=== PATIENT | male | born 1980 | race Caucasian/White ===

== ENCOUNTER 2017-12-03 17:48 | Emergency (ER) | END 2017-12-03 20:25 | disposition home or self-care (01) ==

== ENCOUNTER 2019-08-23 18:44 | Emergency (ER) | payer OTHER ==
[~2019-08-23] VITALS: Ht 182.9 cm; Wt 115.2 kg
[~2019-08-23 18:44] MED LIST: Acetaminophen-1 EAC1 PO; BP MED; IBUP800 PO; INSULIN GLARGINE SC; METF500C PO; Robaxin-750750 MG PO
[2019-08-23 19:34] LABS: Hemoglobin 19.7 g/dL (13.5-17.5); Mean Corpuscular HGB 28.6 pg (26.0-34.0); Mean Corpuscular HGB Conc 33.3 g/dL (31.5-36.5); Mean Corpuscular Volume 86 fL (80-100); Mean Platelet Volume 10.1 fL (9.1-12.4); Platelet Count 226 K/mm3 (150-400); RDW Coefficient Variation 13.2 % (11.7-14.2); White Blood Cell Count 9.18 K/mm3 (4.00-11.30)
[2019-08-23 19:36] LABS: Hematocrit 59.1 % (37.0-53.0)
[2019-08-23 19:40] LABS: BASOPHILS ABSOLUTE AUTO 0.07 K/mm3 (0.00-0.23); BASOPHILS PERCENT AUTO 1 % (0-2); EOSINOPHILS ABSOLUTE AUTO 0.12 K/mm3 (0.00-0.68); EOSINOPHILS PERCENT AUTO 1 % (0-6); IMMATURE GRAN ABSOLUTE AUTO 0.01 K/mm3 (0.00-0.10); IMMATURE GRAN PERCENT AUTO 0 % (0-1); LYMPHOCYTES ABSOLUTE AUTO 3.15 K/mm3 (0.84-5.20); LYMPHOCYTES PERCENT AUTO 34 % (21-46); MONOCYTES ABSOLUTE AUTO 0.71 K/mm3 (0.16-1.47); MONOCYTES PERCENT AUTO 8 % (4-13); NEUTROPHILS ABSOLUTE AUTO 5.12 K/mm3 (1.96-9.15); NEUTROPHILS PERCENT AUTO 56 % (41-73)
[2019-08-23 19:54] LABS: Alanine Aminotransfer (ALT/SGP 31 U/L (12-78); Albumin, Blood 3.6 g/dL (3.4-5.0); Albumin/Globulin Ratio 0.9 (0.8-1.8); Alk Phos 81 U/L (50-136); Anion Gap 8 mmol/L (6-16); Aspartate Aminotrans (AST/SGOT 24 U/L (12-37); Bilirubin, Total 0.3 mg/dL (0.1-1.0); Blood Urea Nitrogen 13 mg/dL (8-24); CO2, Blood 23 mmol/L (21-32); Calcium, Blood 9.5 mg/dL (8.5-10.1); Chloride, Blood 106 mmol/L (98-108); Creatinine, Blood 0.76 mg/dL (0.60-1.20); Globulin, Blood 3.9 g/dL (2.2-4.0); Glomerular Filtration Rate >60 (60-); Glucose, Blood 295 mg/dL (70-99); Potassium, Blood 3.9 mmol/L (3.5-5.5); Sodium, Blood 137 mmol/L (136-145); Total Protein, Blood 7.5 g/dL (6.4-8.2); Troponin I <0.015 ng/mL (0.000-0.040)
[2019-08-23] MEDS ORDERED: Prinivil10 MG PO (22:08)
== END 2019-08-23 22:39 | disposition home or self-care (01) ==
LOC: ER 18:44
PROVIDERS: Physician Assistant
DX: I10 Essential (primary) hypertension (principal); F41.9 Anxiety disorder, unspecified; E11.9 Type 2 diabetes mellitus without complications; F17.200 Nicotine dependence, unspecified, uncomplicated; Z79.84 Long term (current) use of oral hypoglycemic drugs; Z79.899 Other long term (current) drug therapy
CPT/HCPCS: 36415; 71046; 80053; 82947; 84484; 85025; 93005; 93010; 96374; 96375; 99284-25; J2060

== ENCOUNTER 2019-08-25 12:38 | Emergency (ER) | payer OTHER ==
[~2019-08-25] VITALS: Ht 182.9 cm; Wt 113.4 kg
[~2019-08-25 12:38] MED LIST changes: +Prinivil10 MG PO
[2019-08-25 13:09] LABS: BASOPHILS ABSOLUTE AUTO 0.05 K/mm3 (0.00-0.23); BASOPHILS PERCENT AUTO 1 % (0-2); EOSINOPHILS ABSOLUTE AUTO 0.13 K/mm3 (0.00-0.68); EOSINOPHILS PERCENT AUTO 2 % (0-6); Hemoglobin 20.4 g/dL (13.5-17.5); IMMATURE GRAN ABSOLUTE AUTO 0.01 K/mm3 (0.00-0.10); IMMATURE GRAN PERCENT AUTO 0 % (0-1); LYMPHOCYTES ABSOLUTE AUTO 2.33 K/mm3 (0.84-5.20); LYMPHOCYTES PERCENT AUTO 36 % (21-46); MONOCYTES ABSOLUTE AUTO 0.41 K/mm3 (0.16-1.47); MONOCYTES PERCENT AUTO 6 % (4-13); Mean Corpuscular HGB Conc 33.1 g/dL (31.5-36.5); Mean Corpuscular Volume 88 fL (80-100); Mean Platelet Volume 9.7 fL (9.1-12.4); NEUTROPHILS ABSOLUTE AUTO 3.52 K/mm3 (1.96-9.15); NEUTROPHILS PERCENT AUTO 55 % (41-73); Platelet Count 218 K/mm3 (150-400); RDW Coefficient Variation 14.2 % (11.7-14.2); RDW Standard Deviation 43.2 fL (35.1-46.3); Red Blood Cell Count 7.04 M/mm3 (4.30-5.90); White Blood Cell Count 6.45 K/mm3 (4.00-11.30)
[2019-08-25 13:19] LABS: Hematocrit 61.6 % (37.0-53.0)
[2019-08-25 13:27] LABS: Alanine Aminotransfer (ALT/SGP 34 U/L (12-78); Albumin, Blood 3.6 g/dL (3.4-5.0); Albumin/Globulin Ratio 0.9 (0.8-1.8); Alk Phos 84 U/L (50-136); Anion Gap 7 mmol/L (6-16); Aspartate Aminotrans (AST/SGOT 18 U/L (12-37); Bilirubin, Total 0.5 mg/dL (0.1-1.0); Blood Urea Nitrogen 9 mg/dL (8-24); Bun/Creatinine Ratio 11.7 (12.0-20.0); CO2, Blood 26 mmol/L (21-32); Calcium, Blood 9.2 mg/dL (8.5-10.1); Chloride, Blood 106 mmol/L (98-108); Creatinine, Blood 0.77 mg/dL (0.60-1.20); Globulin, Blood 4.1 g/dL (2.2-4.0); Glomerular Filtration Rate >60 (60-); Glucose, Blood 259 mg/dL (70-99); Sodium, Blood 139 mmol/L (136-145); Total Protein, Blood 7.7 g/dL (6.4-8.2); Troponin I <0.015 ng/mL (0.000-0.040)
[2019-08-25] MEDS ORDERED: Roxicodone5 MG PO (16:23)
== END 2019-08-25 16:33 | disposition home or self-care (01) ==
LOC: ER 12:38
PROVIDERS: Physician Assistant
DX: D75.1 Secondary polycythemia (principal); E11.9 Type 2 diabetes mellitus without complications; I10 Essential (primary) hypertension; F17.210 Nicotine dependence, cigarettes, uncomplicated
CPT/HCPCS: 36415; 70450; 80053; 83880; 84484; 85025; 93005; 93010; 99284-25

== ENCOUNTER 2019-09-24 19:37 | Emergency (ER) | payer OTHER ==
[~2019-09-24] VITALS: Ht 182.9 cm; Wt 112.5 kg
[~2019-09-24 19:37] MED LIST changes: +BENZ100A PO; +MOTRIN IB200 MG PO; +ONDA4ODT SL; +Roxicodone5 MG PO; +Tamiflu75 MG PO
[2019-09-24 20:21] LABS: BASOPHILS ABSOLUTE AUTO 0.06 K/mm3 (0.00-0.23); BASOPHILS PERCENT AUTO 1 % (0-2); EOSINOPHILS ABSOLUTE AUTO 0.15 K/mm3 (0.00-0.68); EOSINOPHILS PERCENT AUTO 2 % (0-6); Hematocrit 51.2 % (37.0-53.0); Hemoglobin 17.1 g/dL (13.5-17.5); IMMATURE GRAN ABSOLUTE AUTO 0.02 K/mm3 (0.00-0.10); IMMATURE GRAN PERCENT AUTO 0 % (0-1); LYMPHOCYTES ABSOLUTE AUTO 2.98 K/mm3 (0.84-5.20); LYMPHOCYTES PERCENT AUTO 40 % (21-46); MONOCYTES PERCENT AUTO 8 % (4-13); Mean Corpuscular HGB 28.8 pg (26.0-34.0); Mean Corpuscular HGB Conc 33.4 g/dL (31.5-36.5); Mean Corpuscular Volume 86 fL (80-100); Mean Platelet Volume 9.4 fL (9.1-12.4); NEUTROPHILS ABSOLUTE AUTO 3.74 K/mm3 (1.96-9.15); NEUTROPHILS PERCENT AUTO 50 % (41-73); Platelet Count 232 K/mm3 (150-400); RDW Coefficient Variation 13.1 % (11.7-14.2); RDW Standard Deviation 40.7 fL (35.1-46.3); Red Blood Cell Count 5.93 M/mm3 (4.30-5.90); White Blood Cell Count 7.55 K/mm3 (4.00-11.30)
[2019-09-24 20:44] LABS: Alanine Aminotransfer (ALT/SGP 35 U/L (12-78); Albumin, Blood 3.1 g/dL (3.4-5.0); Albumin/Globulin Ratio 0.8 (0.8-1.8); Alk Phos 92 U/L (50-136); Anion Gap 5 mmol/L (6-16); Aspartate Aminotrans (AST/SGOT 18 U/L (12-37); Bilirubin, Total 0.2 mg/dL (0.1-1.0); Blood Urea Nitrogen 12 mg/dL (8-24); Bun/Creatinine Ratio 15.5 (12.0-20.0); CO2, Blood 27 mmol/L (21-32); Calcium, Blood 9.1 mg/dL (8.5-10.1); Chloride, Blood 107 mmol/L (98-108); Creatinine, Blood 0.77 mg/dL (0.60-1.20); Globulin, Blood 3.7 g/dL (2.2-4.0); Glomerular Filtration Rate >60 (60-); Glucose, Blood 178 mg/dL (70-99); Potassium, Blood 3.9 mmol/L (3.5-5.5); Sodium, Blood 139 mmol/L (136-145); Total Protein, Blood 6.8 g/dL (6.4-8.2); Troponin I <0.015 ng/mL (0.000-0.040)
== END 2019-09-24 22:26 | disposition home or self-care (01) ==
LOC: ER 19:37
PROVIDERS: Physician Assistant
DX: R07.9 Chest pain, unspecified (principal); E11.9 Type 2 diabetes mellitus without complications; I10 Essential (primary) hypertension; F17.210 Nicotine dependence, cigarettes, uncomplicated; Z79.899 Other long term (current) drug therapy
CPT/HCPCS: 36415; 71046; 80053; 83880; 84484; 85025; 93005; 93010; 99284-25

== ENCOUNTER → 2019-11-17 | Outpatient (CLI) | payer OTHER ==
[~2019-11-17] MED LIST changes: +ATOR10 PO; +METF500 PO; +PRED5 PO
[2019-11-17 13:26] LABS: BASOPHILS ABSOLUTE AUTO 0.07 K/mm3 (0.00-0.23); BASOPHILS PERCENT AUTO 1 % (0-2); EOSINOPHILS ABSOLUTE AUTO 0.22 K/mm3 (0.00-0.68); EOSINOPHILS PERCENT AUTO 4 % (0-6); Hematocrit 50.4 % (37.0-53.0); Hemoglobin 17.2 g/dL (13.5-17.5); IMMATURE GRAN ABSOLUTE AUTO 0.01 K/mm3 (0.00-0.10); IMMATURE GRAN PERCENT AUTO 0 % (0-1); LYMPHOCYTES PERCENT AUTO 47 % (21-46); MONOCYTES ABSOLUTE AUTO 0.39 K/mm3 (0.16-1.47); MONOCYTES PERCENT AUTO 7 % (4-13); Mean Corpuscular HGB 29.1 pg (26.0-34.0); Mean Corpuscular HGB Conc 34.1 g/dL (31.5-36.5); Mean Corpuscular Volume 85 fL (80-100); Mean Platelet Volume 9.6 fL (9.1-12.4); NEUTROPHILS ABSOLUTE AUTO 2.35 K/mm3 (1.96-9.15); NEUTROPHILS PERCENT AUTO 41 % (41-73); Platelet Count 232 K/mm3 (150-400); RDW Coefficient Variation 13.2 % (11.7-14.2); RDW Standard Deviation 41.2 fL (35.1-46.3); Red Blood Cell Count 5.91 M/mm3 (4.30-5.90); White Blood Cell Count 5.74 K/mm3 (4.00-11.30)
[2019-11-17 13:32] LABS: Anion Gap 8 mmol/L (6-16); Blood Urea Nitrogen 11 mg/dL (8-24); Bun/Creatinine Ratio 10.9 (12.0-20.0); CO2, Blood 26 mmol/L (21-32); Calcium, Blood 8.8 mg/dL (8.5-10.1); Chloride, Blood 105 mmol/L (98-108); Creatinine, Blood 1.01 mg/dL (0.60-1.20); Glomerular Filtration Rate >60 (60-); Glucose, Blood 205 mg/dL (70-99); Potassium, Blood 3.9 mmol/L (3.5-5.5); Sodium, Blood 139 mmol/L (136-145)
== END | disposition home or self-care (01) ==
LOC: LAB SHORT 13:22 → LAB 13:22 → LAB EV 13:22
PROVIDERS: Physician Assistant Medical
DX: M54.5 Low back pain (principal)
CPT/HCPCS: 80048; 85025

== ENCOUNTER 2019-11-22 22:54 | Emergency (ER) | payer OTHER ==
[~2019-11-22] VITALS: Ht 182.9 cm; Wt 114.3 kg
[~2019-11-22 22:54] MED LIST changes: -ATOR10 PO; -METF500 PO; -PRED5 PO
[2019-11-22] MEDS ORDERED: PRED5 PO (23:05)
[2019-11-22] MEDS ORDERED: ATOR10 PO (23:05)
[2019-11-22] MEDS ORDERED: METF500 PO (23:05)
[2019-11-22 23:12] LABS: BASOPHILS ABSOLUTE AUTO 0.03 K/mm3 (0.00-0.23); BASOPHILS PERCENT AUTO 0 % (0-2); EOSINOPHILS PERCENT AUTO 0 % (0-6); Hematocrit 51.3 % (37.0-53.0); Hemoglobin 17.4 g/dL (13.5-17.5); IMMATURE GRAN ABSOLUTE AUTO 0.03 K/mm3 (0.00-0.10); IMMATURE GRAN PERCENT AUTO 0 % (0-1); LYMPHOCYTES ABSOLUTE AUTO 2.25 K/mm3 (0.84-5.20); LYMPHOCYTES PERCENT AUTO 22 % (21-46); MONOCYTES ABSOLUTE AUTO 0.58 K/mm3 (0.16-1.47); MONOCYTES PERCENT AUTO 6 % (4-13); Mean Corpuscular HGB 28.6 pg (26.0-34.0); Mean Corpuscular HGB Conc 33.9 g/dL (31.5-36.5); Mean Corpuscular Volume 84 fL (80-100); Mean Platelet Volume 10.5 fL (9.1-12.4); NEUTROPHILS ABSOLUTE AUTO 7.51 K/mm3 (1.96-9.15); NEUTROPHILS PERCENT AUTO 72 % (41-73); Platelet Count 305 K/mm3 (150-400); RDW Coefficient Variation 12.9 % (11.7-14.2); Red Blood Cell Count 6.08 M/mm3 (4.30-5.90)
[2019-11-22 23:59] LABS: Alanine Aminotransfer (ALT/SGP 32 U/L (12-78); Albumin, Blood 3.1 g/dL (3.4-5.0); Albumin/Globulin Ratio 0.8 (0.8-1.8); Alk Phos 71 U/L (50-136); Anion Gap 11 mmol/L (6-16); Aspartate Aminotrans (AST/SGOT 16 U/L (12-37); Bilirubin, Total 0.3 mg/dL (0.1-1.0); Blood Urea Nitrogen 12 mg/dL (8-24); CO2, Blood 20 mmol/L (21-32); Calcium, Blood 8.8 mg/dL (8.5-10.1); Chloride, Blood 107 mmol/L (98-108); Creatinine, Blood 0.67 mg/dL (0.60-1.20); Globulin, Blood 3.8 g/dL (2.2-4.0); Glomerular Filtration Rate >60 (60-); Glucose, Blood 219 mg/dL (70-99); Potassium, Blood 3.6 mmol/L (3.5-5.5); Sodium, Blood 138 mmol/L (136-145); Total Protein, Blood 6.9 g/dL (6.4-8.2); Troponin I <0.015 ng/mL (0.000-0.040)
== END 2019-11-23 01:10 | disposition home or self-care (01) ==
LOC: ER 22:54
PROVIDERS: Emergency Medicine
DX: R07.89 Other chest pain (principal); I10 Essential (primary) hypertension; E11.9 Type 2 diabetes mellitus without complications; E78.5 Hyperlipidemia, unspecified; Z79.899 Other long term (current) drug therapy; Z79.84 Long term (current) use of oral hypoglycemic drugs
CPT/HCPCS: 71046; 80053; 83690; 83880; 84484; 85025; 93005; 93010; 99285-25

== ENCOUNTER → 2019-12-17 | Outpatient (CLI) | payer OTHER ==
[~2019-12-17] MED LIST changes: +ATOR10 PO; +METF500 PO; +PRED5 PO
[2019-12-17 20:22] LABS: Free Thyroxine 1.14 ng/dL (0.70-1.60)
[2019-12-17 20:26] LABS: Thyroid Stimulating Hormone 0.988 uIU/mL (0.360-4.800)
== END | disposition home or self-care (01) ==
LOC: LAB SHORT 19:07 → LAB 19:07
PROVIDERS: Internal Medicine Hematology & Oncology
DX: R53.83 Other fatigue (principal)
CPT/HCPCS: 84439; 84443

== ENCOUNTER 2020-04-13 19:08 | Emergency (ER) | payer OTHER ==
[~2020-04-13] VITALS: Ht 182.9 cm; Wt 107.5 kg
[2020-04-13 19:53] LABS: BASOPHILS ABSOLUTE AUTO 0.05 K/mm3 (0.00-0.23); BASOPHILS PERCENT AUTO 1 % (0-2); EOSINOPHILS ABSOLUTE AUTO 0.15 K/mm3 (0.00-0.68); EOSINOPHILS PERCENT AUTO 2 % (0-6); Hematocrit 52.4 % (37.0-53.0); Hemoglobin 16.9 g/dL (13.5-17.5); IMMATURE GRAN ABSOLUTE AUTO 0.01 K/mm3 (0.00-0.10); IMMATURE GRAN PERCENT AUTO 0 % (0-1); LYMPHOCYTES ABSOLUTE AUTO 2.61 K/mm3 (0.84-5.20); LYMPHOCYTES PERCENT AUTO 39 % (21-46); MONOCYTES ABSOLUTE AUTO 0.54 K/mm3 (0.16-1.47); MONOCYTES PERCENT AUTO 8 % (4-13); Mean Corpuscular HGB 26.4 pg (26.0-34.0); Mean Corpuscular HGB Conc 32.3 g/dL (31.5-36.5); Mean Corpuscular Volume 82 fL (80-100); NEUTROPHILS ABSOLUTE AUTO 3.26 K/mm3 (1.96-9.15); NEUTROPHILS PERCENT AUTO 49 % (41-73); Platelet Count 263 K/mm3 (150-400); RDW Coefficient Variation 14.7 % (11.7-14.2); Red Blood Cell Count 6.41 M/mm3 (4.30-5.90); White Blood Cell Count 6.62 K/mm3 (4.00-11.30)
[2020-04-13 20:20] LABS: Troponin I <0.015 ng/mL (0.000-0.040)
[2020-04-13 20:29] LABS: Alanine Aminotransfer (ALT/SGP 28 U/L (12-78); Albumin, Blood 3.4 g/dL (3.4-5.0); Albumin/Globulin Ratio 0.8 (0.8-1.8); Alk Phos 90 U/L (50-136); Anion Gap 7 mmol/L (6-16); Aspartate Aminotrans (AST/SGOT 17 U/L (12-37); Bilirubin, Total 0.4 mg/dL (0.1-1.0); Blood Urea Nitrogen 11 mg/dL (8-24); Bun/Creatinine Ratio 13.4 (12.0-20.0); CO2, Blood 27 mmol/L (21-32); Calcium, Blood 9.8 mg/dL (8.5-10.1); Chloride, Blood 109 mmol/L (98-108); Creatinine, Blood 0.82 mg/dL (0.60-1.20); Glomerular Filtration Rate >60 (60-); Glucose, Blood 211 mg/dL (70-99); Potassium, Blood 3.4 mmol/L (3.5-5.5); Sodium, Blood 143 mmol/L (136-145); Total Protein, Blood 7.4 g/dL (6.4-8.2)
== END 2020-04-13 21:17 | disposition home or self-care (01) ==
LOC: ER 19:08
PROVIDERS: Physician Assistant
DX: R51.9 Headache, unspecified (principal); R42 Dizziness and giddiness; R03.0 Elevated blood-pressure reading, without diagnosis of hypertension; F17.210 Nicotine dependence, cigarettes, uncomplicated; Z79.84 Long term (current) use of oral hypoglycemic drugs; Z79.899 Other long term (current) drug therapy; Z20.828 Contact with and (suspected) exposure to other viral communicable diseases
CPT/HCPCS: 36415; 70450; 71046; 80053; 84484; 85025; 93005; 93010; 99284-25; U0003

== ENCOUNTER 2020-06-29 19:12 | Observation (INO) | payer OTHER ==
[~2020-06-29] VITALS: Ht 182.9 cm; Wt 108.7 kg
[~2020-06-29 19:12] MED LIST changes: -METF500 PO
[2020-06-29 19:45] LABS: BASOPHILS ABSOLUTE AUTO 0.02 K/mm3 (0.00-0.23); BASOPHILS PERCENT AUTO 0 % (0-2); EOSINOPHILS ABSOLUTE AUTO 0.08 K/mm3 (0.00-0.68); EOSINOPHILS PERCENT AUTO 1 % (0-6); Hematocrit 50.2 % (37.0-53.0); Hemoglobin 16.5 g/dL (13.5-17.5); IMMATURE GRAN ABSOLUTE AUTO 0.02 K/mm3 (0.00-0.10); IMMATURE GRAN PERCENT AUTO 0 % (0-1); LYMPHOCYTES ABSOLUTE AUTO 2.68 K/mm3 (0.84-5.20); LYMPHOCYTES PERCENT AUTO 36 % (21-46); MONOCYTES ABSOLUTE AUTO 0.44 K/mm3 (0.16-1.47); MONOCYTES PERCENT AUTO 6 % (4-13); Mean Corpuscular HGB 25.7 pg (26.0-34.0); Mean Corpuscular HGB Conc 32.9 g/dL (31.5-36.5); Mean Corpuscular Volume 78 fL (80-100); Mean Platelet Volume 9.4 fL (9.1-12.4); NEUTROPHILS ABSOLUTE AUTO 4.14 K/mm3 (1.96-9.15); NEUTROPHILS PERCENT AUTO 56 % (41-73); Platelet Count 239 K/mm3 (150-400); RDW Coefficient Variation 15.5 % (11.7-14.2); RDW Standard Deviation 41.1 fL (35.1-46.3); Red Blood Cell Count 6.42 M/mm3 (4.30-5.90); White Blood Cell Count 7.38 K/mm3 (4.00-11.30)
[2020-06-29 20:16] LABS: Alanine Aminotransfer (ALT/SGP 35 U/L (12-78); Albumin, Blood 3.2 g/dL (3.4-5.0); Albumin/Globulin Ratio 0.9 (0.8-1.8); Alk Phos 108 U/L (50-136); Anion Gap 10 mmol/L (6-16); Aspartate Aminotrans (AST/SGOT 19 U/L (12-37); Bilirubin, Total 0.3 mg/dL (0.1-1.0); Blood Urea Nitrogen 9 mg/dL (8-24); Bun/Creatinine Ratio 11.3 (12.0-20.0); CO2, Blood 24 mmol/L (21-32); Calcium, Blood 9.5 mg/dL (8.5-10.1); Chloride, Blood 103 mmol/L (98-108); Globulin, Blood 3.7 g/dL (2.2-4.0); Glomerular Filtration Rate >60 (60-); Glucose, Blood 238 mg/dL (70-99); Potassium, Blood 3.3 mmol/L (3.5-5.5); Sodium, Blood 137 mmol/L (136-145); Total Protein, Blood 6.9 g/dL (6.4-8.2); Troponin I <0.015 ng/mL (0.000-0.040)
[2020-06-29] MEDS ORDERED: Prinivil10 MG PO (21:44)
--- NOTE | 2020-06-29 23:22 | NUR ---
ADMIT NOTE RECEIVED HANDOFF FROM ER NURSE BRO. PT ARRIVED ON FLOOR VIA GURNEY. PERSONNAL POSSESSIONS WITH PT. PT ORIENTED TO UNIT. CALL BUTTON WITHIN REACH
[2020-06-30 04:44] LABS: BASOPHILS ABSOLUTE AUTO 0.02 K/mm3 (0.00-0.23); BASOPHILS PERCENT AUTO 0 % (0-2); EOSINOPHILS ABSOLUTE AUTO 0.09 K/mm3 (0.00-0.68); EOSINOPHILS PERCENT AUTO 1 % (0-6); Hematocrit 49.7 % (37.0-53.0); Hemoglobin 15.6 g/dL (13.5-17.5); IMMATURE GRAN ABSOLUTE AUTO 0.02 K/mm3 (0.00-0.10); IMMATURE GRAN PERCENT AUTO 0 % (0-1); LYMPHOCYTES ABSOLUTE AUTO 2.78 K/mm3 (0.84-5.20); LYMPHOCYTES PERCENT AUTO 45 % (21-46); MONOCYTES ABSOLUTE AUTO 0.59 K/mm3 (0.16-1.47); MONOCYTES PERCENT AUTO 10 % (4-13); Mean Corpuscular HGB 24.8 pg (26.0-34.0); Mean Corpuscular HGB Conc 31.4 g/dL (31.5-36.5); Mean Corpuscular Volume 79 fL (80-100); Mean Platelet Volume 9.6 fL (9.1-12.4); NEUTROPHILS ABSOLUTE AUTO 2.74 K/mm3 (1.96-9.15); NEUTROPHILS PERCENT AUTO 44 % (41-73); Platelet Count 237 K/mm3 (150-400); RDW Coefficient Variation 14.7 % (11.7-14.2); White Blood Cell Count 6.24 K/mm3 (4.00-11.30)
[2020-06-30 05:03] LABS: Alanine Aminotransfer (ALT/SGP 30 U/L (12-78); Albumin, Blood 2.7 g/dL (3.4-5.0); Albumin/Globulin Ratio 0.8 (0.8-1.8); Alk Phos 98 U/L (50-136); Anion Gap 5 mmol/L (6-16); Aspartate Aminotrans (AST/SGOT 15 U/L (12-37); Bilirubin, Total 0.3 mg/dL (0.1-1.0); Blood Urea Nitrogen 12 mg/dL (8-24); CO2, Blood 30 mmol/L (21-32); Calcium, Blood 9.1 mg/dL (8.5-10.1); Chloride, Blood 108 mmol/L (98-108); Creatinine, Blood 0.86 mg/dL (0.60-1.20); Globulin, Blood 3.5 g/dL (2.2-4.0); Glomerular Filtration Rate >60 (60-); Glucose, Blood 190 mg/dL (70-99); Potassium, Blood 3.6 mmol/L (3.5-5.5); Sodium, Blood 143 mmol/L (136-145); Total Protein, Blood 6.2 g/dL (6.4-8.2)
--- NOTE | 2020-06-30 05:03 | NUR ---
SHIFT SUMMARY ADMITTED FROM ER THIS SHIFT FOR CHEST PAIN/HTN. FULL CODE. PLAN IS FOR CARDIOLOGY CONSULT: POSSIBLY PAPER WOOD CUTTER VS STRESS TEST THIS MORNING. PT HAS HAD NO CAFFEINE OR CHOCOLATE SINCE ADMIT, PT HAS BEEN NPO SINCE MIDNIGHT THIS SHIFT. HE DENIES PAIN THIS SHIFT. TELEMETRY: NSR @ 87 BPM. LOVENOX HAS BEEN HELD.
[2020-06-30 05:07] LABS: CPK Creatine Kinase 48 U/L (39-308); Troponin I <0.015 ng/mL (0.000-0.040)
[2020-06-30 08:25] LABS: Source, Urine Clean Catch
[2020-06-30 08:28] LABS: Appearance, Urine Clear (Clear); Bilirubin, Urine Neg (Neg); Blood, Urine Neg (Neg); Color, Urine Yellow (P-Yellow); Glucose Qualitative, Urine 4+ (Neg); Ketones, Urine Neg (Neg); Leukocyte Esterase, Urine Neg (Neg); Nitrite, Urine Neg (Neg); Protein, Urine 4+ (Neg); Specific Gravity, Urine 1.025 (1.003-1.022); Urobilinogen, Urine NORM (Normal)
[2020-06-30 08:52] LABS: Bacteria Rare /hpf; Mucus Mod (0-Heavy); Red Blood Cells, Urine 0-2 /hpf (0-2); Squamous Epithelial Cells Not Seen /hpf (Few); White Blood Cells, Urine 0-2 /hpf (0-5)
[2020-06-30 08:53] LABS: Calcium Oxalate Crystals Many /hpf; Hyaline Casts 0-2 /lpf (0-2)
[2020-06-30 08:58] LABS: U Amphetamine Screen Not Detected; U Barbituate Screen Not Detected; U Benzodiazapine Screen Not Detected; U Buprenorphine Screen Not Detected; U Cannabinoids Screen Not Detected; U Cocaine Screen Not Detected; U Methadone Screen Not Detected; U Methamphetamine Screen Not Detected; U Opiates Screen Not Detected; U Oxycodone Screen Not Detected; U Phencyclidine Screen Not Detected; U Propoxyphene Screen Not Detected
[2020-06-30 12:21] LABS: CPK Creatine Kinase 46 U/L (39-308); Troponin I <0.015 ng/mL (0.000-0.040)
[2020-06-30] MEDS ORDERED: BASAGLAR INSULIN SC (15:28)
--- NOTE | 2020-06-30 20:03 | NUR ---
SUMMARY PT IS A/O X4, IND IN ROOM. HE STATE CONTINUING L CHEST PRESSURE THAT RADIATES TO HIS NECK, TOLERABLE T/O DAY. CARDIAC ENZYMES HAVE BEEN WNL. TELE MX REPORT NSR 90-100. HE HAD CARDIAC CONSULT w DR SILVA THIS AM, STRESS TEST ORDERED. 1ST PORTION OF STRESS TEST & ECHO COMPLETED TODAY. HE WILL HAVE 2ND PORTION STRESS TEST TOMORROW, NPO @ 0600. NOC RN NOTIFIED. BP HAVE BEEN ELEVATED, PT STATE THIS HAS BEEN ONGOING @ HOME PRIOR TO ADMIT w SBP HIGH 200. THIS AFTERNOON SBP 170'S, PRN HYDRALAZINE INEFFECTIVE. DR JEONG ORDER IV LEBETALOL, GIVEN. NOC RN WILL MX FOR EFFECTIVENESS. PT STATE MULT STRESSORS, ENCOURAGED HIM TO TALK TO ABOUT ANTIDEPRESSANT IN AM.
--- NOTE | 2020-07-01 04:47 | NUR ---
SHIFT SUMMARY PT IS A/O X4 AND IND IN ROOM. PT REPORTS CHEST PRESSURE/PAIN, WHICH HE STATES HAS NOT CHANGED OR INCREASED SINCE ADMIT. DENIES NEED FOR MEDICATION OVERNIGHT. BP IMPROVING SOMEWHAT OVERNIGHT. PT ON TELE, HAS BEEN SINUS OVERNIGHT PER PASTE UP ARTIST. WILL BE NPO AT 0600 FOR STRESS TEST TODAY. PT RESTING AT THIS TIME, CALL LIGHT IN REACH.
[2020-07-01 12:25] LABS: Anion Gap 6 mmol/L (6-16); Blood Urea Nitrogen 12 mg/dL (8-24); Bun/Creatinine Ratio 14.7 (12.0-20.0); CO2, Blood 25 mmol/L (21-32); Calcium, Blood 8.8 mg/dL (8.5-10.1); Chloride, Blood 108 mmol/L (98-108); Creatinine, Blood 0.82 mg/dL (0.60-1.20); Glomerular Filtration Rate >60 (60-); Glucose, Blood 252 mg/dL (70-99); Magnesium, Blood 2.1 mg/dL (1.6-2.4); Potassium, Blood 3.8 mmol/L (3.5-5.5); Sodium, Blood 139 mmol/L (136-145)
[2020-07-01] MEDS ORDERED: ASPI81CH PO (16:48)
[2020-07-01] MEDS ORDERED: CARV3.125 PO (16:48)
--- NOTE | 2020-07-01 17:12 | NUR ---
PATIENT DISCHARGED HOME WITH . VERBALIZED UNDERSTANDING OF ALL DISCHARGE INSTRUCTIONS AND ALL QUESTIONS ANSWERED. ALL PERSONAL BELONGINGS IN HIS POSSESSION.
== END 2020-07-01 17:06 | disposition home or self-care (01) ==
LOC: ER 19:12 → MEDS 19:13
PROVIDERS: Emergency Medicine; Family Medicine; ADMIT Internal Medicine
DX: R07.9 Chest pain, unspecified (principal); I16.0 Hypertensive urgency; I10 Essential (primary) hypertension; E87.6 Hypokalemia; E11.65 Type 2 diabetes mellitus with hyperglycemia; R94.31 Abnormal electrocardiogram [ECG] [EKG]; E78.5 Hyperlipidemia, unspecified; F17.210 Nicotine dependence, cigarettes, uncomplicated; D75.1 Secondary polycythemia; E66.9 Obesity, unspecified; Z68.27 Body mass index [BMI] 27.0-27.9, adult; Z79.84 Long term (current) use of oral hypoglycemic drugs; Z79.899 Other long term (current) drug therapy; Z23 Encounter for immunization; Z79.82 Long term (current) use of aspirin; Z20.828 Contact with and (suspected) exposure to other viral communicable diseases
CPT/HCPCS: 36415; 71045; 78452; 80048; 80053; 81001; 82550; 82947; 83036; 83735; 83880; 84484; 85025; 85379; 93005; 93010; 93017; 93306; 99285-25; A9270; A9270-GY; A9500; J0360; J1650

== ENCOUNTER 2020-07-04 01:35 | Emergency (ER) | payer OTHER ==
[~2020-07-04] VITALS: Ht 182.9 cm; Wt 107.0 kg
[~2020-07-04 01:35] MED LIST changes: +ASPI81CH PO; +BASAGLAR INSULIN SC; +CARV3.125 PO
[2020-07-04 02:19] LABS: BASOPHILS ABSOLUTE AUTO 0.04 K/mm3 (0.00-0.23); BASOPHILS PERCENT AUTO 1 % (0-2); EOSINOPHILS ABSOLUTE AUTO 0.08 K/mm3 (0.00-0.68); EOSINOPHILS PERCENT AUTO 1 % (0-6); Hematocrit 55.1 % (37.0-53.0); Hemoglobin 17.3 g/dL (13.5-17.5); IMMATURE GRAN ABSOLUTE AUTO 0.02 K/mm3 (0.00-0.10); IMMATURE GRAN PERCENT AUTO 0 % (0-1); LYMPHOCYTES ABSOLUTE AUTO 3.04 K/mm3 (0.84-5.20); LYMPHOCYTES PERCENT AUTO 41 % (21-46); MONOCYTES ABSOLUTE AUTO 0.75 K/mm3 (0.16-1.47); MONOCYTES PERCENT AUTO 10 % (4-13); Mean Corpuscular HGB 24.7 pg (26.0-34.0); Mean Corpuscular HGB Conc 31.4 g/dL (31.5-36.5); Mean Corpuscular Volume 79 fL (80-100); Mean Platelet Volume 9.5 fL (9.1-12.4); NEUTROPHILS ABSOLUTE AUTO 3.58 K/mm3 (1.96-9.15); NEUTROPHILS PERCENT AUTO 48 % (41-73); Platelet Count 303 K/mm3 (150-400); RDW Coefficient Variation 15.6 % (11.7-14.2); RDW Standard Deviation 42.3 fL (35.1-46.3); Red Blood Cell Count 6.99 M/mm3 (4.30-5.90); White Blood Cell Count 7.51 K/mm3 (4.00-11.30)
[2020-07-04 02:35] LABS: Alanine Aminotransfer (ALT/SGP 36 U/L (12-78); Albumin/Globulin Ratio 0.7 (0.8-1.8); Alk Phos 113 U/L (50-136); Anion Gap 6 mmol/L (6-16); Aspartate Aminotrans (AST/SGOT 24 U/L (12-37); Bilirubin, Total 0.3 mg/dL (0.1-1.0); Blood Urea Nitrogen 20 mg/dL (8-24); Bun/Creatinine Ratio 27.6 (12.0-20.0); CO2, Blood 26 mmol/L (21-32); Calcium, Blood 9.6 mg/dL (8.5-10.1); Chloride, Blood 104 mmol/L (98-108); Creatinine, Blood 0.73 mg/dL (0.60-1.20); Globulin, Blood 4.3 g/dL (2.2-4.0); Glomerular Filtration Rate >60 (60-); Glucose, Blood 277 mg/dL (70-99); Potassium, Blood 4.2 mmol/L (3.5-5.5); Sodium, Blood 136 mmol/L (136-145); Total Protein, Blood 7.3 g/dL (6.4-8.2); Troponin I <0.015 ng/mL (0.000-0.040)
[2020-07-04 03:44] LABS: Influenza A, PCR Negative (NEGATIVE); Influenza B, PCR Negative (NEGATIVE); Resp Syncytial Virus, PCR Negative (NEGATIVE); SARS-Cov-2 (COVID-19) PCR, MMC Negative (NEGATIVE)
== END 2020-07-04 04:27 | disposition home or self-care (01) ==
LOC: ER 01:35
PROVIDERS: Emergency Medicine
DX: B34.9 Viral infection, unspecified (principal); I10 Essential (primary) hypertension; E11.9 Type 2 diabetes mellitus without complications; E78.5 Hyperlipidemia, unspecified; Z20.828 Contact with and (suspected) exposure to other viral communicable diseases; Z87.891 Personal history of nicotine dependence; Z79.84 Long term (current) use of oral hypoglycemic drugs; Z79.82 Long term (current) use of aspirin; Z79.899 Other long term (current) drug therapy
CPT/HCPCS: 0241U; 36415; 71045; 80053; 83880; 84484; 85025; 93005; 93010; 99284-25

== ENCOUNTER 2020-11-28 17:53 | Emergency (ER) | payer OTHER ==
[~2020-11-28] VITALS: Ht 185.4 cm; Wt 110.2 kg
[2020-11-28 18:27] LABS: BASOPHILS ABSOLUTE AUTO 0.03 K/mm3 (0.00-0.23); BASOPHILS PERCENT AUTO 1 % (0-2); EOSINOPHILS ABSOLUTE AUTO 0.04 K/mm3 (0.00-0.68); EOSINOPHILS PERCENT AUTO 1 % (0-6); Hematocrit 51.2 % (37.0-53.0); Hemoglobin 17.1 g/dL (13.5-17.5); IMMATURE GRAN ABSOLUTE AUTO 0.02 K/mm3 (0.00-0.10); IMMATURE GRAN PERCENT AUTO 0 % (0-1); LYMPHOCYTES ABSOLUTE AUTO 2.13 K/mm3 (0.84-5.20); LYMPHOCYTES PERCENT AUTO 34 % (21-46); MONOCYTES ABSOLUTE AUTO 0.47 K/mm3 (0.16-1.47); MONOCYTES PERCENT AUTO 7 % (4-13); Mean Corpuscular HGB 27.4 pg (26.0-34.0); Mean Corpuscular HGB Conc 33.4 g/dL (31.5-36.5); Mean Corpuscular Volume 82 fL (80-100); Mean Platelet Volume 10.3 fL (9.1-12.4); NEUTROPHILS ABSOLUTE AUTO 3.67 K/mm3 (1.96-9.15); NEUTROPHILS PERCENT AUTO 58 % (41-73); NRBC ABSOLUTE 0.02 K/mm3 (0.00-0.02); NRBC Auto 0.3 /100 WBC (0.0-0.2); Platelet Count 252 K/mm3 (150-400); RDW Coefficient Variation 14.8 % (11.7-14.2); RDW Standard Deviation 44.3 fL (35.1-46.3); Red Blood Cell Count 6.24 M/mm3 (4.30-5.90); White Blood Cell Count 6.36 K/mm3 (4.00-11.30)
[2020-11-28] MEDS ORDERED: CARV6.25 PO (18:28)
[2020-11-28] MEDS ORDERED: Lisinopril-Hct1 EAC4 PO (18:28)
[2020-11-28] MEDS ORDERED: EFFEXOR XR37.5 MG PO (18:29)
[2020-11-28] MEDS ORDERED: METF500C PO (18:29)
[2020-11-28] MEDS ORDERED: CLON.1 PO (18:29)
[2020-11-28] MEDS ORDERED: INSULANI SC (18:29)
[2020-11-28 18:50] LABS: Alanine Aminotransfer (ALT/SGP 29 U/L (12-78); Albumin/Globulin Ratio 0.7 (0.8-1.8); Alk Phos 104 U/L (50-136); Anion Gap 5 mmol/L (6-16); Aspartate Aminotrans (AST/SGOT 17 U/L (12-37); Bilirubin, Total 0.3 mg/dL (0.1-1.0); Blood Urea Nitrogen 17 mg/dL (8-24); Bun/Creatinine Ratio 17.1 (12.0-20.0); CO2, Blood 26 mmol/L (21-32); Calcium, Blood 9.7 mg/dL (8.5-10.1); Chloride, Blood 106 mmol/L (98-108); Creatinine, Blood 0.99 mg/dL (0.60-1.20); Globulin, Blood 4.2 g/dL (2.2-4.0); Glomerular Filtration Rate >60 (60-); Glucose, Blood 341 mg/dL (70-99); Sodium, Blood 137 mmol/L (136-145); Total Protein, Blood 7.2 g/dL (6.4-8.2); Troponin I <0.015 ng/mL (0.000-0.040)
== END 2020-11-28 20:10 | disposition home or self-care (01) ==
LOC: ER 17:53
PROVIDERS: Emergency Medicine
DX: I10 Essential (primary) hypertension (principal); R07.9 Chest pain, unspecified; E11.9 Type 2 diabetes mellitus without complications; E78.5 Hyperlipidemia, unspecified; Z79.82 Long term (current) use of aspirin; Z79.84 Long term (current) use of oral hypoglycemic drugs; Z79.899 Other long term (current) drug therapy; Z87.891 Personal history of nicotine dependence
CPT/HCPCS: 36415; 71045; 80053; 84443; 84484; 85025; 93005; 93010; 96374; 99284-25

== ENCOUNTER 2020-12-26 12:05 | Emergency (ER) | payer OTHER ==
[~2020-12-26] VITALS: Ht 185.4 cm; Wt 107.0 kg
[~2020-12-26 12:05] MED LIST changes: +CARV6.25 PO; +CLON.1 PO; +EFFEXOR XR37.5 MG PO; +INSULANI SC; +Lisinopril-Hct1 EAC4 PO
[2020-12-26 12:51] LABS: BASOPHILS ABSOLUTE AUTO 0.03 K/mm3 (0.00-0.23); BASOPHILS PERCENT AUTO 1 % (0-2); EOSINOPHILS ABSOLUTE AUTO 0.07 K/mm3 (0.00-0.68); EOSINOPHILS PERCENT AUTO 1 % (0-6); Hematocrit 54.1 % (37.0-53.0); Hemoglobin 18.4 g/dL (13.5-17.5); IMMATURE GRAN ABSOLUTE AUTO 0.01 K/mm3 (0.00-0.10); IMMATURE GRAN PERCENT AUTO 0 % (0-1); LYMPHOCYTES ABSOLUTE AUTO 2.25 K/mm3 (0.84-5.20); LYMPHOCYTES PERCENT AUTO 37 % (21-46); MONOCYTES PERCENT AUTO 8 % (4-13); Mean Corpuscular HGB 27.6 pg (26.0-34.0); Mean Corpuscular Volume 81 fL (80-100); Mean Platelet Volume 9.9 fL (9.1-12.4); NEUTROPHILS ABSOLUTE AUTO 3.23 K/mm3 (1.96-9.15); NEUTROPHILS PERCENT AUTO 53 % (41-73); Platelet Count 224 K/mm3 (150-400); RDW Coefficient Variation 14.1 % (11.7-14.2); RDW Standard Deviation 40.7 fL (35.1-46.3); Red Blood Cell Count 6.67 M/mm3 (4.30-5.90); White Blood Cell Count 6.09 K/mm3 (4.00-11.30)
[2020-12-26 13:17] LABS: Alanine Aminotransfer (ALT/SGP 28 U/L (12-78); Albumin, Blood 2.8 g/dL (3.4-5.0); Albumin/Globulin Ratio 0.7 (0.8-1.8); Alk Phos 90 U/L (50-136); Anion Gap 8 mmol/L (6-16); Aspartate Aminotrans (AST/SGOT 18 U/L (12-37); Bilirubin, Total 0.6 mg/dL (0.1-1.0); Blood Urea Nitrogen 11 mg/dL (8-24); Bun/Creatinine Ratio 11.2 (12.0-20.0); CO2, Blood 22 mmol/L (21-32); Calcium, Blood 8.8 mg/dL (8.5-10.1); Chloride, Blood 107 mmol/L (98-108); Creatinine, Blood 0.99 mg/dL (0.60-1.20); Globulin, Blood 4.3 g/dL (2.2-4.0); Glomerular Filtration Rate >60 (60-); Glucose, Blood 210 mg/dL (70-99); Potassium, Blood 3.7 mmol/L (3.5-5.5); Sodium, Blood 137 mmol/L (136-145); Total Protein, Blood 7.1 g/dL (6.4-8.2); Troponin I <0.015 ng/mL (0.000-0.040)
== END 2020-12-26 17:40 | disposition home or self-care (01) ==
LOC: ER 12:05
PROVIDERS: Physician Assistant
DX: G43.909 Migraine, unspecified, not intractable, without status migrainosus (principal); I10 Essential (primary) hypertension; E11.9 Type 2 diabetes mellitus without complications; E78.5 Hyperlipidemia, unspecified; Z79.899 Other long term (current) drug therapy; Z79.84 Long term (current) use of oral hypoglycemic drugs; Z79.82 Long term (current) use of aspirin; Z87.891 Personal history of nicotine dependence
CPT/HCPCS: 36415; 80053; 81000; 84484; 85025; 93005; 93010; 96361; 96374; 96375; 99284-25; A9270; J0360; J0780; J1200; J1885; J7030

== ENCOUNTER 2021-01-11 14:15 | Emergency (ER) | payer OTHER ==
[~2021-01-11] VITALS: Ht 182.9 cm; Wt 107.0 kg
[2021-01-11 14:57] LABS: BASOPHILS ABSOLUTE AUTO 0.05 K/mm3 (0.00-0.23); BASOPHILS PERCENT AUTO 1 % (0-2); EOSINOPHILS ABSOLUTE AUTO 0.05 K/mm3 (0.00-0.68); EOSINOPHILS PERCENT AUTO 1 % (0-6); Hemoglobin 17.3 g/dL (13.5-17.5); IMMATURE GRAN PERCENT AUTO 0 % (0-1); LYMPHOCYTES ABSOLUTE AUTO 2.05 K/mm3 (0.84-5.20); LYMPHOCYTES PERCENT AUTO 35 % (21-46); MONOCYTES ABSOLUTE AUTO 0.44 K/mm3 (0.16-1.47); MONOCYTES PERCENT AUTO 8 % (4-13); Mean Corpuscular HGB 27.5 pg (26.0-34.0); Mean Corpuscular HGB Conc 33.9 g/dL (31.5-36.5); Mean Corpuscular Volume 81 fL (80-100); Mean Platelet Volume 10.3 fL (9.1-12.4); NEUTROPHILS ABSOLUTE AUTO 3.26 K/mm3 (1.96-9.15); NEUTROPHILS PERCENT AUTO 56 % (41-73); Platelet Count 280 K/mm3 (150-400); RDW Coefficient Variation 13.7 % (11.7-14.2); RDW Standard Deviation 40.5 fL (35.1-46.3); White Blood Cell Count 5.85 K/mm3 (4.00-11.30)
[2021-01-11 15:33] LABS: Alanine Aminotransfer (ALT/SGP 24 U/L (12-78); Albumin, Blood 2.9 g/dL (3.4-5.0); Albumin/Globulin Ratio 0.7 (0.8-1.8); Alk Phos 105 U/L (50-136); Anion Gap 7 mmol/L (6-16); Aspartate Aminotrans (AST/SGOT 19 U/L (12-37); Bilirubin, Total 0.3 mg/dL (0.1-1.0); Blood Urea Nitrogen 19 mg/dL (8-24); Bun/Creatinine Ratio 18.1 (12.0-20.0); CO2, Blood 23 mmol/L (21-32); Calcium, Blood 8.6 mg/dL (8.5-10.1); Chloride, Blood 106 mmol/L (98-108); Creatinine, Blood 1.05 mg/dL (0.60-1.20); Globulin, Blood 4.2 g/dL (2.2-4.0); Glomerular Filtration Rate >60 (60-); Glucose, Blood 391 mg/dL (70-99); Potassium, Blood 3.9 mmol/L (3.5-5.5); Sodium, Blood 136 mmol/L (136-145); Total Protein, Blood 7.1 g/dL (6.4-8.2); Troponin I <0.015 ng/mL (0.000-0.040)
== END 2021-01-11 15:38 | disposition left against medical advice (07) ==
LOC: ER 14:15
PROVIDERS: Physician Assistant
DX: R06.02 Shortness of breath (principal); Z53.21 Procedure and treatment not carried out due to patient leaving prior to being seen by health care provider; Z79.4 Long term (current) use of insulin; Z79.899 Other long term (current) drug therapy
CPT/HCPCS: 71046; 80053; 84484; 85025; 93005; 93010; 99283-25

== ENCOUNTER 2021-01-11 22:54 | Emergency (ER) | payer OTHER ==
[~2021-01-11] VITALS: Ht 185.4 cm; Wt 107.0 kg
[2021-01-11 23:14] LABS: BASOPHILS ABSOLUTE AUTO 0.05 K/mm3 (0.00-0.23); BASOPHILS PERCENT AUTO 1 % (0-2); EOSINOPHILS ABSOLUTE AUTO 0.09 K/mm3 (0.00-0.68); EOSINOPHILS PERCENT AUTO 1 % (0-6); Hematocrit 45.6 % (37.0-53.0); Hemoglobin 15.6 g/dL (13.5-17.5); IMMATURE GRAN ABSOLUTE AUTO 0.01 K/mm3 (0.00-0.10); IMMATURE GRAN PERCENT AUTO 0 % (0-1); LYMPHOCYTES PERCENT AUTO 48 % (21-46); MONOCYTES ABSOLUTE AUTO 0.46 K/mm3 (0.16-1.47); MONOCYTES PERCENT AUTO 7 % (4-13); Mean Corpuscular HGB 27.7 pg (26.0-34.0); Mean Corpuscular HGB Conc 34.2 g/dL (31.5-36.5); Mean Corpuscular Volume 81 fL (80-100); NEUTROPHILS ABSOLUTE AUTO 2.67 K/mm3 (1.96-9.15); NEUTROPHILS PERCENT AUTO 43 % (41-73); Platelet Count 226 K/mm3 (150-400); RDW Coefficient Variation 13.9 % (11.7-14.2); RDW Standard Deviation 40.4 fL (35.1-46.3); Red Blood Cell Count 5.63 M/mm3 (4.30-5.90); White Blood Cell Count 6.28 K/mm3 (4.00-11.30)
[2021-01-11 23:37] LABS: Alanine Aminotransfer (ALT/SGP 22 U/L (12-78); Albumin, Blood 2.4 g/dL (3.4-5.0); Albumin/Globulin Ratio 0.6 (0.8-1.8); Alk Phos 89 U/L (50-136); Anion Gap 7 mmol/L (6-16); Aspartate Aminotrans (AST/SGOT 20 U/L (12-37); Bilirubin, Total 0.4 mg/dL (0.1-1.0); Blood Urea Nitrogen 19 mg/dL (8-24); Bun/Creatinine Ratio 19.1 (12.0-20.0); CO2, Blood 24 mmol/L (21-32); Calcium, Blood 7.8 mg/dL (8.5-10.1); Chloride, Blood 108 mmol/L (98-108); Creatinine, Blood 0.99 mg/dL (0.60-1.20); Globulin, Blood 3.7 g/dL (2.2-4.0); Glomerular Filtration Rate >60 (60-); Glucose, Blood 276 mg/dL (70-99); Potassium, Blood 3.9 mmol/L (3.5-5.5); Sodium, Blood 139 mmol/L (136-145); Total Protein, Blood 6.1 g/dL (6.4-8.2); Troponin I <0.015 ng/mL (0.000-0.040)
== END 2021-01-12 02:48 | disposition left against medical advice (07) ==
LOC: ER 22:54
PROVIDERS: Emergency Medicine
DX: R07.9 Chest pain, unspecified (principal); R51.9 Headache, unspecified; R53.1 Weakness; R11.0 Nausea; R10.9 Unspecified abdominal pain; I10 Essential (primary) hypertension; E11.9 Type 2 diabetes mellitus without complications; F17.290 Nicotine dependence, other tobacco product, uncomplicated; Z79.4 Long term (current) use of insulin; Z79.899 Other long term (current) drug therapy
CPT/HCPCS: 70450; 71045; 80053; 82550; 83690; 83735; 83880; 84484; 85025; 93005; 93010; 96374; 99284-25; A9270; J2765

== ENCOUNTER 2021-01-13 22:03 | Emergency (ER) | payer OTHER ==
[~2021-01-13] VITALS: Ht 185.4 cm; Wt 109.8 kg
[2021-01-13 23:15] LABS: Calcium, Ionized (POC) 1.18 mmol/L (1.10-1.46); Chloride (POC) 105 mmol/L (98-108); Glucose (ISTAT POC) 373 mg/dL (70-99); Sodium (POC) 140 mmol/L (135-148); Total CO2 (POC) 21 mmol/L (21-32)
== END 2021-01-14 00:14 | disposition home or self-care (01) ==
LOC: ER 22:03
PROVIDERS: Emergency Medicine
DX: E11.65 Type 2 diabetes mellitus with hyperglycemia (principal); I10 Essential (primary) hypertension; Z79.82 Long term (current) use of aspirin; Z79.84 Long term (current) use of oral hypoglycemic drugs; Z79.899 Other long term (current) drug therapy; Z87.891 Personal history of nicotine dependence
CPT/HCPCS: 80047; 85014; 99285; J1815

== ENCOUNTER 2021-03-03 06:18 | Emergency (ER) | payer OTHER ==
[~2021-03-03] VITALS: Ht 170.2 cm; Wt 113.4 kg
[2021-03-03 08:29] LABS: BASOPHILS ABSOLUTE AUTO 0.04 K/mm3 (0.00-0.23); BASOPHILS PERCENT AUTO 0 % (0-2); EOSINOPHILS PERCENT AUTO 0 % (0-6); Hemoglobin 18.8 g/dL (13.5-17.5); IMMATURE GRAN ABSOLUTE AUTO 0.02 K/mm3 (0.00-0.10); IMMATURE GRAN PERCENT AUTO 0 % (0-1); LYMPHOCYTES PERCENT AUTO 18 % (21-46); MONOCYTES ABSOLUTE AUTO 0.44 K/mm3 (0.16-1.47); MONOCYTES PERCENT AUTO 5 % (4-13); Mean Corpuscular HGB Conc 33.5 g/dL (31.5-36.5); Mean Corpuscular Volume 81 fL (80-100); Mean Platelet Volume 9.9 fL (9.1-12.4); NEUTROPHILS ABSOLUTE AUTO 6.97 K/mm3 (1.96-9.15); NEUTROPHILS PERCENT AUTO 77 % (41-73); Platelet Count 281 K/mm3 (150-400); RDW Coefficient Variation 13.1 % (11.7-14.2); RDW Standard Deviation 37.9 fL (35.1-46.3); Red Blood Cell Count 6.97 M/mm3 (4.30-5.90); White Blood Cell Count 9.07 K/mm3 (4.00-11.30)
[2021-03-03 08:30] LABS: Hematocrit 56.1 % (37.0-53.0)
[2021-03-03 08:56] LABS: Alanine Aminotransfer (ALT/SGP 33 U/L (12-78); Albumin, Blood 3.3 g/dL (3.4-5.0); Albumin/Globulin Ratio 0.8 (0.8-1.8); Alk Phos 101 U/L (50-136); Anion Gap 11 mmol/L (6-16); Aspartate Aminotrans (AST/SGOT 15 U/L (12-37); Bilirubin, Total 0.7 mg/dL (0.1-1.0); Blood Urea Nitrogen 14 mg/dL (8-24); Bun/Creatinine Ratio 12.5 (12.0-20.0); CO2, Blood 20 mmol/L (21-32); Chloride, Blood 103 mmol/L (98-108); Creatinine, Blood 1.12 mg/dL (0.60-1.20); Globulin, Blood 4.4 g/dL (2.2-4.0); Glomerular Filtration Rate >60 (60-); Glucose, Blood 374 mg/dL (70-99); Potassium, Blood 3.9 mmol/L (3.5-5.5); Sodium, Blood 134 mmol/L (136-145); Total Protein, Blood 7.7 g/dL (6.4-8.2); Troponin I <0.015 ng/mL (0.000-0.040)
== END 2021-03-03 09:44 | disposition home or self-care (01) ==
LOC: ER 06:18
PROVIDERS: Emergency Medicine
DX: I10 Essential (primary) hypertension (principal); E11.9 Type 2 diabetes mellitus without complications; R07.9 Chest pain, unspecified; Z87.891 Personal history of nicotine dependence; Z79.82 Long term (current) use of aspirin; Z79.899 Other long term (current) drug therapy; Z79.4 Long term (current) use of insulin
CPT/HCPCS: 36415; 80053; 83690; 84484; 85025; 93005; 93010; 99284-25

== ENCOUNTER 2021-05-25 18:21 | Emergency (ER) | payer OTHER ==
[~2021-05-25] VITALS: Ht 188 cm; Wt 108.9 kg
[2021-05-25] MEDS ORDERED: ONDA4 (18:54)
[2021-05-25] MEDS ORDERED: NEURAPTINE30 GM (18:54)
[2021-05-25] MEDS ORDERED: ATOR10 (18:55)
[2021-05-25] MEDS ORDERED: TEMA7.5 (18:55)
[2021-05-25 19:12] LABS: BASOPHILS ABSOLUTE AUTO 0.04 K/mm3 (0.00-0.23); BASOPHILS PERCENT AUTO 1 % (0-2); EOSINOPHILS ABSOLUTE AUTO 0.08 K/mm3 (0.00-0.68); EOSINOPHILS PERCENT AUTO 1 % (0-6); Hemoglobin 18.8 g/dL (13.5-17.5); IMMATURE GRAN ABSOLUTE AUTO 0.02 K/mm3 (0.00-0.10); IMMATURE GRAN PERCENT AUTO 0 % (0-1); LYMPHOCYTES ABSOLUTE AUTO 2.95 K/mm3 (0.84-5.20); LYMPHOCYTES PERCENT AUTO 40 % (21-46); MONOCYTES PERCENT AUTO 8 % (4-13); Mean Corpuscular HGB 27.9 pg (26.0-34.0); Mean Corpuscular HGB Conc 34.1 g/dL (31.5-36.5); Mean Corpuscular Volume 82 fL (80-100); Mean Platelet Volume 10.2 fL (9.1-12.4); NEUTROPHILS PERCENT AUTO 50 % (41-73); Platelet Count 269 K/mm3 (150-400); RDW Standard Deviation 40.2 fL (35.1-46.3); Red Blood Cell Count 6.74 M/mm3 (4.30-5.90); White Blood Cell Count 7.39 K/mm3 (4.00-11.30)
[2021-05-25 19:13] LABS: Hematocrit 55.2 % (37.0-53.0)
[2021-05-25 19:52] LABS: Alanine Aminotransfer (ALT/SGP 31 U/L (12-78); Albumin, Blood 2.9 g/dL (3.4-5.0); Albumin/Globulin Ratio 0.6 (0.8-1.8); Alk Phos 105 U/L (50-136); Anion Gap 8 mmol/L (6-16); Aspartate Aminotrans (AST/SGOT 19 U/L (12-37); Bilirubin, Total 0.5 mg/dL (0.1-1.0); Blood Urea Nitrogen 10 mg/dL (8-24); Bun/Creatinine Ratio 9.3 (12.0-20.0); CO2, Blood 23 mmol/L (21-32); Calcium, Blood 9.4 mg/dL (8.5-10.1); Chloride, Blood 106 mmol/L (98-108); Creatinine, Blood 1.08 mg/dL (0.60-1.20); Globulin, Blood 4.5 g/dL (2.2-4.0); Glomerular Filtration Rate >60 (60-); Glucose, Blood 286 mg/dL (70-99); Potassium, Blood 3.9 mmol/L (3.5-5.5); Sodium, Blood 137 mmol/L (136-145); Total Protein, Blood 7.4 g/dL (6.4-8.2); Troponin I <0.015 ng/mL (0.000-0.040)
[2021-05-25 21:42] LABS: Source, Urine Clean Catch
[2021-05-25 21:46] LABS: Bilirubin, Urine Neg (Neg); Blood, Urine 1+ (Neg); Glucose Qualitative, Urine 4+ (Neg); Ketones, Urine 1+ (Neg); Leukocyte Esterase, Urine Neg (Neg); Nitrite, Urine Neg (Neg); Protein, Urine 4+ (Neg); Urobilinogen, Urine NORM (Normal)
[2021-05-25 21:47] LABS: Appearance, Urine Clear (Clear); Color, Urine Yellow (P-Yellow)
[2021-05-25 21:55] LABS: Red Blood Cells, Urine 0-2 /hpf (0-2); White Blood Cells, Urine Rare /hpf (0-5)
[2021-05-25 21:56] LABS: Bacteria Rare /hpf; Squamous Epithelial Cells Rare /hpf (Few)
== END 2021-05-25 22:50 | disposition home or self-care (01) ==
LOC: ER 18:21
PROVIDERS: Emergency Medicine
DX: R51.9 Headache, unspecified (principal); E11.65 Type 2 diabetes mellitus with hyperglycemia; T50.905A Adverse effect of unspecified drugs, medicaments and biological substances, initial encounter; I10 Essential (primary) hypertension; Z79.899 Other long term (current) drug therapy; Z79.4 Long term (current) use of insulin; Z79.82 Long term (current) use of aspirin; Z87.891 Personal history of nicotine dependence
CPT/HCPCS: 80053; 81001; 82947; 84484; 85025; 93005; 93010; 96374; 99284-25; A9270; J1815; J2765; J7120

== ENCOUNTER → 2021-07-05 | Outpatient (CLI) | payer OTHER ==
[~2021-07-05] MED LIST changes: +ATOR10; +NEURAPTINE30 GM; +ONDA4; +TEMA7.5
[2021-07-05 14:02] LABS: BASOPHILS ABSOLUTE AUTO 0.05 K/mm3 (0.00-0.23); BASOPHILS PERCENT AUTO 1 % (0-2); EOSINOPHILS ABSOLUTE AUTO 0.02 K/mm3 (0.00-0.68); EOSINOPHILS PERCENT AUTO 0 % (0-6); Hematocrit 49.8 % (37.0-53.0); Hemoglobin 16.8 g/dL (13.5-17.5); IMMATURE GRAN ABSOLUTE AUTO 0.01 K/mm3 (0.00-0.10); IMMATURE GRAN PERCENT AUTO 0 % (0-1); LYMPHOCYTES ABSOLUTE AUTO 1.28 K/mm3 (0.84-5.20); LYMPHOCYTES PERCENT AUTO 13 % (21-46); MONOCYTES ABSOLUTE AUTO 0.66 K/mm3 (0.16-1.47); MONOCYTES PERCENT AUTO 7 % (4-13); Mean Corpuscular HGB 27.6 pg (26.0-34.0); Mean Corpuscular HGB Conc 33.7 g/dL (31.5-36.5); Mean Corpuscular Volume 82 fL (80-100); Mean Platelet Volume 9.8 fL (9.1-12.4); NEUTROPHILS ABSOLUTE AUTO 7.98 K/mm3 (1.96-9.15); NEUTROPHILS PERCENT AUTO 80 % (41-73); Platelet Count 258 K/mm3 (150-400); RDW Coefficient Variation 13.2 % (11.7-14.2); RDW Standard Deviation 38.5 fL (35.1-46.3); Red Blood Cell Count 6.09 M/mm3 (4.30-5.90)
[2021-07-05 14:09] LABS: Anion Gap 13 mmol/L (6-16); Blood Urea Nitrogen 14 mg/dL (8-24); Bun/Creatinine Ratio 11.5 (12.0-20.0); CO2, Blood 23 mmol/L (21-32); Calcium, Blood 9.3 mg/dL (8.5-10.1); Chloride, Blood 101 mmol/L (98-108); Creatinine, Blood 1.22 mg/dL (0.60-1.20); Glomerular Filtration Rate >60 (60-); Glucose, Blood 300 mg/dL (70-99); Potassium, Blood 4.1 mmol/L (3.5-5.5); Sodium, Blood 137 mmol/L (136-145)
== END | disposition home or self-care (01) ==
LOC: LAB SHORT 13:59 → LAB 13:59
PROVIDERS: Physician Assistant Surgical
DX: R05.9 Cough, unspecified (principal)
CPT/HCPCS: 80048; 85025

== ENCOUNTER → 2021-08-21 | Outpatient (CLI) | payer OTHER ==
[2021-08-21 18:49] LABS: BASOPHILS ABSOLUTE AUTO 0.03 K/mm3 (0.00-0.23); BASOPHILS PERCENT AUTO 1 % (0-2); EOSINOPHILS PERCENT AUTO 2 % (0-6); Hematocrit 48.5 % (37.0-53.0); Hemoglobin 15.5 g/dL (13.5-17.5); IMMATURE GRAN ABSOLUTE AUTO 0.01 K/mm3 (0.00-0.10); IMMATURE GRAN PERCENT AUTO 0 % (0-1); LYMPHOCYTES ABSOLUTE AUTO 2.14 K/mm3 (0.84-5.20); LYMPHOCYTES PERCENT AUTO 39 % (21-46); MONOCYTES ABSOLUTE AUTO 0.44 K/mm3 (0.16-1.47); MONOCYTES PERCENT AUTO 8 % (4-13); Mean Corpuscular HGB 25.7 pg (26.0-34.0); Mean Corpuscular Volume 80 fL (80-100); Mean Platelet Volume 10.5 fL (9.1-12.4); NEUTROPHILS ABSOLUTE AUTO 2.79 K/mm3 (1.96-9.15); NEUTROPHILS PERCENT AUTO 51 % (41-73); Platelet Count 259 K/mm3 (150-400); RDW Coefficient Variation 13.1 % (11.7-14.2); RDW Standard Deviation 37.6 fL (35.1-46.3); Red Blood Cell Count 6.03 M/mm3 (4.30-5.90); White Blood Cell Count 5.51 K/mm3 (4.00-11.30)
[2021-08-21 19:04] LABS: Alanine Aminotransfer (ALT/SGP 30 U/L (12-78); Albumin/Globulin Ratio 0.8 (0.8-1.8); Alk Phos 103 U/L (50-136); Anion Gap 10 mmol/L (6-16); Aspartate Aminotrans (AST/SGOT 15 U/L (12-37); Bilirubin, Total 0.3 mg/dL (0.1-1.0); Blood Urea Nitrogen 14 mg/dL (8-24); Bun/Creatinine Ratio 15.7 (12.0-20.0); CO2, Blood 23 mmol/L (21-32); CPK Creatine Kinase 53 U/L (39-308); Calcium, Blood 8.8 mg/dL (8.5-10.1); Chloride, Blood 103 mmol/L (98-108); Creatinine, Blood 0.89 mg/dL (0.60-1.20); Globulin, Blood 3.7 g/dL (2.2-4.0); Glomerular Filtration Rate >60 (60-); Glucose, Blood 399 mg/dL (70-99); Phosphorus, Blood 2.8 mg/dL (2.5-4.9); Potassium, Blood 4.5 mmol/L (3.5-5.5); Sodium, Blood 136 mmol/L (136-145); Total Protein, Blood 6.7 g/dL (6.4-8.2)
== END ==
LOC: LAB SHORT 16:36
PROVIDERS: Internal Medicine Hematology & Oncology
DX: D45 Polycythemia vera (principal); I10 Essential (primary) hypertension; R29.898 Other symptoms and signs involving the musculoskeletal system; R51.9 Headache, unspecified
CPT/HCPCS: 80053; 82550; 84100; 85025; 85651; 86430

== ENCOUNTER 2021-12-27 14:53 | Emergency (ER) | payer OTHER ==
[~2021-12-27] VITALS: Ht 185.4 cm; Wt 104.3 kg
[2021-12-27 15:19] LABS: BASOPHILS ABSOLUTE AUTO 0.04 K/mm3 (0.00-0.23); BASOPHILS PERCENT AUTO 0 % (0-2); EOSINOPHILS ABSOLUTE AUTO 0.03 K/mm3 (0.00-0.68); EOSINOPHILS PERCENT AUTO 0 % (0-6); Hematocrit 53.3 % (37.0-53.0); Hemoglobin 17.2 g/dL (13.5-17.5); IMMATURE GRAN ABSOLUTE AUTO 0.03 K/mm3 (0.00-0.10); IMMATURE GRAN PERCENT AUTO 0 % (0-1); LYMPHOCYTES ABSOLUTE AUTO 1.22 K/mm3 (0.84-5.20); LYMPHOCYTES PERCENT AUTO 9 % (21-46); MONOCYTES ABSOLUTE AUTO 0.55 K/mm3 (0.16-1.47); MONOCYTES PERCENT AUTO 4 % (4-13); Mean Corpuscular HGB 24.2 pg (26.0-34.0); Mean Corpuscular HGB Conc 32.3 g/dL (31.5-36.5); Mean Corpuscular Volume 75 fL (80-100); Mean Platelet Volume 10.1 fL (9.1-12.4); NEUTROPHILS ABSOLUTE AUTO 11.41 K/mm3 (1.96-9.15); NEUTROPHILS PERCENT AUTO 86 % (41-73); Platelet Count 293 K/mm3 (150-400); RDW Standard Deviation 42.3 fL (35.1-46.3); Red Blood Cell Count 7.11 M/mm3 (4.30-5.90); White Blood Cell Count 13.28 K/mm3 (4.00-11.30)
[2021-12-27 15:34] LABS: Albumin/Globulin Ratio 0.6 (0.8-1.8); Bilirubin, Total 0.8 mg/dL (0.1-1.0); Bun/Creatinine Ratio 17.3 (12.0-20.0); Creatinine, Blood 0.92 mg/dL (0.60-1.20); Globulin, Blood 4.7 g/dL (2.2-4.0); Potassium, Blood 4.8 mmol/L (3.5-5.5); Total Protein, Blood 7.7 g/dL (6.4-8.2)
[2021-12-27 16:43] LABS: Influenza A, PCR NEGATIVE (NEGATIVE); Influenza B, PCR NEGATIVE (NEGATIVE); Resp Syncytial Virus, PCR NEGATIVE (NEGATIVE); SARS-Cov-2 (COVID-19) PCR, MMC NEGATIVE (NEGATIVE)
[2021-12-27 17:08] LABS: Magnesium, Blood 1.9 mg/dL (1.6-2.4)
[2021-12-27 17:10] LABS: Thyroid Stimulating Hormone 0.882 uIU/mL (0.360-4.800)
[2021-12-27 17:18] LABS: Source, Urine Clean Catch
[2021-12-27 17:31] LABS: Bilirubin, Urine Neg (Neg); Blood, Urine 1+ (Neg); Color, Urine Yellow (P-Yellow); Glucose Qualitative, Urine 4+ (Neg); Ketones, Urine 1+ (Neg); Leukocyte Esterase, Urine Neg (Neg); Nitrite, Urine Neg (Neg); Protein, Urine 4+ (Neg); Urobilinogen, Urine NORM (Normal)
[2021-12-27 18:21] LABS: Appearance, Urine Hazy (Clear); Granular Casts 0-2 /lpf (0); Hyaline Casts 0-2 /lpf (0-2); Mucus Light (0-Heavy)
[2021-12-27 18:22] LABS: Bacteria Mod /hpf; Squamous Epithelial Cells Rare /hpf (Few); White Blood Cells, Urine 0-2 /hpf (0-5)
[2021-12-27 18:23] LABS: Amorphous Light (0-Heavy); Transitional Epithelial Cells Rare /hpf (0-Rare)
== END 2021-12-27 17:38 | disposition home or self-care (01) ==
LOC: ER 14:53
PROVIDERS: Emergency Medicine; Physician Assistant
DX: R53.1 Weakness (principal); R52 Pain, unspecified; I10 Essential (primary) hypertension; E11.9 Type 2 diabetes mellitus without complications; F17.290 Nicotine dependence, other tobacco product, uncomplicated; Z20.822 Contact with and (suspected) exposure to COVID-19
CPT/HCPCS: 0241U; 36415; 71045; 80053; 81001; 82947; 83690; 83735; 84443; 85025; J0780; J1885; J2405; J7030

== ENCOUNTER 2022-01-22 12:36 | Emergency (ER) | payer OTHER ==
[~2022-01-22] VITALS: Ht 182.9 cm; Wt 104.3 kg
[2022-01-22 14:01] LABS: Base Excess Venous 0.5 mmol/L; Bicarbonate Venous 24.8 mmol/L (24.0-30.0); PCO2 Venous 39.6 mmHg (38-42); PO2 Venous 80.7 mmHg (38-42); pH Blood Venous 7.41 (7.34-7.37)
[2022-01-22 14:03] LABS: BASOPHILS ABSOLUTE AUTO 0.04 K/mm3 (0.00-0.23); BASOPHILS PERCENT AUTO 1 % (0-2); EOSINOPHILS ABSOLUTE AUTO 0.04 K/mm3 (0.00-0.68); EOSINOPHILS PERCENT AUTO 1 % (0-6); Hematocrit 54.3 % (37.0-53.0); Hemoglobin 17.4 g/dL (13.5-17.5); IMMATURE GRAN ABSOLUTE AUTO 0.02 K/mm3 (0.00-0.10); IMMATURE GRAN PERCENT AUTO 0 % (0-1); LYMPHOCYTES ABSOLUTE AUTO 1.93 K/mm3 (0.84-5.20); LYMPHOCYTES PERCENT AUTO 25 % (21-46); MONOCYTES ABSOLUTE AUTO 0.59 K/mm3 (0.16-1.47); MONOCYTES PERCENT AUTO 8 % (4-13); Mean Corpuscular HGB 24.2 pg (26.0-34.0); Mean Corpuscular Volume 76 fL (80-100); Mean Platelet Volume 9.9 fL (9.1-12.4); NEUTROPHILS ABSOLUTE AUTO 5.13 K/mm3 (1.96-9.15); NEUTROPHILS PERCENT AUTO 66 % (41-73); Platelet Count 238 K/mm3 (150-400); RDW Coefficient Variation 17.3 % (11.7-14.2); RDW Standard Deviation 42.1 fL (35.1-46.3); Red Blood Cell Count 7.19 M/mm3 (4.30-5.90); White Blood Cell Count 7.75 K/mm3 (4.00-11.30)
[2022-01-22 14:21] LABS: Albumin, Blood 3.2 g/dL (3.4-5.0); Albumin/Globulin Ratio 0.7 (0.8-1.8); Bilirubin, Total 0.7 mg/dL (0.1-1.0); Bun/Creatinine Ratio 19.2 (12.0-20.0); Calcium, Blood 9.3 mg/dL (8.5-10.1); Creatinine, Blood 0.99 mg/dL (0.60-1.20); Globulin, Blood 4.7 g/dL (2.2-4.0); Potassium, Blood 4.5 mmol/L (3.5-5.5); Total Protein, Blood 7.9 g/dL (6.4-8.2)
[2022-01-22 17:21] LABS: Source, Urine Clean Catch
[2022-01-22 18:03] LABS: Appearance, Urine Clear (Clear); Bilirubin, Urine Neg (Neg); Blood, Urine 1+ (Neg); Color, Urine Yellow (P-Yellow); Glucose Qualitative, Urine 4+ (Neg); Ketones, Urine Neg (Neg); Leukocyte Esterase, Urine Neg (Neg); Nitrite, Urine Neg (Neg); Protein, Urine 4+ (Neg); Urobilinogen, Urine NORM (Normal)
[2022-01-22 18:18] LABS: Red Blood Cells, Urine 0-2 /hpf (0-2); Squamous Epithelial Cells Few /hpf (Few); White Blood Cells, Urine 0-2 /hpf (0-5)
[2022-01-22 18:19] LABS: Bacteria Rare /hpf
== END 2022-01-22 19:32 | disposition home or self-care (01) ==
LOC: ER 12:36
PROVIDERS: Emergency Medicine; Physician Assistant
DX: E11.65 Type 2 diabetes mellitus with hyperglycemia (principal); R07.9 Chest pain, unspecified; I10 Essential (primary) hypertension; F17.290 Nicotine dependence, other tobacco product, uncomplicated; Z79.4 Long term (current) use of insulin; Z79.899 Other long term (current) drug therapy; Z79.82 Long term (current) use of aspirin
CPT/HCPCS: 36415; 71046; 80053; 81001; 82010; 82803; 82947; 83690; 83880; 84484; 85025; A9270; J1815; J1885; J7030

== ENCOUNTER 2022-02-02 14:02 | Inpatient (IN) | payer OTHER ==
[~2022-02-02] VITALS: Ht 185.4 cm; Wt 104.3 kg
[~2022-02-02 14:02] MED LIST changes: -CATAPRES0.3 MG PO; -LABE100 PO; -LISI20 PO
[2022-02-02 16:02] LABS: Influenza A, PCR NEGATIVE (NEGATIVE); Influenza B, PCR NEGATIVE (NEGATIVE); Resp Syncytial Virus, PCR NEGATIVE (NEGATIVE); SARS-Cov-2 (COVID-19) PCR, MMC NEGATIVE (NEGATIVE)
[2022-02-02 16:04] LABS: C-REACTIVE PROTEIN, EXT RANGE <0.290 mg/dL (0.000-0.300)
[2022-02-02 16:14] LABS: Thyroid Stimulating Hormone 0.921 uIU/mL (0.360-4.800)
[2022-02-02] MEDS ORDERED: LISI20 PO (23:54)
[2022-02-02] MEDS ORDERED: CATAPRES0.3 MG PO (23:56)
[2022-02-02] MEDS ORDERED: LABE100 PO (23:57)
--- NOTE | 2022-02-03 04:49 | NUR ---
SHIFT SUMMARY 41 YR M ADMITTED ON 02/02/22 FOR WEAKNESS AND LOWER LEG NUMBNESS X 3 DAYS. FULL CODE. PT CAME TO THIS UNIT FROM THE ED AT APPROX 0030. THIS NURSE NOTED THAT DURING HIS ASSESSMENT SOME OF THE INFO GIVEN BY PT DIRECTLY CONTRADICTS INFO GIVEN TO MD IN THE ER. PT STATED TO THIS NURSE THAT HE HAS NO ISSUES W/ BM'S AND GOES REGULARLY Q2D. HE WAS ALSO ABLE TO GET OUT OF BED BY HIMSELF AND AMBULATE INDEPENDANTLY TO THE BATHROOM WHERE HE URINATED AND HAD A BM ON THE TOILET AND WAS ABLE TO PUT HIMSELF BACK IN BED. HE STATED TO THIS NURSE THAT HE HAS NO TROUBLE EATING. NO C/O CHEST PAIN, SOB, HEADACHE, OR DIZZINESS. PT INDICATED THAT HE WAS TIRED AND JUST WANTED TO SLEEP. HE SLEPT FOR THE REMAINDER OF THE SHIFT.
--- NOTE | 2022-02-03 08:27 | NUR ---
ROUNDING: PHYSICIAN IN TO EVAL PT AN DISCUSS TREATMENT PLAN. TERAPY AT BEDSIDE TO WORK WITH PATIENT. WILL CONT TO MONITOR.
--- NOTE | 2022-02-03 16:35 | NUR ---
VOIDING: PT STATES THAT HE DOES NOT FEEL LIKE HE HAS TO VOID, ALTHOUGH HE HAS BEEN DRINKING FLUIDS AND HAS NOT VOIDED YET THIS SHIFT. PT UP TO COMMODE WITH 2 ASSIST AND WALKER AND ABLE TO VOID [id number]. PT STATES NO SENSATION WHEN WIPING. MD NOTIFIED OF CHANGE.
--- NOTE | 2022-02-03 17:58 | NUR ---
PT HAS BEEN STABLE THIS SHIFT. NO IMPROVEMENT IN NUMBNESS/TINGLING AND WEAKNESS IN LEGS. PT REPORTS NO SENSATION TO VOID BUT ABLE TO VOID ON COMMODE WITH ENCOURAGEMENT. PT 2 PERSON ASSIST PATRICA CHINCHILLA POORLY. PT WORKED WITH PATIENT TO MOBILIZE. PT REQUIRED NO PAIN MEDICATION THIS SHIFT. TELE NSR. PT PATRICA DIET WELL. BLOOD SUGARS STABLE, TREATED EACH MEAL ORDERED. PT CALLS APPROPRIATELY NEEDED. FAMILY INVOLVED IN PLAN OF CARE.
[2022-02-04 05:44] LABS: BASOPHILS ABSOLUTE AUTO 0.03 K/mm3 (0.00-0.23); BASOPHILS PERCENT AUTO 1 % (0-2); EOSINOPHILS ABSOLUTE AUTO 0.12 K/mm3 (0.00-0.68); EOSINOPHILS PERCENT AUTO 2 % (0-6); Hematocrit 50.2 % (37.0-53.0); Hemoglobin 15.7 g/dL (13.5-17.5); IMMATURE GRAN ABSOLUTE AUTO 0.01 K/mm3 (0.00-0.10); IMMATURE GRAN PERCENT AUTO 0 % (0-1); LYMPHOCYTES PERCENT AUTO 51 % (21-46); MONOCYTES ABSOLUTE AUTO 0.56 K/mm3 (0.16-1.47); MONOCYTES PERCENT AUTO 10 % (4-13); Mean Corpuscular HGB 24.2 pg (26.0-34.0); Mean Corpuscular HGB Conc 31.3 g/dL (31.5-36.5); Mean Corpuscular Volume 77 fL (80-100); Mean Platelet Volume 9.8 fL (9.1-12.4); NEUTROPHILS ABSOLUTE AUTO 1.96 K/mm3 (1.96-9.15); NEUTROPHILS PERCENT AUTO 36 % (41-73); Platelet Count 226 K/mm3 (150-400); RDW Coefficient Variation 17.1 % (11.7-14.2); RDW Standard Deviation 44.2 fL (35.1-46.3); Red Blood Cell Count 6.49 M/mm3 (4.30-5.90); White Blood Cell Count 5.48 K/mm3 (4.00-11.30)
[2022-02-04 06:03] LABS: Albumin, Blood 2.5 g/dL (3.4-5.0); Albumin/Globulin Ratio 0.7 (0.8-1.8); Bilirubin, Total 0.5 mg/dL (0.1-1.0); Bun/Creatinine Ratio 18.9 (12.0-20.0); Calcium, Blood 8.8 mg/dL (8.5-10.1); Creatinine, Blood 1.11 mg/dL (0.60-1.20); Globulin, Blood 3.8 g/dL (2.2-4.0); Potassium, Blood 3.8 mmol/L (3.5-5.5); Total Protein, Blood 6.3 g/dL (6.4-8.2)
--- NOTE | 2022-02-04 07:30 | NUR ---
ASSUMED CARE: PT RESTING QUIETLY AT THIS TIME. NSR AT 81 ON TELE. NO ACUTE NEEDS OR CONCERNS.
--- NOTE | 2022-02-04 09:36 | NUR ---
PT TAKEN TO MRI
--- NOTE | 2022-02-04 11:38 | NUR ---
PT RETURNED FROM MRI AND C/O BACK SPASMS. CALL TO DR VO WHO CAME TO EXAMINE PT AND TRIAL A FEW MEDS TO SEE IF RELIEF CAN HELP IDENTIFY SOURCE. PT AGREEABLE TO THIS AT THIS TIME.
--- NOTE | 2022-02-04 14:31 | NUR ---
DR VO CAME AND RELAYED TO PT AND FAMILY THE MRI RESULTS. CALL TO [facility] TO GET IMAGES PUSHED TO [facility]. DR VO TO CALL [facility] FOR FURTHER RECOMMENDATIONS. PT AND FAMILY AGREEABLE
--- NOTE | 2022-02-04 18:12 | NUR ---
SHIFT SUMMARY: PT HAD MRI THIS MORNING THAT FOUND SOURCE OF SYMPTOMS. DR VO CONTACTED [facility] FOR RECOMMENDATIONS. FAMILY AWARE OF MRI RESULTS. PT WAS GIVEN ONE DOSE OF MUSCLE RELAXER AND A LIDOCAINE PATCH AND REPORTS RELIEF. NO FURTHER NEEDS OR CONCERNS AT THIS TIME.
--- NOTE | 2022-02-05 04:42 | NUR ---
SHIFT SUMMARY 41 YR M ADMITTED ON 02/03/22 FOR BLLL WEAKNESS X 3 DAYS. FULL CODE. PT WAS INFORMED TODAY THAT HE DID INDEED HAVE A STROKE, BUT NOT SURE WHEN. [facility] WILL BE NOTIFIED OF NEW IMAGING RESULTS DONE TODAY. PT HAD NO ACUTE CHANGES THIS SHIFT. HE HAS HAD NO C/O PAIN OR DISCOMFORT AND HAS NOT REQUESTED PAIN MEDS. PT STATED THAT HE IS VERY WEAK AND UNABLE TO STAND ON HIS OWN BUT THIS NURSE HEARD THE TOILET FLUSH IN HIS ROOM WHEN NOONE WAS IN THERE TO ASSIST HIM. HE WAS BACK IN BED WHEN CHECKED ON.
--- NOTE | 2022-02-05 08:00 | NUR ---
pt laying in bed, very sleepy, slow to answer, denies pain, takes po meds without diff, lungs are clear t/o, resp even and unlabored, no cough noted, hrr, tele in place running sr in the 60's, no edema noted, ppp+, cap refill <3sec, vs stable, afebrile, iv site to lac is clear and patent, s.l., btx4, abd flat soft nontender, voids without diff, skin c/w/d, weak lower ext. call light in reach.
--- NOTE | 2022-02-05 13:13 | NUR ---
pt was able to stand and pivot to bsc, unable to dpfe at all, family in room. call light in reach.
--- NOTE | 2022-02-05 18:41 | NUR ---
pt had an echo done today, has been up to the bsc, s.o. in room most of the day, did eat dinner tonight, but has had a poor appetite, no further changes this shift. call light in reach.
--- NOTE | 2022-02-06 06:02 | NUR ---
PT NON-COMPLIANT WITH Q4H TOILETING SCHEDULE. PT REMAINED IN BED ALL SHIFT; DID NOT ALERT STAFF OF ANY NEEDS. HS CBG 187; NO COVERAGE REQUIRED. NO ISSUES THROUGHOUT SHIFT.
--- NOTE | 2022-02-06 12:27 | NUR ---
DIZZINESS AFTER GETTING OOB PT GOT UP OUT OF BED. STOOD AND URINATED IN THE URINAL AND THEN SAT BACK DOWN IN THE CHAIR NEXT TO BED. THIS TOOK TOO PEOPLE PT BALANCE IS NOT GOOD. PT ALSO VERY WEAK WITH LIFTING LEGS. PT C/O DIZZINESS AFTER THIS AND BLURRED VISION. TELE RUNNING NSR IN THE 80S. BP 147/105. PT STATES HIS DIZZINESS AND BLURRED VISION IS THE SAME WHEN LYING IN BED.
--- NOTE | 2022-02-06 14:09 | NUR ---
MOMENT OF CLARITY PT HAD MOMENT OF CLARITY AND SHOWED EMOTION WHEN TALKING ABOUT HIS CAR. A CARE HE REBUILT HIMSELF. WHEN SUBJECT CHANGED, THIS RN COULD SEE THE CHANGE ON THE PTS FACE HE STARTED TO ZONE OUT AND BECOME WITHDRAWN AGAIN. PTS GIRLFRIEND WITNESSED THIS CHANGE WELL AND SAID IT HAS HAPPEND OCCATIONALLY WHERE HIS CLARITY AND EMOTION CHANGES AND THEN FADES AWAY. THIS RN ASKED IF SHE NOTICIES IF IT MOSTLY HAPPENS WHEN HE IS TALKING ABOUT HIS INTERESTS, SUCH CARS. CHANCE REPORTED IT MOSTLY SEEMS RANDOM AT ALL DIFFERENT TIMES.
--- NOTE | 2022-02-06 15:07 | NUR ---
SEDATION PT MORE SEDATED THIS AFTERNOON. PT UNABLE TO REMEMBER LUNCH OR EARLIER EVENTS OF THE DAY. PT GIRLFRIEND CHANCE STATED THAT THE PT BECAME EMOTIONAL AND WAS CRYING PRIOR TO THIS EVENT. BS [address] VO NOTIFIED.
[2022-02-06 16:31] LABS: CPK Creatine Kinase 22 U/L (39-308)
[2022-02-06 16:43] LABS: Creatine Kinase MB <1.0 ng/mL (0.0-3.6); Creatine Kinase MB Index Unable to Calculate (0.0-4.0)
--- NOTE | 2022-02-06 18:24 | NUR ---
SHIFT SUMMARY PT VERY FLAT & WITHDRAWN THIS SHIFT. PT DOES HAVE MOMENTS OF INCREASED CLARITY AND ALERTNESS OCCATIONALLY. THIS RN HAS NOTICED THAT IT SEEMS TO BE WHEN THE PT IS TALKING ABOUT SOMETHING PRIOR TO CURRENT EVENTS. ONCE THE CONVO IS TRANSITIONED TO THE HOSPITAL STAY THE PT GETS A BLANK STARE AND GIVES MINIMAL RESPONSES TO QUESTIONS. DR. VO NOTIFIED OF THIS FINDINGS. PT DID GET OUT OF BED TODAY WITH 2P ASSIST TO SIT IN THE CHAIR FOR LUNCH. PT WAS ABLE TO ASSIST WITH STANDING, BUT HAD VERY POOR BALANCE AND FLOPPED INTO THE CHAIR. OT/PT WORKING WITH THE PT WELL. PT FORGETFUL AND STATES HE HAS NO RECOLECTION OF EVENTS FROM LUNCH AND EARLIER TODAY. DR. VO AWARE. NO OTHER ACUTE CHANGES IN ASSESSMENT AT THIS TIME. VS REVIEWED. PT GIRLFRIEND IN ROOM. CALL LIGHT IN REACH.
--- NOTE | 2022-02-07 05:56 | NUR ---
PT CONTINUES TO HAVE PROGRESSIVE WEAKNESS AND FORGETFULLNESS. PIV ACCESS WAS LOST, AND PATIENT CONTINUED TO REVERT BACK TO HIS RIGHT HAND WHERE THE IV HAD PREVIOUSLY BEEN, STATING "WHERE'D THE SYRINGE THING GO?", DESPITE NUMEROUS ATTEMPTS TO REMIND PATIENT OF THE EVENT. WEAKNESS IS MUCH MORE PREVELANT ON THE PATIENT'S LEFT SIDE. PT REFUSED ATTEMPTS TO GET UP THROUGHOUT THE NIGHT IN ORDER TO STIMULATE HIS BLADDER. PER DAY SHIFT RN, PT REQUIRED INTENSE COAXING TO VOID. PT IS VERY PLEASENT WHEN COGNITION CLEARS (WHICH WAXES AND WANES), BUT VERBALIZATION REMAINS SLOW. NEW IV ACCESS WAS OBTIANED. NO ISSUES THROUGHOUT SHIFT.
[2022-02-07 08:11] LABS: HIV AB/P24 AG SCREEN Non Reactive (Non Reactive)
--- NOTE | 2022-02-07 10:54 | NUR ---
MR LANDIS IS ORIENTATED TO SELF, TO HOSPITAL. NOT TO MONTH OR YEAR. HE HAS POOR SHORT TERM MEMORY. HIS GIRLFRIEND CHANCE SAID HE HAS GOOD SKILLED NURSING MEMORY. PUPILS UNEQUAL, BOTH RESPONSIVE. CHANCE SAID THIS IS NOT A NEW FINDING, FROM PRIOR TO HIS CVA. SLOW SPEACH. C/O BLURRED VISION, SEEING SHADES AND DOUBLE VISION SINCE HIS CVA. VERY POOR SENSATION ALL OVER. HE CAN BARELY FEEL ME TOUCH HIS ARMS, DOESN'T FEEL ME TOUCH HIS LEGS, DIDN'T FEEL THE INSULIN INJECTIONS. HE DID FEEL ME TOUCH HIS HIP. 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 UNABLE TO WIGGLE HIS TOES. STIFF ANKLES L>R. WEAKER ON HIS RIGHT LEG THAN LEFT. ABLE TO STAND TO TRANSFER WITH GAIT BELT, WALKER, 2 PERSON ASSIST AND INSTRUCTING THROUGH THE PROCESS. NO BM X 1 WEEK, +BM AFTER BISOCODYL SUPPOSITORY. C/O LOWER BACK PAIN, LIDOCAINE PATCH APPLIED. PT SAT OUT IN CHAIR THIS AM AFTER BSC, EASILY TIRES. VOIDED X 2 SO FAR THIS SHIFT, DID NEED TO PRESS ON HIS LOWER ABDOMEN TO BE ABLE TO URINATE. NO INCONTINENCE. BED LOW, CALL LIGHT IN REACH.
--- NOTE | 2022-02-07 18:07 | NUR ---
MR LANDIS HAS POOR SHORT TERM MEMORY, ORIENTATED TO SELF, FAMILY, THAT HE IS IN HOSPITAL. HIS GIRLFRIEND HAS BEEN WITH HIM MOST OF THE DAY. SHE BROUGHT HIS DOG IN AND HE PERKED UP CONSIDERABLY WHEN DONNA ARRIVED. HE WAS SPEAKING IN FULL SENTENCES, CLEAR SPEACH AT THAT TIME, COMPARED WITH THE SLOW DELAYED SPEACH BEFORE DONNA'S ARRIVAL. MR LANDIS HAS BEEN UP TO THE BEDSIDE COMMODE X 3 FOR BM AND VOID, REQUIRING 2 PERSON ASSIST, BUT ABLE TO PARTICIPATE WITH A SHUFFLE WITH GAIT BELT AND WALKER. HE'S ABLE TO ASSIST WITH LIFTING HIS LEGS INTO BED. LEFT LEG WEAKER THAN RIGHT (CORRECTION TO EARLIER NOTE WHEN I MIXED UP L & R). PT AND OT WORKED WITH MR LANDIS TODAY. SEE PRIOR NOTE FOR VISION PROBLEMS. BED LOW, CALL LIGHT IN REACH.
[2022-02-07 19:06] LABS: ANA DIRECT Negative (Negative); ANTI-DNA (DS) AB QN <1 IU/mL (0-9); RNP ANTIBODIES 0.5 AI (0.0-0.9); SJOGREN'S ANTI-SS-A <0.2 AI (0.0-0.9); SJOGREN'S ANTI-SS-B <0.2 AI (0.0-0.9); SMITH ANTIBODIES <0.2 AI (0.0-0.9)
--- NOTE | 2022-02-07 23:05 | NUR ---
2047 PT LYING IN BED, DENIES ANY DISCOMFORT AT THIS TIME. TELE NSR W/BBB. SCD'S ON. BS 200. NEURA, PT DOES NOT MOVE LE'S WHEN ASKED BUT CAN INTERMITTENTLY WHEN UP DURING DAY PER DAY RN. UE'S WEAK WITH L WEAKER THAN RIGHT. PT'S SPEECH IS CLEAR BUT HE IS SLOW TO RESPOND AND SPEAKS VERY SLOWLY. PT DENIES NEED FOR ANYTHING ELSE AT THIS TIME. NO APPARENT SIGNS OF DISTRESS. CALL LIGHT IS IN REACH.
--- NOTE | 2022-02-07 23:58 | NUR ---
PT LYING IN BED, EYES CLOSED, APPEARS TO BE RESTING. BREATHING IS EVEN, UNLABORED. NO APPARENT SIGNS OF DISTRESS. CALL LIGHT IS IN REACH.
--- NOTE | 2022-02-08 01:59 | NUR ---
PT LYING IN BED, EYES CLOSED, APPEARS TO BE RESTING. BREATHING IS EVEN, UNLABORED. NO APPARENT SIGNS OF DISTRESS. CALL LIGHT IS IN REACH.
--- NOTE | 2022-02-08 03:33 | NUR ---
PT LYING IN BED, EYES CLOSED, APPEARS TO BE RESTING. BREATHING IS EVEN, UNLABORED. NO APPARENT SIGNS OF DISTRESS. CALL LIGHT IS IN REACH.
--- NOTE | 2022-02-08 04:01 | NUR ---
PT AAO X 3 BUT VERY FORGETFUL. WEAKNESS IN UE WITH L BEING WEAKER THAN THE R. PT DOES NOT MOVE LE'S WHEN ASKED BUT PER DAY RN, DOES MOVE THEM WHEN UP INTERMITTENTLY. SPEECH IS CLEAR BUT SLOW TO ANSWER AND SPEAKS SLOWLY. PT'S PUPILS ARE DIFFERENT IN SIZE WITH THE L BEING SLIGHTLY LARGER THAN THE RIGHT BUT PER THE PT'S GF PER THE DAY RN THIS IS NOT NEW AND WAS LIKE THAT BEFORE THIS ADMISSION AND SYMPTOMS. BS WAS 200. SCD'S. TELE NSR WITH BBB. PT DENIED ANY DISCOMFORT FOR THIS SHIFT.
--- NOTE | 2022-02-08 05:48 | NUR ---
PT LYING IN BED, EYES CLOSED, APPEARS TO BE RESTING. WAKES EASILY TO VERBAL STIMULI. NO APPARENT SIGNS OF DISTRESS. CALL LIGHT IS IN REACH. NO OTHER CHANGES THIS SHIFT.
[2022-02-08 05:58] LABS: BASOPHILS ABSOLUTE AUTO 0.04 K/mm3 (0.00-0.23); BASOPHILS PERCENT AUTO 1 % (0-2); EOSINOPHILS ABSOLUTE AUTO 0.09 K/mm3 (0.00-0.68); EOSINOPHILS PERCENT AUTO 2 % (0-6); Hematocrit 53.4 % (37.0-53.0); Hemoglobin 16.8 g/dL (13.5-17.5); IMMATURE GRAN PERCENT AUTO 0 % (0-1); LYMPHOCYTES ABSOLUTE AUTO 2.15 K/mm3 (0.84-5.20); LYMPHOCYTES PERCENT AUTO 36 % (21-46); MONOCYTES ABSOLUTE AUTO 0.56 K/mm3 (0.16-1.47); MONOCYTES PERCENT AUTO 10 % (4-13); Mean Corpuscular HGB 24.5 pg (26.0-34.0); Mean Corpuscular HGB Conc 31.5 g/dL (31.5-36.5); Mean Corpuscular Volume 78 fL (80-100); NEUTROPHILS ABSOLUTE AUTO 3.08 K/mm3 (1.96-9.15); NEUTROPHILS PERCENT AUTO 52 % (41-73); Platelet Count 263 K/mm3 (150-400); RDW Coefficient Variation 17.8 % (11.7-14.2); Red Blood Cell Count 6.86 M/mm3 (4.30-5.90); White Blood Cell Count 5.92 K/mm3 (4.00-11.30)
[2022-02-08 06:19] LABS: Anion Gap 6 mmol/L (6-16); Blood Urea Nitrogen 21 mg/dL (8-24); Bun/Creatinine Ratio 18.6 (12.0-20.0); CO2, Blood 24 mmol/L (21-32); Calcium, Blood 9.5 mg/dL (8.5-10.1); Chloride, Blood 109 mmol/L (98-108); Creatinine, Blood 1.13 mg/dL (0.60-1.20); Glomerular Filtration Rate 85 (60-); Glucose, Blood 138 mg/dL (70-99); Phosphorus, Blood 3.8 mg/dL (2.5-4.9); Potassium, Blood 3.8 mmol/L (3.5-5.5); Sodium, Blood 139 mmol/L (136-145)
[2022-02-08 15:10] LABS: A/G RATIO 0.9 (0.7-1.7); ALBUMIN 2.9 g/dL (2.9-4.4); ALPHA-1-GLOBULIN 0.2 g/dL (0.0-0.4); ALPHA-2-GLOBULIN 0.9 g/dL (0.4-1.0); BETA GLOBULIN 1.1 g/dL (0.7-1.3); GLOBULIN, TOTAL 3.2 g/dL (2.2-3.9); M-SPIKE Not Observed g/dL (Not Observed); PROTEIN, TOTAL, SERUM 6.1 g/dL (6.0-8.5)
--- NOTE | 2022-02-08 17:03 | NUR ---
SHIFT SUMMARY; PATIENT WORKED WITH PT OT TODAY. PATIENT COMPLIANT WITH CARE HOWEVER EXPRESSES THAT HE IS VERY WEAK AND UNABLE TO STAND FOR VERY LONG AT A TIME. HIS GIRLFRIEND SPENDS Afternoon AT BEDSIDE AND ASSISTS WITH CARE. CARE MANAGEMENT IS LOOOKING FOR PLACEMENT AT AN IRU OR SNF. WILL REMAIN AVAILABLE FOR THIS PAITENT FOR ANY WANTS OR NEEDS UNTIL HAND OFF AT SHIFT CHANGE.
[2022-02-08 18:10] LABS: Source, Urine Foley catheter
[2022-02-08 18:16] LABS: Appearance, Urine Clear (Clear); Bilirubin, Urine Neg (Neg); Blood, Urine Neg (Neg); Color, Urine Yellow (P-Yellow); Glucose Qualitative, Urine 3+ (Neg); Ketones, Urine Neg (Neg); Leukocyte Esterase, Urine Neg (Neg); Nitrite, Urine Neg (Neg); Protein, Urine 3+ (Neg); Specific Gravity, Urine 1.025 (1.003-1.022); Urobilinogen, Urine NORM (Normal)
[2022-02-08 18:29] LABS: Bacteria Rare /hpf; Red Blood Cells, Urine 0-2 /hpf (0-2); Squamous Epithelial Cells Rare /hpf (Few); White Blood Cells, Urine 0-2 /hpf (0-5)
[2022-02-09 05:45] LABS: BASOPHILS ABSOLUTE AUTO 0.04 K/mm3 (0.00-0.23); BASOPHILS PERCENT AUTO 1 % (0-2); EOSINOPHILS ABSOLUTE AUTO 0.08 K/mm3 (0.00-0.68); EOSINOPHILS PERCENT AUTO 1 % (0-6); Hematocrit 52.3 % (37.0-53.0); Hemoglobin 16.6 g/dL (13.5-17.5); IMMATURE GRAN ABSOLUTE AUTO 0.01 K/mm3 (0.00-0.10); IMMATURE GRAN PERCENT AUTO 0 % (0-1); LYMPHOCYTES ABSOLUTE AUTO 2.16 K/mm3 (0.84-5.20); LYMPHOCYTES PERCENT AUTO 33 % (21-46); MONOCYTES ABSOLUTE AUTO 0.62 K/mm3 (0.16-1.47); MONOCYTES PERCENT AUTO 10 % (4-13); Mean Corpuscular HGB 24.4 pg (26.0-34.0); Mean Corpuscular HGB Conc 31.7 g/dL (31.5-36.5); Mean Corpuscular Volume 77 fL (80-100); Mean Platelet Volume 9.9 fL (9.1-12.4); NEUTROPHILS ABSOLUTE AUTO 3.65 K/mm3 (1.96-9.15); NEUTROPHILS PERCENT AUTO 56 % (41-73); Platelet Count 258 K/mm3 (150-400); RDW Coefficient Variation 17.8 % (11.7-14.2); RDW Standard Deviation 45.1 fL (35.1-46.3); Red Blood Cell Count 6.79 M/mm3 (4.30-5.90); White Blood Cell Count 6.56 K/mm3 (4.00-11.30)
[2022-02-09 06:11] LABS: Albumin, Blood 2.8 g/dL (3.4-5.0); Anion Gap 8 mmol/L (6-16); Blood Urea Nitrogen 22 mg/dL (8-24); CO2, Blood 25 mmol/L (21-32); Calcium, Blood 8.8 mg/dL (8.5-10.1); Chloride, Blood 108 mmol/L (98-108); Creatinine, Blood 1.05 mg/dL (0.60-1.20); Glomerular Filtration Rate 93 (60-); Glucose, Blood 186 mg/dL (70-99); Phosphorus, Blood 3.5 mg/dL (2.5-4.9); Sodium, Blood 141 mmol/L (136-145)
--- NOTE | 2022-02-09 07:38 | NUR ---
PT CONDITION CONTINUES TO WORSEN. FLEXION THAT WAS PALPABLE ON RLE HAS BEEN REDUCED TO A FLICKER OF MUSCLE. OUTPUT FROM [facility] 825 ML. NO OTHER ISSUES OVERNIGHT
--- NOTE | 2022-02-09 18:20 | NUR ---
SHIFT SUMMARY; PATIENT IS READY TO DC TO SNF PER TODAY. HE IS WORKING WITH PT OT AND ENCOURAGED TO TRY AND DO MORE FOR HIMSELF. PATIENT IS NOTED TO BE VERY SOFT SPOKEN AND APPEARS SLIGHTLY DEPRESSED. SITTING AND SPEAKING WITH HIM SEEMS TO BRING HIM OUT OF HIS SHELL AND HE IS ABLE TO CONVERSE WITH STAFF AND MAKE CONVERSATION. GIRLFRIEND AT BEDSIDE AND SHE ENCOURAGES PATIENT TO WORK WITH PT OT AND KEEP DOING EXERCISES THROUGHOUT THE DAY. PATIENT HAD SLIGHTLY ELEVATED B/P TODAY HOWEVER THIS EVENING NOTED TO BE IN THE 130'S SYSTOLIC. PULSE IN THE 70'S NSR. HE IS STILL WEAK IN ALL 4 EXTREMITIES AND HAS OBVIOUS INCREASED LEFT SIDE WEAKNESS MORE THAN RIGHT SIDE. PATIENT IS ABLE TO FEED HIMSELF AND TAKES HIS MEDICATIONS WHOLE WITH WATER. WILL CONTINUE TO MONITOR THIS PATIENT CLOSELY UNTIL HAND OFF AT SHIFT CHANGE TO NOC SHIFT RN.
[2022-02-09 23:07] LABS: VITAMIN E(GAMMA TOCOPHEROL) 3.6 mg/L (0.7-4.9)
--- NOTE | 2022-02-10 06:11 | NUR ---
SHIFT SUMMARY PATIENT ALERT AND ORIENTED. HAD NO COMPLAINTS OF PAIN OR SHORTNESS OF BREATH. NO ACUTE ISSUES NOTED OVERNIGHT. CALL LIGHT WITHIN REACH. REPORT GIVEN TO ONCOMING RN.
--- NOTE | 2022-02-10 17:38 | NUR ---
SHIFT SUMMARY PATIENT IS ALERT AND ORIENTED. PATIENT HAS BEEN PLEASENT AND COOPERATIVE WITH CARE. PATIENT APPEARS TO BE WITHDRAWN AND IS SOFTSPOKEN AND HARD TO HEAR. NO ACUTE EVENTS THIS SHIFT. VITAL SIGNS REVIEWED. BED IN LOCKED AND LOWEST POSITION. CALL LIGHT IN PLACE. WILL MONITOR UNTIL SHIFT CHANGE.
[2022-02-11 05:54] LABS: BASOPHILS ABSOLUTE AUTO 0.04 K/mm3 (0.00-0.23); BASOPHILS PERCENT AUTO 1 % (0-2); EOSINOPHILS ABSOLUTE AUTO 0.11 K/mm3 (0.00-0.68); EOSINOPHILS PERCENT AUTO 2 % (0-6); Hematocrit 51.9 % (37.0-53.0); Hemoglobin 16.7 g/dL (13.5-17.5); IMMATURE GRAN ABSOLUTE AUTO 0.01 K/mm3 (0.00-0.10); IMMATURE GRAN PERCENT AUTO 0 % (0-1); LYMPHOCYTES ABSOLUTE AUTO 2.39 K/mm3 (0.84-5.20); LYMPHOCYTES PERCENT AUTO 36 % (21-46); MONOCYTES ABSOLUTE AUTO 0.65 K/mm3 (0.16-1.47); MONOCYTES PERCENT AUTO 10 % (4-13); Mean Corpuscular HGB Conc 32.2 g/dL (31.5-36.5); Mean Corpuscular Volume 78 fL (80-100); Mean Platelet Volume 9.9 fL (9.1-12.4); NEUTROPHILS ABSOLUTE AUTO 3.39 K/mm3 (1.96-9.15); NEUTROPHILS PERCENT AUTO 51 % (41-73); Platelet Count 246 K/mm3 (150-400); RDW Coefficient Variation 17.6 % (11.7-14.2); RDW Standard Deviation 45.7 fL (35.1-46.3); Red Blood Cell Count 6.67 M/mm3 (4.30-5.90); White Blood Cell Count 6.59 K/mm3 (4.00-11.30)
--- NOTE | 2022-02-11 06:11 | NUR ---
SHIFT SUMMARY PATIENT ALERT AND ORIENTED. HAD NO COMPLAINTS OF PAIN OR SHORTNESS OF BREATH. NO ACUTE ISSEUS NOTED OVERNIGHT. CALL LIGHT WITHIN REACH. REPORT GIVEN TO ONCOMING RN.
[2022-02-11 06:17] LABS: Bun/Creatinine Ratio 20.9 (12.0-20.0); Creatinine, Blood 1.15 mg/dL (0.60-1.20); Potassium, Blood 3.8 mmol/L (3.5-5.5)
--- NOTE | 2022-02-11 15:55 | NUR ---
SHIFT SUMMARY PATIENT IS ALERT AND ORIENTED. PATIENT HAS HAD NO ACUTE EVENTS THIS SHIFT. PATIENT HAS HAD NO COMPLAINTS OF NAUSEA, SOB, VOMITTING OR PAIN THIS SHIFT. PATIENT IS ADMITTED FOR A CVA AND DEFICITS NOTED. BED IN LOCKED AND LOWEST POSITION. CALL LIGHT IN PLACE. WILL MONITOR UNTIL SHIFT CHANGE.
[2022-02-12 05:52] LABS: BASOPHILS ABSOLUTE AUTO 0.04 K/mm3 (0.00-0.23); BASOPHILS PERCENT AUTO 1 % (0-2); EOSINOPHILS ABSOLUTE AUTO 0.13 K/mm3 (0.00-0.68); EOSINOPHILS PERCENT AUTO 2 % (0-6); Hematocrit 50.9 % (37.0-53.0); Hemoglobin 16.1 g/dL (13.5-17.5); IMMATURE GRAN ABSOLUTE AUTO 0.01 K/mm3 (0.00-0.10); IMMATURE GRAN PERCENT AUTO 0 % (0-1); LYMPHOCYTES ABSOLUTE AUTO 2.33 K/mm3 (0.84-5.20); LYMPHOCYTES PERCENT AUTO 38 % (21-46); MONOCYTES ABSOLUTE AUTO 0.59 K/mm3 (0.16-1.47); MONOCYTES PERCENT AUTO 10 % (4-13); Mean Corpuscular HGB 24.8 pg (26.0-34.0); Mean Corpuscular HGB Conc 31.6 g/dL (31.5-36.5); Mean Corpuscular Volume 78 fL (80-100); Mean Platelet Volume 9.6 fL (9.1-12.4); NEUTROPHILS ABSOLUTE AUTO 3.12 K/mm3 (1.96-9.15); NEUTROPHILS PERCENT AUTO 50 % (41-73); Platelet Count 242 K/mm3 (150-400); RDW Coefficient Variation 18.2 % (11.7-14.2); RDW Standard Deviation 46.9 fL (35.1-46.3); White Blood Cell Count 6.22 K/mm3 (4.00-11.30)
[2022-02-12 06:19] LABS: Bun/Creatinine Ratio 22.7 (12.0-20.0); Calcium, Blood 9.2 mg/dL (8.5-10.1); Creatinine, Blood 0.97 mg/dL (0.60-1.20)
--- NOTE | 2022-02-12 06:33 | NUR ---
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 PT has pendleton cath for urinary retention. Appetite good asks for HS snack. Poor historian, unable to recall last BM. Working with therapy using stressballs to work hands. Discharge planning continues.
--- NOTE | 2022-02-12 18:02 | NUR ---
NO ACUTE CHANGES THIS SHIFT PATIENT AWAITING PLACEMENT, VSS, ON RA. WORKED WITH PT/OT. UP WITH FWW, GB AND 1-2 ASSIST. [facility] TO GRAVITY, ADEQUATE U/O. CALM AND COOPERATIVE WITH WITH CARE.
--- NOTE | 2022-02-13 05:00 | NUR ---
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 CONTINUES WITH [facility] CATH FOR RETENTION POST CVA &HE HAS NO DOCUMENTED BOWEL MOVEMENT SO DID SUPPOSITORY & RECTAL CHECK.mIRALAX GIVEN ALSO AWAIT EFFECT.
[2022-02-13 05:32] LABS: BASOPHILS ABSOLUTE AUTO 0.04 K/mm3 (0.00-0.23); BASOPHILS PERCENT AUTO 1 % (0-2); EOSINOPHILS ABSOLUTE AUTO 0.13 K/mm3 (0.00-0.68); EOSINOPHILS PERCENT AUTO 2 % (0-6); Hematocrit 49.4 % (37.0-53.0); Hemoglobin 15.5 g/dL (13.5-17.5); IMMATURE GRAN ABSOLUTE AUTO 0.01 K/mm3 (0.00-0.10); IMMATURE GRAN PERCENT AUTO 0 % (0-1); LYMPHOCYTES ABSOLUTE AUTO 2.72 K/mm3 (0.84-5.20); LYMPHOCYTES PERCENT AUTO 44 % (21-46); MONOCYTES ABSOLUTE AUTO 0.56 K/mm3 (0.16-1.47); MONOCYTES PERCENT AUTO 9 % (4-13); Mean Corpuscular HGB 24.8 pg (26.0-34.0); Mean Corpuscular HGB Conc 31.4 g/dL (31.5-36.5); Mean Corpuscular Volume 79 fL (80-100); Mean Platelet Volume 10.4 fL (9.1-12.4); NEUTROPHILS PERCENT AUTO 44 % (41-73); Platelet Count 233 K/mm3 (150-400); RDW Coefficient Variation 17.8 % (11.7-14.2); RDW Standard Deviation 47.5 fL (35.1-46.3); Red Blood Cell Count 6.24 M/mm3 (4.30-5.90); White Blood Cell Count 6.16 K/mm3 (4.00-11.30)
[2022-02-13 06:01] LABS: Bun/Creatinine Ratio 22.3 (12.0-20.0); Calcium, Blood 9.1 mg/dL (8.5-10.1); Creatinine, Blood 1.12 mg/dL (0.60-1.20); Potassium, Blood 3.8 mmol/L (3.5-5.5)
--- NOTE | 2022-02-13 13:23 | NUR ---
Brief supportive visit this afternoon. Pt A&OX2/3. Pt denies pain and dyspnea at this time. Pt slow to respond and struggles with processing questions. Ended visit to allow Pt to rest. Spoke with TARIQ Hamm and discussed case. Spoke with CROW Woo and discussed case. Palliative Care will F/U when Pt's SO Megha arrives for Advanced Care Planning.
--- NOTE | 2022-02-13 18:08 | NUR ---
SHIFT SUMMARY PT A&OX4, SLOW TO RESPOND @ TIMES W/ PERIODICAL CONFUSION. GIRLFRIEND IN TO SEE PT DURING VISITING HOURS. PT GIRLFRIEND IS HIS NEXT OF KIN, PT INFO WRONGLY STATES SHE IS HIS SISTER. WORKED W/ PHYSICAL AND OCCUPAIONAL THERAPY THIS SHIFT. PUPILS BRISK AND REACTIVE. CALL LIGHT W/IN REACH.
[2022-02-14 11:15] LABS: Influenza A, PCR NEGATIVE (NEGATIVE); Influenza B, PCR NEGATIVE (NEGATIVE); Resp Syncytial Virus, PCR NEGATIVE (NEGATIVE); SARS-Cov-2 (COVID-19) PCR, MMC NEGATIVE (NEGATIVE)
--- NOTE | 2022-02-14 14:00 | NUR ---
SPOKEDAR WITH OVER TELEPHONE REGARDING D/C. [facility] STILL IN PLACE. DR ORDERED [facility] REMOVEL AND REQUESTED PT VOID PRIOR TO D/C. DELAYED D/C TO ALLOW PT TO VOID ON OWN.
[2022-02-14] MEDS ORDERED: ASPI81CH PO (14:38)
[2022-02-14] MEDS ORDERED: GABA100 PO (14:39)
[2022-02-14] MEDS ORDERED: CLOP75 PO (14:39)
[2022-02-14] MEDS ORDERED: CITALOPRAM HBR20 M8 PO (14:39)
[2022-02-14] MEDS ORDERED: NIFE30ER PO (14:40)
[2022-02-14] MEDS ORDERED: HYDRA25 PO (14:40)
--- NOTE | 2022-02-14 17:21 | NUR ---
SHIFT SUMMARY- PT PLEASANT. PT STATES FOGGY DURING AM PORTION OF SHIFT. PT ABLE TO STAND AND MOVE LEFT ARM AND LEFT LEG SLIGHTLY MORE THAN YESTERDAY ACCORD TO SELF REPORT. PT AWAITING D/C. CALL LIGHT IN REACH AND SIDE RAILS UP FOR SAFETY. PT TO BE D/C DEPENDING ON URINARY OUTPUT AFTER [facility] REMOVAL. PT VOIDED 850 ML THE FIRST 3 HRS AFTER [facility] D/C. BLADDER SCAN REPORTED 767 ML, DISCUSSED WITH . DISCUSSED HOLDING D/C UNTIL AM FOR BLADDER TRAINING.
--- NOTE | 2022-02-14 18:35 | NUR ---
BLADDER SCAN @1830 392ML.
--- NOTE | 2022-02-15 05:00 | NUR ---
SUMMARY: PT A/OX3 AND IS ABLE TO SPECIFY BUT REPORTS FEELING "FOGGY" STILL. L.SIDE REMAINS WEAKER THAN R.SIDE BUT PT IS ABLE TO STAND, AMBULATE W/FWW AND USE L.ARM/HAND. HE USES URINAL INDEPENDENTLY AN IS 1PA W/FWW TO TOILET. BED ALARM ON FOR OCCASSIONAL FORGETFULLNESS. PT USED TOILET FOR X2 UNMEASURED VOIDS BUT SOME URINARY RETENTION PERSISTS. AM BLADDER SCAN WAS 320 MLS BUT PT DENIES BLADDER DISTENSION OR TENDERNESS. HE REMAINS NSR AT 70'S-80'S BPM W/O ECTOPIES THIS SHIFT. VSS/AFEBRILE, NO ACUTE CHANGES. WCTM/REPORT TO DAY RN.
[2022-02-15 11:50] LABS: Influenza A, PCR NEGATIVE (NEGATIVE); Influenza B, PCR NEGATIVE (NEGATIVE); Resp Syncytial Virus, PCR NEGATIVE (NEGATIVE); SARS-Cov-2 (COVID-19) PCR, MMC NEGATIVE (NEGATIVE)
--- NOTE | 2022-02-15 15:01 | NUR ---
dc home pt dc'd home. piv dc'd with cath tip intact. no redness or sweLling noted at site. DC INSTRUCTIONS GIVEN TO PT WITH GOOD UNDERSTANDING. NEW SCRIPT FAXED TO [facility], PT'S PREFERRED PHARM. PT HOME WITH ALL PERSONAL BELONGINGS, FRIEND TO DRIVE PT HOME.
--- NOTE | 2022-02-15 16:52 | NUR ---
LATE ENTRY/DC HOME 1430: DC ORDERS RECEIVED. DC INSTRUCTIONS GIVEN TO PT WITH GOOD UNDERSTANDING VERBALIZED. PIV DC'D WITH CATH TIP INTACT, NO REDNESS OR SWELLING NOTED AT SITE. PT TO GO TO [facility] VIA W/C TRANSPORT VIA [facility]. PT'S SO NOTIFIED AND AWARE. REPORT CALLED TO SHAYNE AT REHAB.
== END 2022-02-15 14:40 | DRG 65 ==
LOC: ER 14:02 → MEDS 14:03 → ENPENDDIS 02-14 18:19 → MEDS 02-15 14:40
PROVIDERS: Family Medicine; Internal Medicine; Student in an Organized Health Care Education/Training Program; ADMIT Family Medicine
DX: I63.9 Cerebral infarction, unspecified (principal); G81.91 Hemiplegia, unspecified affecting right dominant side; I16.1 Hypertensive emergency; G81.94 Hemiplegia, unspecified affecting left nondominant side; E11.9 Type 2 diabetes mellitus without complications; R33.9 Retention of urine, unspecified; K59.00 Constipation, unspecified; Z20.822 Contact with and (suspected) exposure to COVID-19; I10 Essential (primary) hypertension; Z98.890 Other specified postprocedural states; F17.210 Nicotine dependence, cigarettes, uncomplicated; Z79.82 Long term (current) use of aspirin; Z79.899 Other long term (current) drug therapy; Z79.4 Long term (current) use of insulin; D75.1 Secondary polycythemia; M51.36 Other intervertebral disc degeneration, lumbar region
CPT/HCPCS: 0241U; 36415; 70496; 70498; 70553; 72148; 80048; 80053; 80069; 81001; 82525; 82550; 82553; 82607; 82947; 83036; 83605; 83690; 83735; 84165; 84207; 84443; 84446; 84484; 85025; 85651; 86140; 86141; 86225; 86235; 86308; 87040; 87389; 93306; 97110; 97112; 97116; 97162; 97166; 97530; 97535; 99285-25; A9270; A9579; G0378; J1644; J1815; J1885; J7120; Q9967

== ENCOUNTER → 2022-02-02 | Outpatient (CLI) | payer OTHER ==
[~2022-02-02] MED LIST changes: +CATAPRES0.3 MG PO; +LABE100 PO; +LISI20 PO
[2022-02-02 11:57] LABS: BASOPHILS ABSOLUTE AUTO 0.05 K/mm3 (0.00-0.23); BASOPHILS PERCENT AUTO 1 % (0-2); EOSINOPHILS ABSOLUTE AUTO 0.05 K/mm3 (0.00-0.68); EOSINOPHILS PERCENT AUTO 1 % (0-6); Hematocrit 51.9 % (37.0-53.0); Hemoglobin 17.4 g/dL (13.5-17.5); IMMATURE GRAN ABSOLUTE AUTO 0.01 K/mm3 (0.00-0.10); IMMATURE GRAN PERCENT AUTO 0 % (0-1); LYMPHOCYTES ABSOLUTE AUTO 1.63 K/mm3 (0.84-5.20); LYMPHOCYTES PERCENT AUTO 24 % (21-46); MONOCYTES ABSOLUTE AUTO 0.44 K/mm3 (0.16-1.47); MONOCYTES PERCENT AUTO 7 % (4-13); Mean Corpuscular HGB 25.4 pg (26.0-34.0); Mean Corpuscular HGB Conc 33.5 g/dL (31.5-36.5); Mean Corpuscular Volume 76 fL (80-100); Mean Platelet Volume 10.2 fL (9.1-12.4); NEUTROPHILS ABSOLUTE AUTO 4.58 K/mm3 (1.96-9.15); NEUTROPHILS PERCENT AUTO 68 % (41-73); Platelet Count 273 K/mm3 (150-400); RDW Coefficient Variation 17.7 % (11.7-14.2); RDW Standard Deviation 42.9 fL (35.1-46.3); Red Blood Cell Count 6.84 M/mm3 (4.30-5.90); White Blood Cell Count 6.76 K/mm3 (4.00-11.30)
[2022-02-02 12:04] LABS: Albumin, Blood 3.1 g/dL (3.4-5.0); Albumin/Globulin Ratio 0.8 (0.8-1.8); Bilirubin, Total 0.4 mg/dL (0.1-1.0); Bun/Creatinine Ratio 13.7 (12.0-20.0); Calcium, Blood 9.2 mg/dL (8.5-10.1); Creatinine, Blood 1.17 mg/dL (0.60-1.20); Total Protein, Blood 7.1 g/dL (6.4-8.2)
== END | disposition home or self-care (01) ==
LOC: LAB SHORT 11:50 → LAB 11:50
PROVIDERS: Physician Assistant
DX: D45 Polycythemia vera (principal); R20.2 Paresthesia of skin
CPT/HCPCS: 80053; 84484; 85025

== ENCOUNTER 2022-04-19 16:35 | Emergency (ER) | payer OTHER ==
[~2022-04-19] VITALS: Ht 185.4 cm; Wt 99.8 kg
[~2022-04-19 16:35] MED LIST changes: -AZIT500 PO; -GABA300 PO; -HUMALOG JU100 UNIT/2 SC; -HYDCHL25 PO; -MIRALAX17 GM
[2022-04-19] MEDS ORDERED: GABA300 PO (18:14)
[2022-04-19] MEDS ORDERED: HYDCHL25 PO (18:15)
[2022-04-19 18:17] LABS: Influenza A, PCR NEGATIVE (NEGATIVE); Influenza B, PCR NEGATIVE (NEGATIVE); Resp Syncytial Virus, PCR NEGATIVE (NEGATIVE); SARS-Cov-2 (COVID-19) PCR, MMC NEGATIVE (NEGATIVE)
[2022-04-19] MEDS ORDERED: HUMALOG JU100 UNIT/2 SC (18:17)
[2022-04-19] MEDS ORDERED: MIRALAX17 GM (18:19)
[2022-04-19] MEDS ORDERED: AZIT500 PO (18:24)
== END 2022-04-19 18:46 | disposition home or self-care (01) ==
LOC: ER 16:35
PROVIDERS: Emergency Medicine
DX: E11.65 Type 2 diabetes mellitus with hyperglycemia (principal); J06.9 Acute upper respiratory infection, unspecified; R53.83 Other fatigue; I10 Essential (primary) hypertension; F17.290 Nicotine dependence, other tobacco product, uncomplicated; F17.210 Nicotine dependence, cigarettes, uncomplicated; Z79.899 Other long term (current) drug therapy; Z79.4 Long term (current) use of insulin; Z79.02 Long term (current) use of antithrombotics/antiplatelets; Z20.822 Contact with and (suspected) exposure to COVID-19
CPT/HCPCS: 0241U; 71045; 84484; 93005; 93010; 99285-25; J7030

== ENCOUNTER → 2022-04-19 | Outpatient (CLI) | payer OTHER ==
[~2022-04-19] MED LIST changes: +AZIT500 PO; +CATAPRES0.3 MG PO; +CEPH500 PO; +CITALOPRAM HBR20 M8 PO; +CLOP75 PO; +GABA100 PO; +GABA300 PO; +HUMALOG JU100 UNIT/2 SC; +HYDCHL25 PO; +HYDRA25 PO; +LABE100 PO; +LISI20 PO; +MIRALAX17 GM; +NIFE30ER PO
[2022-04-19 16:32] LABS: BASOPHILS ABSOLUTE AUTO 0.02 K/mm3 (0.00-0.23); BASOPHILS PERCENT AUTO 0 % (0-2); EOSINOPHILS ABSOLUTE AUTO 0.15 K/mm3 (0.00-0.68); EOSINOPHILS PERCENT AUTO 3 % (0-6); Hematocrit 42.5 % (37.0-53.0); Hemoglobin 14.3 g/dL (13.5-17.5); IMMATURE GRAN ABSOLUTE AUTO 0.01 K/mm3 (0.00-0.10); IMMATURE GRAN PERCENT AUTO 0 % (0-1); LYMPHOCYTES ABSOLUTE AUTO 2.59 K/mm3 (0.84-5.20); LYMPHOCYTES PERCENT AUTO 47 % (21-46); MONOCYTES ABSOLUTE AUTO 0.55 K/mm3 (0.16-1.47); MONOCYTES PERCENT AUTO 10 % (4-13); Mean Corpuscular HGB 26.8 pg (26.0-34.0); Mean Corpuscular HGB Conc 33.6 g/dL (31.5-36.5); Mean Corpuscular Volume 80 fL (80-100); Mean Platelet Volume 9.5 fL (9.1-12.4); NEUTROPHILS PERCENT AUTO 40 % (41-73); Platelet Count 237 K/mm3 (150-400); RDW Standard Deviation 48.8 fL (35.1-46.3); Red Blood Cell Count 5.33 M/mm3 (4.30-5.90); White Blood Cell Count 5.52 K/mm3 (4.00-11.30)
[2022-04-19 16:36] LABS: Bun/Creatinine Ratio 17.6 (12.0-20.0); Calcium, Blood 9.2 mg/dL (8.5-10.1); Creatinine, Blood 1.19 mg/dL (0.60-1.20); Potassium, Blood 4.6 mmol/L (3.5-5.5)
== END | disposition home or self-care (01) ==
LOC: LAB 16:27 → LAB SHORT 16:27
PROVIDERS: Physician Assistant Surgical
DX: R42 Dizziness and giddiness (principal)
CPT/HCPCS: 80048; 85025

== ENCOUNTER 2022-05-22 10:02 | Emergency (ER) | payer OTHER ==
[~2022-05-22] VITALS: Ht 185.4 cm; Wt 102.5 kg
[~2022-05-22 10:02] MED LIST changes: +AZIT500 PO; +GABA300 PO; +HUMALOG JU100 UNIT/2 SC; +HYDCHL25 PO; +MIRALAX17 GM
[2022-05-22 10:53] LABS: BASOPHILS ABSOLUTE AUTO 0.05 K/mm3 (0.00-0.23); BASOPHILS PERCENT AUTO 1 % (0-2); EOSINOPHILS ABSOLUTE AUTO 0.13 K/mm3 (0.00-0.68); EOSINOPHILS PERCENT AUTO 3 % (0-6); Hemoglobin 16.2 g/dL (13.5-17.5); IMMATURE GRAN PERCENT AUTO 0 % (0-1); LYMPHOCYTES ABSOLUTE AUTO 2.06 K/mm3 (0.84-5.20); LYMPHOCYTES PERCENT AUTO 39 % (21-46); MONOCYTES ABSOLUTE AUTO 0.46 K/mm3 (0.16-1.47); MONOCYTES PERCENT AUTO 9 % (4-13); Mean Corpuscular HGB 27.7 pg (26.0-34.0); Mean Corpuscular HGB Conc 33.8 g/dL (31.5-36.5); Mean Corpuscular Volume 82 fL (80-100); Mean Platelet Volume 9.3 fL (9.1-12.4); NEUTROPHILS ABSOLUTE AUTO 2.54 K/mm3 (1.96-9.15); NEUTROPHILS PERCENT AUTO 48 % (41-73); Platelet Count 246 K/mm3 (150-400); RDW Coefficient Variation 15.3 % (11.7-14.2); Red Blood Cell Count 5.84 M/mm3 (4.30-5.90); White Blood Cell Count 5.24 K/mm3 (4.00-11.30)
[2022-05-22 11:19] LABS: Albumin, Blood 3.3 g/dL (3.4-5.0); Albumin/Globulin Ratio 0.7 (0.8-1.8); Bilirubin, Total 0.3 mg/dL (0.1-1.0); Bun/Creatinine Ratio 17.9 (12.0-20.0); Calcium, Blood 9.4 mg/dL (8.5-10.1); Creatinine, Blood 1.12 mg/dL (0.60-1.20); Globulin, Blood 4.7 g/dL (2.2-4.0); Magnesium, Blood 2.4 mg/dL (1.6-2.4)
== END 2022-05-22 14:14 | disposition left against medical advice (07) ==
LOC: ER 10:02
PROVIDERS: Physician Assistant
DX: M79.602 Pain in left arm (principal); Z79.4 Long term (current) use of insulin; Z79.899 Other long term (current) drug therapy; Z53.21 Procedure and treatment not carried out due to patient leaving prior to being seen by health care provider
CPT/HCPCS: 36415; 71045; 80053; 82947; 83735; 84484; 85025; 93005; 93010

== ENCOUNTER 2022-06-06 18:37 | Inpatient (IN) | payer OTHER ==
[~2022-06-06] VITALS: Ht 185.4 cm; Wt 99.8 kg
[~2022-06-06 18:37] MED LIST changes: -HUMALOG JU100 UNIT/2 SC; +HUMALOG KW100 UNIT/1 SC; -MIRALAX17 GM; +MIRALAX17 GM PO
[2022-06-06 19:45] LABS: BASOPHILS ABSOLUTE AUTO 0.04 K/mm3 (0.00-0.23); BASOPHILS PERCENT AUTO 1 % (0-2); EOSINOPHILS ABSOLUTE AUTO 0.09 K/mm3 (0.00-0.68); EOSINOPHILS PERCENT AUTO 2 % (0-6); Hematocrit 45.6 % (37.0-53.0); Hemoglobin 15.3 g/dL (13.5-17.5); IMMATURE GRAN PERCENT AUTO 0 % (0-1); LYMPHOCYTES ABSOLUTE AUTO 2.31 K/mm3 (0.84-5.20); LYMPHOCYTES PERCENT AUTO 45 % (21-46); MONOCYTES ABSOLUTE AUTO 0.48 K/mm3 (0.16-1.47); MONOCYTES PERCENT AUTO 9 % (4-13); Mean Corpuscular HGB 28.1 pg (26.0-34.0); Mean Corpuscular HGB Conc 33.6 g/dL (31.5-36.5); Mean Corpuscular Volume 84 fL (80-100); Mean Platelet Volume 9.7 fL (9.1-12.4); NEUTROPHILS ABSOLUTE AUTO 2.25 K/mm3 (1.96-9.15); NEUTROPHILS PERCENT AUTO 44 % (41-73); Platelet Count 266 K/mm3 (150-400); RDW Coefficient Variation 14.4 % (11.7-14.2); Red Blood Cell Count 5.45 M/mm3 (4.30-5.90); White Blood Cell Count 5.17 K/mm3 (4.00-11.30)
[2022-06-06 22:39] LABS: Albumin, Blood 3.4 g/dL (3.4-5.0); Albumin/Globulin Ratio 0.8 (0.8-1.8); Bilirubin, Total 0.2 mg/dL (0.1-1.0); Bun/Creatinine Ratio 19.1 (12.0-20.0); Creatinine, Blood 1.31 mg/dL (0.60-1.20); Globulin, Blood 4.2 g/dL (2.2-4.0); Potassium, Blood 4.2 mmol/L (3.5-5.5); Total Protein, Blood 7.6 g/dL (6.4-8.2)
[2022-06-07] MEDS ORDERED: Aspir 8181 MG PO (00:45)
[2022-06-07] MEDS ORDERED: BISA10S PR (00:45)
[2022-06-07] MEDS ORDERED: CLOP75 PO (00:46)
[2022-06-07] MEDS ORDERED: Methocarbamol500 MG PO (00:48)
[2022-06-07 04:49] LABS: BASOPHILS ABSOLUTE AUTO 0.04 K/mm3 (0.00-0.23); BASOPHILS PERCENT AUTO 1 % (0-2); EOSINOPHILS ABSOLUTE AUTO 0.14 K/mm3 (0.00-0.68); EOSINOPHILS PERCENT AUTO 2 % (0-6); Hematocrit 42.1 % (37.0-53.0); IMMATURE GRAN ABSOLUTE AUTO 0.01 K/mm3 (0.00-0.10); IMMATURE GRAN PERCENT AUTO 0 % (0-1); LYMPHOCYTES ABSOLUTE AUTO 3.02 K/mm3 (0.84-5.20); LYMPHOCYTES PERCENT AUTO 49 % (21-46); MONOCYTES ABSOLUTE AUTO 0.63 K/mm3 (0.16-1.47); MONOCYTES PERCENT AUTO 10 % (4-13); Mean Corpuscular HGB Conc 33.3 g/dL (31.5-36.5); Mean Corpuscular Volume 84 fL (80-100); Mean Platelet Volume 9.7 fL (9.1-12.4); NEUTROPHILS ABSOLUTE AUTO 2.31 K/mm3 (1.96-9.15); NEUTROPHILS PERCENT AUTO 38 % (41-73); Platelet Count 258 K/mm3 (150-400); RDW Coefficient Variation 14.4 % (11.7-14.2); RDW Standard Deviation 44.2 fL (35.1-46.3); White Blood Cell Count 6.15 K/mm3 (4.00-11.30)
[2022-06-07 05:11] LABS: Albumin/Globulin Ratio 0.8 (0.8-1.8); Bilirubin, Total 0.3 mg/dL (0.1-1.0); Calcium, Blood 8.7 mg/dL (8.5-10.1); Creatinine, Blood 1.25 mg/dL (0.60-1.20); Globulin, Blood 3.7 g/dL (2.2-4.0); Total Protein, Blood 6.7 g/dL (6.4-8.2)
--- NOTE | 2022-06-07 05:35 | NUR ---
SHIFT SUMMARY: Pt arrived on unit from ED around 0100. He is A/Ox4 and call light appropriate. 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 His speech is slurred and slow. He has Left sided defecits but pt states this is also from previous stroke and has not gotten worse. He has sensation defecits in his BLE. States they are numb/tingling and can not feel when commercial lines underwriter pushed with pen on his skin. He states this is new. He has IVF running. Took his pills whole with water. No signs of dysphagia.
--- NOTE | 2022-06-07 17:31 | NUR ---
NO ACUTE CHANGES AT THIS TIME. PT IS ALERT, BUT CONTINUES TO HAVE TROUBLE TALKING AND CAN HAVE GARBLED SPEACH OR IS HARD TO HEAR. PT CONTINUES TO BE ABLE TO TRANSFER ONE PERSON WITH GAITBELT TO RESTROOM L LEG DOES SHAKE WHILE TRYING TO TRANSFER. PT IS ABLE TO MAKE NEEDS KNOWN WILL CONTINUE TO MONITOR.
--- NOTE | 2022-06-08 05:45 | NUR ---
SHIFT SUMMARY: Pt A/Ox4 and call light approrpiate. No changes overnight. Neuros remain unchanged. He still has stuttering/slurred speech, Left side remains weak but has been the way since previous stroke and has not worsened. No tele calls overnight. Pt denies pain, SOB, nausea. Does state he sometimes gets dizzy.
--- NOTE | 2022-06-08 09:16 | NUR ---
RN NOTE DR DAWSON CALLED TO INFORM OF HEADACHE R POSTERIOR HEAD AND NECK. TYLENOL ORDER READ BACK AND ENTERED IN [employer].
--- NOTE | 2022-06-08 12:21 | NUR ---
RN NOTE MR LANDIS HAS HAD A BUSY MORNING. HE HAD OCCUPATIONAL THERAPY, PHYSICAL THERAPY, DIABETIC EDUCATION FROM THE PASTRY COOK APPRENTICE AND NOW IS TOO TIRED FOR SPEACH THERAPY. HE C/O 6/10 HEADACHE TO THE RIGHT BACK OF HIS HEAD THIS AM GOING DOWN HIS R NECK, GIVEN TYLENOL WHICH DIDN'T HELP, BUT AFTER HIS THERAPIES HE IS SLEEPING SOUNDLY AND WILL RE-ASSESS PAIN AFTER HE HAS RESTED. DIFFICULTY FORMING WORDS THIS MORNING, HE WAS COMMUNICATIONG SOME VERBALLY AND SOME WITH HAND SIGNALS. HE DID SIT UP IN THE CHAIR BUT HAS LIMITED MOVEMENT OF HIS LEGS AND UNSTEADY BALANCE WHEN STANDING. BLIND TO LEFT EYE, POOR VISION TO R EYE, POOR BALANCE. HID MOTHER VISITED HIM THIS MORNING. BED LOW, CALL LIGHT IN REACH.
--- NOTE | 2022-06-08 17:39 | NUR ---
SHIFT SUMMARY SEE EARLIER NOTE. MR LANDIS CONTINUES TO HAVE HEADACHE AND NECK DISCOMFORT. HE DENIED WANTING FURTHER TYLENOL, SAID THAT HE'S DOING OK, AND THAT HE THINKS HE'S HAD THIS HEADACHE SINCE THE SYMPTOMS OF THIS STROKE. HE AGREED TO TRY A HEAT PAD FOR THE ACHE. VERY DIFFICULT FOR HIM TO CLEARLY SPEAK HIS NEEDS, QUIET STUTTERING VOICE. HE HAS DECREASED SENSATION TO HIS HANDS, POOR MOBILITY THOUGH HE DID WALK INTO THE BATHROOM WITH GAIT BELT ON, WALKER AND 1 PERSON ASSISTANCE. ACCUCHECK CONTINUES TO BE HIGH. HE AND HIS MOTHER DID TALK WITH MULTIPLE SPINDLE SCREW MACHINE OPERATOR ALEKSANDR THIS MORNING. BED ALARM ON. BED LOW AND CALL LIGHT IN REACH.
[2022-06-09 04:57] LABS: BASOPHILS ABSOLUTE AUTO 0.03 K/mm3 (0.00-0.23); BASOPHILS PERCENT AUTO 1 % (0-2); EOSINOPHILS ABSOLUTE AUTO 0.14 K/mm3 (0.00-0.68); EOSINOPHILS PERCENT AUTO 3 % (0-6); Hematocrit 45.8 % (37.0-53.0); Hemoglobin 15.6 g/dL (13.5-17.5); IMMATURE GRAN ABSOLUTE AUTO 0.01 K/mm3 (0.00-0.10); IMMATURE GRAN PERCENT AUTO 0 % (0-1); LYMPHOCYTES ABSOLUTE AUTO 2.16 K/mm3 (0.84-5.20); LYMPHOCYTES PERCENT AUTO 40 % (21-46); MONOCYTES ABSOLUTE AUTO 0.62 K/mm3 (0.16-1.47); MONOCYTES PERCENT AUTO 12 % (4-13); Mean Corpuscular HGB 28.2 pg (26.0-34.0); Mean Corpuscular HGB Conc 34.1 g/dL (31.5-36.5); Mean Corpuscular Volume 83 fL (80-100); Mean Platelet Volume 9.7 fL (9.1-12.4); NEUTROPHILS ABSOLUTE AUTO 2.42 K/mm3 (1.96-9.15); NEUTROPHILS PERCENT AUTO 45 % (41-73); Platelet Count 253 K/mm3 (150-400); RDW Coefficient Variation 13.7 % (11.7-14.2); RDW Standard Deviation 41.5 fL (35.1-46.3); Red Blood Cell Count 5.54 M/mm3 (4.30-5.90); White Blood Cell Count 5.38 K/mm3 (4.00-11.30)
--- NOTE | 2022-06-09 05:15 | NUR ---
PLASTIC WELDER SUMMARY NO ACUTE CHANGES. PT IS SLOW T/RESPOND W/MOVMENT AND SPEECH. PT WAS C/O OF LEFT SIDE CHEST PAIN INCREASED W/INPIRATION. PT SAYS IT HAS BEEN ONGOING. BREATH SOUNDS ARE DIMINISHED BUT EVEN; PT NOT C/O SOB--NO LABORED BREATHING NOTED. SATS WERE GOOD. PT REMAINS ON TELE--SINUS W/BBB, 62 BPM. PT BLIND IN LEFT EYE; PUPIL FIXED; RT EYE VISION IS HAZY. NEURO CHECKS CONT Q4; PT STRENGTH VERY WEEK BUT EQUAL BILATERALLY. PT MOSTLY UNABLE TO PUSH UP/DOWN WITH FEET AND HANDS. PT VERY UNSTEADY ON FEET--1-2PA W/GAIT BELT AND FWW. PT WAS ASKING QUESTIONS ABOUT WHAT IS HAPPENING WITH HIM AND WHAT IS THE PLAN FOR THE FUTURE. PT ABLE TO MAKE NEEDS KNOWN BUT NOTED HE DID NOT USE CALL LIGHT BUT WAITED TO REQUEST ASSISTANCE WHEN THIS NURSE ROUNDED. CALL LIGHT REMAINED INREACH. BED ALARM ON. WILL CONT T/MONITOR.
[2022-06-09 05:30] LABS: Albumin, Blood 3.1 g/dL (3.4-5.0); Albumin/Globulin Ratio 0.7 (0.8-1.8); Bilirubin, Total 0.3 mg/dL (0.1-1.0); Bun/Creatinine Ratio 18.5 (12.0-20.0); Calcium, Blood 9.1 mg/dL (8.5-10.1); Creatinine, Blood 1.19 mg/dL (0.60-1.20); Globulin, Blood 4.2 g/dL (2.2-4.0); Magnesium, Blood 1.9 mg/dL (1.6-2.4); Phosphorus, Blood 4.4 mg/dL (2.5-4.9); Potassium, Blood 4.2 mmol/L (3.5-5.5); Total Protein, Blood 7.3 g/dL (6.4-8.2)
--- NOTE | 2022-06-09 08:39 | NUR ---
RN NOTE MR LANDIS IS ABLE TO WRITE DOWN ANSWERS TO ORIENTATION QUESTIONS, WROTE HIS NAME, DATE, LOCATION AND REASON FOR BEING HERE. HIS SPEACH IS QUIET, STUTTERING AND DIFFICULT TO UNDERSTAND AND HE IS OFTEN ASKING WHAT HAPPENED TO HIS SPEACH. DECREASED SENSATION TO LIGHT TOUCH BOTH RIGHT ARMS AND LEFT ARMS EQUALLY. LEFT AND RIGHT DECREASED SENSATION TO FACE. POOR HAND BOX SPRING MAKER AND POOR TOE MOVEMENT WHEN ASKED WHEN HE'S LYING IN BED. ABLE TO SIT UP ON THE EDGE OF THE BED INDEPENDENTLY. ABLE TO USE HIS CELL PHONE. WALKED IN TO THE BATHROOM, GAIT BELT, WALKER. HE LIFTS HIS RIGHT FOOT AND DRAGS HIS LEFT FOOT. BED AND CHAIR ALARMS IN USE.
--- NOTE | 2022-06-09 12:04 | NUR ---
RN NOTE BLOOD GLUCOSE 415. DR DAWSON NOTIFIED AND HE IS COMING TO ASSESS PT.
--- NOTE | 2022-06-09 17:38 | NUR ---
SHIFT SUMMARY MR LANDIS HAS HAD DIZZYNESS AND HEADACHE ALL DAY TODAY (AREVALO EARLIER WAS RIGHT SIDED, CURRENTLY LEFT SIDED). DISCUSSED WITH DR DAWSON WHEN HE ASSESSED PT EARLIER. BLOOD SUGARS HAVE BEEN HIGH, DOWN TO 207 PRIOR TO SUPPER, BP HAS COME DOWN, NO LONGER ELEVATED. NEURO SYMPTOMS ARE HARD TO ASSESS. HE HAS A HARD TIME WIGGLING HIS TOES AND MOVING HIS ANKLES (BOTH LEFT AND RIGHT) WHEN HE IS IN BED. I ASKED HIM IF HE FEELS LIKE HE IS HAVING DIFFICULTY MOVING THE TOES DUE TO WEAKNESS, OR DIFFICULTY GETTING THE MESSAGE TO THE TOES TO MOVE AND HE THINKS THE LATER, BUT IS HARD TO BE SURE. HE HAS EQUALLY POOR ANKLE AND TOW MOVEMENT LEFT AND RIGHT FEET. 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 ABLE TO TAKE HIS MEDS WHOLE WITHOUT PROBLEMS, ABLE TO LIFT A FULL WATER CUP. ENCOURAGED TO DRINK LESS CAFFEINE AND HYDRATE WITH WATER, BUT HE DOES PREFER COFFEE AND DIET PEPSI. HE REPORTS THAT SPEACH THERAPY WORKED WITH HIM TODAY. HE HAS POOR VISION BUT IS ABLE TO TEXT. BED LOW, CALL LIGHT IN REACH.
--- NOTE | 2022-06-10 05:20 | NUR ---
SALES AND MARKETING EXECUTIVE SUMMARY PT VERY SLEEPY/LETHARGIC THIS SHIFT. REPORTS POOR APPETITE DURING THE DAY AND DECLINED TO EAT MEAL BROUGHT IN BY MOTHER. MEAL AT BEDSIDE UNTIL 0400 BEFORE DISCARDED. PT HS BLOOD SUGAR WAS 157. PT HAS HAD SOME SOFTER BLOOD PRESSURES. RECHECKED AT 2300 BEFORE GIVING BLOOD PRESSURE MEDS; 109/80. PT WAKES EASILY AND RESPONDS APPROPRIATELY BUT RETURNS TO SLEEP VERY QUICKLY. PT NOT USING HIS CALL LIGHT F/NEEDS. CONT W/REGULAR ROUNDING T/O THE SHIFT. CALL LIGHT IN REACH AND BED ALARM SET.
--- NOTE | 2022-06-10 10:43 | NUR ---
LOW BP TALKED WITH DR YANG ABOUT vETERANS LOW BP AND MEDICATIONS BEING HELD. ORDERS RECEIVED. TALKED ABOUT VETERRANS RIGHT SIDED NECK.MUSCLE PAIN. ORDER RECEIVED. CONTINUE POC.
--- NOTE | 2022-06-10 11:44 | NUR ---
ZANAFLEX VETEAN RESTING WITH EYES CLOSED. DID NOT AWAKEN HIM TO GIVE THE ZANAFLEX. WILL WHEN HE AWAKENS NATURALLY. CONTINUE POC.
--- NOTE | 2022-06-10 16:50 | NUR ---
HAS BEEN STRUGGLING WITH A HEADACHE AND NECK SPASM ALL DAY. TRIED HEAT, AND MASSAGE FOR RIGHT SIDED SPASM. IT DID HELP. TALKED WITH DR YANG. ORDER RECEIVED. LATER IN THE DAY, AFTER HIS MOTHER LEFT, HE STARTED SHARING WHAT IS GOING ON. TODAY IS HIS DAUGHTERS 10TH BIRTHDAY-HE FEELS LIKE HE HAS LET HER DOWN. HE LOST CUSTODY OF HER BECAUSE OF THE FIRST CVA WHEN HE COULDN'T ATTEND COURT. HE HAS BEEN INFORMED BY HIS DOCOTRS THAT THE CVA AREN'T GOING TO STOP BECAUSE OF HIS CANCER. HE IS QUESTIONING WHETHER HE WANTS TO KEEP FIGHTING. TALKED WITH HIM ABOUT SOEAKING WITH CHAPLIANS PRIVATELY. HE AGREED. LEFT A VOICE MESSAGE FOR THE TACTICAL RESPONSE GROUP OFFICER SERVICE. AFTER HE SHARED HIS THOUGHTS AND FEELINGS HIS HEADACHE DECREASED AND HE RELAXED A BIT. HIS MOTHER IS SUPPOSED TO BE STOPPING BY THE HOUSE TO SEE WHAT TUMMY PILL THAT HIS PCP STARTED HIM ON BECAUSE IT HURTS WHEN HE EATS. NO PHONE CALL YET. CONTINUE POC.
--- NOTE | 2022-06-11 04:06 | NUR ---
TIPPLE SUPERVISOR SUMMARY NO ACUTE EVENTS. PT DENIES PAIN THIS SHIFT BUT STATES HIS HEAD FEELS FOGGY. PT DENIES NAUSEA. PT SPOKE A LITTLE ABOUT HIS DAUGHTER AGAING THIS SHIFT--SAYS SHE IS SCARED. PT WORRIED ABOUT HER AND CONCERNED FOR HIS FUTURE. PT SBP HAS BEEN CONSISTANTLY ABOVE 100; VSS. VT HAS HAD A POOR APPETITE BUT THIS EVENING TOLERATED A SANDWHICH AND YOGURT. HS BLOOD SUGAR 189. PT IS SLOW T/RESPOND; SPEECH IS PRESSURED/STUTTERED. PT WILL CALL APPROPRIATELY. 1PA T/BR W/FWW AND GAIT BELT. CALL LIGHT IN REACH.
[2022-06-11 04:58] LABS: BASOPHILS ABSOLUTE AUTO 0.04 K/mm3 (0.00-0.23); BASOPHILS PERCENT AUTO 1 % (0-2); EOSINOPHILS ABSOLUTE AUTO 0.12 K/mm3 (0.00-0.68); EOSINOPHILS PERCENT AUTO 2 % (0-6); Hematocrit 46.4 % (37.0-53.0); Hemoglobin 15.7 g/dL (13.5-17.5); IMMATURE GRAN ABSOLUTE AUTO 0.02 K/mm3 (0.00-0.10); IMMATURE GRAN PERCENT AUTO 0 % (0-1); LYMPHOCYTES ABSOLUTE AUTO 3.26 K/mm3 (0.84-5.20); LYMPHOCYTES PERCENT AUTO 45 % (21-46); MONOCYTES ABSOLUTE AUTO 0.67 K/mm3 (0.16-1.47); MONOCYTES PERCENT AUTO 9 % (4-13); Mean Corpuscular HGB 28.3 pg (26.0-34.0); Mean Corpuscular HGB Conc 33.8 g/dL (31.5-36.5); Mean Corpuscular Volume 84 fL (80-100); Mean Platelet Volume 9.5 fL (9.1-12.4); NEUTROPHILS ABSOLUTE AUTO 3.14 K/mm3 (1.96-9.15); NEUTROPHILS PERCENT AUTO 43 % (41-73); Platelet Count 249 K/mm3 (150-400); RDW Coefficient Variation 14.1 % (11.7-14.2); RDW Standard Deviation 43.2 fL (35.1-46.3); Red Blood Cell Count 5.54 M/mm3 (4.30-5.90); White Blood Cell Count 7.25 K/mm3 (4.00-11.30)
[2022-06-11 05:28] LABS: Albumin, Blood 3.1 g/dL (3.4-5.0); Albumin/Globulin Ratio 0.8 (0.8-1.8); Bilirubin, Total 0.4 mg/dL (0.1-1.0); Bun/Creatinine Ratio 22.7 (12.0-20.0); Calcium, Blood 9.2 mg/dL (8.5-10.1); Creatinine, Blood 1.5 mg/dL (0.60-1.20); Globulin, Blood 3.9 g/dL (2.2-4.0); Potassium, Blood 4.1 mmol/L (3.5-5.5)
--- NOTE | 2022-06-11 15:51 | NUR ---
Spiritual Care Consult received and processed. Information gathered from pt's RN, assigned provider and chart notes reviewed. I visit pt who immediately tells me about his mediacal history and what he is facing in the future. He talks about the crazy busy life he once lived with many work hours and many hours volunteering in his community and how his life has been radically changed and how this "hurts." He talks about his spirituality and his Young type belief system. He speaks of the of kindness and compassion and other values he holds. He says, "many of of his beliefs also align with Christianality." He shares about his trust is in his ability to stay positive and find meaning and light even with a known poor medical outcome. He is thoughtful and intentional with his words. Patient talks about the struggles ahead and the huge amount of energy it takes to stay on top of his thoughts. I reinforced helpful attitudes and practices, normalized his experience and provided therapeutic listening, encouragment and preparole counseling aide. Pt responds well and displays eviedence of increased peace. I will continue to remian available to patient and family.
[2022-06-11] MEDS ORDERED: Acetaminophen325 M1 PO (17:44)
[2022-06-11] MEDS ORDERED: HYDR10 PO (17:45)
[2022-06-11] MEDS ORDERED: ATOR80 PO (17:45)
--- NOTE | 2022-06-11 18:58 | NUR ---
SHIFT SUMMARY PT ADMITTED DUE TO AMS DUE TO STROKE. SPEECH REMAINS SLOW AND STUTTERED. PT TO DC HOME WITH MOM AND TO FOLLOW UP WITH PRIMARY CARE AND NEUROLOGY AT [facility]. VSS.
== END 2022-06-11 19:13 | disposition home or self-care (01) | DRG 65 ==
LOC: ER 18:37 → MEDS 06-07 01:21
PROVIDERS: Hospitalist; Physician Assistant; Student in an Organized Health Care Education/Training Program; ADMIT Internal Medicine
DX: I63.9 Cerebral infarction, unspecified (principal); I69.354 Hemiplegia and hemiparesis following cerebral infarction affecting left non-dominant side; N17.9 Acute kidney failure, unspecified; R47.1 Dysarthria and anarthria; I15.2 Hypertension secondary to endocrine disorders; E11.9 Type 2 diabetes mellitus without complications; D45 Polycythemia vera; M62.838 Other muscle spasm; R47.01 Aphasia; F17.210 Nicotine dependence, cigarettes, uncomplicated; Z98.890 Other specified postprocedural states; E78.5 Hyperlipidemia, unspecified; Z79.4 Long term (current) use of insulin; Z79.899 Other long term (current) drug therapy; F32.A Depression, unspecified; F41.9 Anxiety disorder, unspecified; H54.62 Unqualified visual loss, left eye, normal vision right eye; R29.6 Repeated falls
CPT/HCPCS: 36415; 70450; 70551; 71045; 80053; 82947; 83735; 84100; 85025; 92507; 92523; 92610; 93308; 93321; 93880; 97110; 97112; 97116; 97162; 97166; 97530; 97535; 99285-25; A9270; J1650; J1815; J2405; J7030

== ENCOUNTER 2024-01-21 17:40 | Emergency (ER) | payer OTHER ==
[~2024-01-21] VITALS: Ht 185.4 cm; Wt 122.5 kg
[~2024-01-21 17:40] MED LIST changes: +ATOR80 PO; +Acetaminophen325 M1 PO; +Aspir 8181 MG PO; +BISA10S PR; +HYDR10 PO; +Methocarbamol500 MG PO
[2024-01-21 18:11] LABS: BASOPHILS ABSOLUTE AUTO 0.06 K/mm3 (0.00-0.23); BASOPHILS PERCENT AUTO 1 % (0-2); EOSINOPHILS ABSOLUTE AUTO 0.11 K/mm3 (0.00-0.68); EOSINOPHILS PERCENT AUTO 1 % (0-6); Hematocrit 54.3 % (37.0-53.0); Hemoglobin 17.4 g/dL (13.5-17.5); IMMATURE GRAN ABSOLUTE AUTO 0.01 K/mm3 (0.00-0.10); IMMATURE GRAN PERCENT AUTO 0 % (0-1); LYMPHOCYTES ABSOLUTE AUTO 3.39 K/mm3 (0.84-5.20); LYMPHOCYTES PERCENT AUTO 38 % (21-46); MONOCYTES ABSOLUTE AUTO 0.68 K/mm3 (0.16-1.47); MONOCYTES PERCENT AUTO 8 % (4-13); Mean Corpuscular HGB 25.2 pg (26.0-34.0); Mean Corpuscular Volume 79 fL (80-100); Mean Platelet Volume 9.2 fL (9.1-12.4); NEUTROPHILS ABSOLUTE AUTO 4.74 K/mm3 (1.96-9.15); NEUTROPHILS PERCENT AUTO 53 % (41-73); Platelet Count 321 K/mm3 (150-400); RDW Coefficient Variation 16.6 % (11.7-14.2); RDW Standard Deviation 43.1 fL (35.1-46.3); White Blood Cell Count 8.99 K/mm3 (4.00-11.30)
[2024-01-21 18:15] LABS: Base Excess Venous 1.5 mmol/L; Bicarbonate Venous 25.1 mmol/L (24.0-30.0); PCO2 Venous 42.8 mmHg (38-42)
[2024-01-21 18:34] LABS: Albumin, Blood 2.8 g/dL (3.4-5.0); Albumin/Globulin Ratio 0.6 (0.8-1.8); Bilirubin, Total 0.4 mg/dL (0.1-1.0); Bun/Creatinine Ratio 16.9 (12.0-20.0); Calcium, Blood 9.1 mg/dL (8.5-10.1); Creatinine, Blood 1.24 mg/dL (0.60-1.20); Globulin, Blood 4.7 g/dL (2.2-4.0); Potassium, Blood 4.8 mmol/L (3.5-5.5); Total Protein, Blood 7.5 g/dL (6.4-8.2)
[2024-01-21 20:25] LABS: Source, Urine Clean Catch
[2024-01-21] MEDS ORDERED: NS 1,000 ML IV SCH (20:25)
[2024-01-21 20:27] LABS: Appearance, Urine Clear (Clear); Bilirubin, Urine Neg (Neg); Blood, Urine 1+ (Neg); Color, Urine Yellow (P-Yellow); Glucose Qualitative, Urine 4+ (Neg); Ketones, Urine Neg (Neg); Leukocyte Esterase, Urine Neg (Neg); Nitrite, Urine Neg (Neg); Protein, Urine 4+ (Neg); Urobilinogen, Urine NORM (Normal)
[2024-01-21 20:39] LABS: Bacteria Rare /hpf; Hyaline Casts 0-2 /lpf (0-2); Squamous Epithelial Cells Rare /hpf (Few); White Blood Cells, Urine 0-2 /hpf (0-5)
[2024-01-21 21:15] VITALS: BP 160/119
== END 2024-01-21 21:45 | disposition home or self-care (01) ==
LOC: ER 17:40
PROVIDERS: Physician Assistant
DX: E11.65 Type 2 diabetes mellitus with hyperglycemia (principal); I10 Essential (primary) hypertension; F17.290 Nicotine dependence, other tobacco product, uncomplicated; Z79.899 Other long term (current) drug therapy; Z79.4 Long term (current) use of insulin
CPT/HCPCS: 80053; 81001; 82803; 85025; 93005; 93010; 96360; 99285-25; J7030

== ENCOUNTER 2024-06-10 16:36 | Emergency (ER) | payer OTHER ==
[~2024-06-10] VITALS: Ht 185.4 cm; Wt 137.9 kg
[2024-06-10] MEDS ORDERED: LEVETIRACETAM50014 PO (17:47)
[2024-06-10 18:10] LABS: BASOPHILS ABSOLUTE AUTO 0.07 K/mm3 (0.00-0.23); BASOPHILS PERCENT AUTO 1 % (0-2); EOSINOPHILS ABSOLUTE AUTO 0.19 K/mm3 (0.00-0.68); EOSINOPHILS PERCENT AUTO 3 % (0-6); Hematocrit 52.2 % (37.0-53.0); Hemoglobin 17.2 g/dL (13.5-17.5); IMMATURE GRAN ABSOLUTE AUTO 0.02 K/mm3 (0.00-0.10); IMMATURE GRAN PERCENT AUTO 0 % (0-1); LYMPHOCYTES ABSOLUTE AUTO 3.24 K/mm3 (0.84-5.20); LYMPHOCYTES PERCENT AUTO 45 % (21-46); MONOCYTES ABSOLUTE AUTO 0.67 K/mm3 (0.16-1.47); MONOCYTES PERCENT AUTO 9 % (4-13); Mean Corpuscular Volume 82 fL (80-100); Mean Platelet Volume 9.3 fL (9.1-12.4); NEUTROPHILS ABSOLUTE AUTO 2.98 K/mm3 (1.96-9.15); NEUTROPHILS PERCENT AUTO 42 % (41-73); Platelet Count 253 K/mm3 (150-400); RDW Coefficient Variation 16.5 % (11.7-14.2); RDW Standard Deviation 46.3 fL (35.1-46.3); Red Blood Cell Count 6.36 M/mm3 (4.30-5.90); White Blood Cell Count 7.17 K/mm3 (4.00-11.30)
[2024-06-10 18:24] LABS: Albumin, Blood 3.1 g/dL (3.4-5.0); Albumin/Globulin Ratio 0.7 (0.8-1.8); Bilirubin, Total 0.3 mg/dL (0.1-1.0); Bun/Creatinine Ratio 17.3 (12.0-20.0); Calcium, Blood 9.4 mg/dL (8.5-10.1); Creatinine, Blood 1.1 mg/dL (0.60-1.20); Globulin, Blood 4.2 g/dL (2.2-4.0); Total Protein, Blood 7.3 g/dL (6.4-8.2)
[2024-06-10 21:30] VITALS: BP 129/113
[2024-06-10 21:33] LABS: Source, Urine Clean Catch
[2024-06-10 21:37] LABS: Bilirubin, Urine Neg (Neg); Blood, Urine Neg (Neg); Glucose Qualitative, Urine 2+ (Neg); Ketones, Urine Neg (Neg); Leukocyte Esterase, Urine Neg (Neg); Nitrite, Urine Neg (Neg); Protein, Urine 4+ (Neg); Specific Gravity, Urine 1.025 (1.003-1.022); Urobilinogen, Urine NORM (Normal)
[2024-06-10 21:55] LABS: Appearance, Urine Clear (Clear); Color, Urine Yellow (P-Yellow)
[2024-06-10 22:01] LABS: Bacteria Few /hpf; Hyaline Casts 0-2 /lpf (0-2); Red Blood Cells, Urine 0-2 /hpf (0-2); Squamous Epithelial Cells Few /hpf (Few); White Blood Cells, Urine 0-2 /hpf (0-5)
== END 2024-06-10 22:42 | disposition home or self-care (01) ==
LOC: ER 16:36
PROVIDERS: Physician Assistant
DX: R41.82 Altered mental status, unspecified (principal); E11.65 Type 2 diabetes mellitus with hyperglycemia; I10 Essential (primary) hypertension; E78.5 Hyperlipidemia, unspecified; I69.954 Hemiplegia and hemiparesis following unspecified cerebrovascular disease affecting left non-dominant side; F17.210 Nicotine dependence, cigarettes, uncomplicated; F17.290 Nicotine dependence, other tobacco product, uncomplicated; Z79.4 Long term (current) use of insulin; Z79.899 Other long term (current) drug therapy
CPT/HCPCS: 70450; 80053; 81001; 85025; 93005; 93010; 99285-25

== ENCOUNTER 2024-07-31 17:58 | Inpatient (IN) | payer OTHER ==
[~2024-07-31] VITALS: Ht 185.4 cm; Wt 136.6 kg
[~2024-07-31 17:58] MED LIST changes: +LEVETIRACETAM50014 PO
[2024-07-31 18:50] LABS: BASOPHILS ABSOLUTE AUTO 0.03 K/mm3 (0.00-0.23); BASOPHILS PERCENT AUTO 0 % (0-2); EOSINOPHILS ABSOLUTE AUTO 0.18 K/mm3 (0.00-0.68); EOSINOPHILS PERCENT AUTO 2 % (0-6); Hematocrit 51.6 % (37.0-53.0); Hemoglobin 16.9 g/dL (13.5-17.5); IMMATURE GRAN ABSOLUTE AUTO 0.01 K/mm3 (0.00-0.10); IMMATURE GRAN PERCENT AUTO 0 % (0-1); LYMPHOCYTES PERCENT AUTO 39 % (21-46); MONOCYTES ABSOLUTE AUTO 0.58 K/mm3 (0.16-1.47); MONOCYTES PERCENT AUTO 8 % (4-13); Mean Corpuscular HGB 27.1 pg (26.0-34.0); Mean Corpuscular HGB Conc 32.8 g/dL (31.5-36.5); Mean Corpuscular Volume 83 fL (80-100); Mean Platelet Volume 9.4 fL (9.1-12.4); NEUTROPHILS ABSOLUTE AUTO 3.97 K/mm3 (1.96-9.15); NEUTROPHILS PERCENT AUTO 51 % (41-73); Platelet Count 270 K/mm3 (150-400); RDW Coefficient Variation 14.6 % (11.7-14.2); RDW Standard Deviation 43.5 fL (35.1-46.3); Red Blood Cell Count 6.24 M/mm3 (4.30-5.90); White Blood Cell Count 7.77 K/mm3 (4.00-11.30)
[2024-07-31 19:02] LABS: Albumin/Globulin Ratio 0.7 (0.8-1.8); Bilirubin, Total 0.3 mg/dL (0.1-1.0); Bun/Creatinine Ratio 19.5 (12.0-20.0); Calcium, Blood 9.2 mg/dL (8.5-10.1); Creatinine, Blood 1.18 mg/dL (0.60-1.20); Globulin, Blood 4.3 g/dL (2.2-4.0); Total Protein, Blood 7.3 g/dL (6.4-8.2)
[2024-07-31] MEDS ORDERED: Morphine Sulfate 4 MG/1 ML Injection IV ONE ×2 (19:40→21:00)
[2024-07-31] MEDS ORDERED: Ondansetron HCl 2 MG / ML 2ML Vial IV ONE (19:40)
[2024-07-31 21:21] LABS: Source, Urine Clean Catch
[2024-07-31 21:25] LABS: Appearance, Urine Clear (Clear); Bilirubin, Urine Neg (Neg); Blood, Urine Neg (Neg); Glucose Qualitative, Urine 1+ (Neg); Ketones, Urine Neg (Neg); Leukocyte Esterase, Urine Neg (Neg); Nitrite, Urine Neg (Neg); Protein, Urine 3+ (Neg); Urobilinogen, Urine NORM (Normal)
[2024-07-31 21:26] LABS: Color, Urine Pale Yellow (P-Yellow)
[2024-07-31 21:38] LABS: Bacteria Few /hpf; Red Blood Cells, Urine 0-2 /hpf (0-2); Squamous Epithelial Cells Few /hpf (Few); White Blood Cells, Urine 0-2 /hpf (0-5)
[2024-07-31] MEDS ORDERED: NS 1,000 ML IV SCH (22:15)
[2024-07-31] MEDS ORDERED: Ondansetron HCl 2 MG / ML 2ML Vial IV PRN (22:15)
[2024-07-31] MEDS ORDERED: FLU VACC TS2024-25(6MOS UP)/PF 45 MCG/0.5 ML SYRINGE IM ONE (22:20)
[2024-07-31] MEDS ORDERED: FentaNYL Citrate 50 MCG/ML 2 ML Injection IV PRN (22:20)
[2024-07-31] MEDS ORDERED: HYDROmorphone HCl/Pf 1MG SYR IV ONE (22:25)
[2024-07-31] MEDS ORDERED: Lidocaine 2% Jelly Uro-Jet UR ONE (22:25)
[2024-07-31] MEDS ORDERED: Ampicillin Sod/Sulbactam Sod 3 GM in NS 100 ML IV SCH (22:48)
[2024-08-01 05:22] LABS: BASOPHILS ABSOLUTE AUTO 0.04 K/mm3 (0.00-0.23); BASOPHILS PERCENT AUTO 1 % (0-2); EOSINOPHILS ABSOLUTE AUTO 0.04 K/mm3 (0.00-0.68); EOSINOPHILS PERCENT AUTO 1 % (0-6); Hematocrit 49.9 % (37.0-53.0); Hemoglobin 16.2 g/dL (13.5-17.5); IMMATURE GRAN ABSOLUTE AUTO 0.02 K/mm3 (0.00-0.10); IMMATURE GRAN PERCENT AUTO 0 % (0-1); LYMPHOCYTES ABSOLUTE AUTO 1.55 K/mm3 (0.84-5.20); LYMPHOCYTES PERCENT AUTO 19 % (21-46); MONOCYTES ABSOLUTE AUTO 0.63 K/mm3 (0.16-1.47); MONOCYTES PERCENT AUTO 8 % (4-13); Mean Corpuscular HGB 27.2 pg (26.0-34.0); Mean Corpuscular HGB Conc 32.5 g/dL (31.5-36.5); Mean Corpuscular Volume 84 fL (80-100); Mean Platelet Volume 9.5 fL (9.1-12.4); NEUTROPHILS ABSOLUTE AUTO 5.78 K/mm3 (1.96-9.15); NEUTROPHILS PERCENT AUTO 72 % (41-73); Platelet Count 265 K/mm3 (150-400); RDW Coefficient Variation 14.7 % (11.7-14.2); RDW Standard Deviation 44.8 fL (35.1-46.3); Red Blood Cell Count 5.95 M/mm3 (4.30-5.90); White Blood Cell Count 8.06 K/mm3 (4.00-11.30)
[2024-08-01 05:46] LABS: Albumin/Globulin Ratio 0.8 (0.8-1.8); Bilirubin, Total 0.7 mg/dL (0.1-1.0); Bun/Creatinine Ratio 15.5 (12.0-20.0); Calcium, Blood 8.7 mg/dL (8.5-10.1); Creatinine, Blood 1.68 mg/dL (0.60-1.20)
[2024-08-01] MEDS ORDERED: levETIRAcetam 500 MG in NS 100 ML IV SCH (09:00)
[2024-08-01] MEDS ORDERED: Insulin Glargine-Yfgn 100 Unit/mL 3 ML SYR SC SCH (09:00)
[2024-08-01] MEDS ORDERED: Methocarbamol 500 MG Tab PO PRN (10:25)
[2024-08-01] MEDS ORDERED: Acetaminophen 325 MG TABLET PO PRN (10:25)
[2024-08-01] MEDS ORDERED: Bisacodyl 10 MG Supp PR PRN (10:25)
[2024-08-01] MEDS ORDERED: Polyethylene Glycol 3350 17 gm PO PRN (10:35)
[2024-08-01] MEDS ORDERED: Clopidogrel Bisulfate 75 MG Tab PO SCH (11:00)
[2024-08-01] MEDS ORDERED: Lisinopril 20 MG Tab PO SCH (11:00)
[2024-08-01] MEDS ORDERED: Aspirin 81 MG TabEC PO SCH (11:00)
[2024-08-01] MEDS ORDERED: HydroCHLOROthiazide 25 mg Tab PO SCH (11:00)
[2024-08-01] MEDS ORDERED: Atorvastatin 40 MG Tab PO SCH (11:00)
[2024-08-01] MEDS ORDERED: Citalopram Hydrobromide 20 MG Tab PO SCH (11:00)
[2024-08-01 11:25] VITALS: BP 119/83
[2024-08-01] MEDS ORDERED: Insulin Human Lispro 100 Units/ML 3ML Syringe SC SCH (12:00)
--- NOTE | 2024-08-01 12:40 | NUR ---
ARRIVAL TO UNIT AFTER RECEIVING REPORT FROM ED RN, PATIENT TRANSFERRED TO UNIT VIA [facility] AT APPROX 1115. PATIENT ALERT AND ORIENTED X4. HX OF X2 CVAs WITH L SIDED DEFICITS, WEAKNESS - REPORTS MOSTLY USING A WC AT BASELINE. WAS ABLE TO STAND AND PIVOT TRANSFER FROM [facility] TO BED WITH 2P ASSIST - GAIT UNSTEADY. SPEECH SOFT. 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 LIVES IN AN APARTMENT WITH HIS AND A CAREGIVER COMES TO APARTMENT X6 HOURS PER DAY. VSS. TOLERATING ROOM AIR - SATs >90%. RR EVEN, UNLABORED. REPORTS CPAP USE AT NIGHT FOR REECE. REPORTING 8/10 ABD PAIN RADIATING TO BILATERAL FLANK - PLAN TO MEDICATE PER EMAR. ABD FIRM, TENDER. HYPOACTIVE BOWEL TONES. TOLERATING CLEAR LIQUID DIET. IVF INFUSING PER EMAR. SAMSON CATHETER PLACED IN ED FOR RETENTION - DRAINING YELLOW URINE TO GRAVITY. CALL LIGHT IN REACH.
[2024-08-01] MEDS ORDERED: Gabapentin 100 MG Cap PO SCH (14:00)
[2024-08-01 15:57] VITALS: BP 126/86
--- NOTE | 2024-08-01 16:28 | NUR ---
SHIFT SUMMARY NO ACUTE EVENTS SINCE TRANSFER TO UNIT. PATIENT RESTED QUIETLY OR SLEPT T/O AFTERNOON. AT BEDSIDE. VS REMAIN STABLE. SBP 110s-120s. MAP >65. REMAINS ON ROOM AIR, SATs >90%. TOLERATING CLEAR LIQUID DIET. MANAGING ABD PAIN PER EMAR WITH IV FENTANYL. SAMSON CATHETER WITH YELLOW URINE TO GRAVITY. CALL LIGHT IN REACH.
[2024-08-01 19:32] VITALS: BP 126/89
--- NOTE | 2024-08-01 20:43 | NUR ---
PHYSICIAN COMMUNICATION INFORMED DR VALDERRAMA OF PT BASELINE USING CPAP @HS & WOULD LIKE TO USE ONE WHILE BEING AT HOSPIAL. DR VALDERRAMA PLACED CPAP PROTOCAL FOR RT TO ASSESS PT. INFORMED PRIMARY RN.
[2024-08-01] MEDS ORDERED: LevETIRAcetam 500 MG Tab PO SCH (21:00)
[2024-08-02 04:23] VITALS: BP 118/87
[2024-08-02 05:27] LABS: BASOPHILS ABSOLUTE AUTO 0.04 K/mm3 (0.00-0.23); BASOPHILS PERCENT AUTO 1 % (0-2); EOSINOPHILS ABSOLUTE AUTO 0.16 K/mm3 (0.00-0.68); EOSINOPHILS PERCENT AUTO 3 % (0-6); Hematocrit 47.4 % (37.0-53.0); Hemoglobin 15.3 g/dL (13.5-17.5); IMMATURE GRAN ABSOLUTE AUTO 0.01 K/mm3 (0.00-0.10); IMMATURE GRAN PERCENT AUTO 0 % (0-1); LYMPHOCYTES ABSOLUTE AUTO 2.86 K/mm3 (0.84-5.20); LYMPHOCYTES PERCENT AUTO 44 % (21-46); MONOCYTES ABSOLUTE AUTO 0.66 K/mm3 (0.16-1.47); MONOCYTES PERCENT AUTO 10 % (4-13); Mean Corpuscular HGB 27.2 pg (26.0-34.0); Mean Corpuscular HGB Conc 32.3 g/dL (31.5-36.5); Mean Corpuscular Volume 84 fL (80-100); Mean Platelet Volume 9.5 fL (9.1-12.4); NEUTROPHILS ABSOLUTE AUTO 2.78 K/mm3 (1.96-9.15); NEUTROPHILS PERCENT AUTO 43 % (41-73); Platelet Count 231 K/mm3 (150-400); RDW Coefficient Variation 14.6 % (11.7-14.2); RDW Standard Deviation 44.8 fL (35.1-46.3); Red Blood Cell Count 5.62 M/mm3 (4.30-5.90); White Blood Cell Count 6.51 K/mm3 (4.00-11.30)
--- NOTE | 2024-08-02 06:11 | NUR ---
SHIFT SUMMARY NOC. PT ADMIT FOR ACUTE ELODIA. PT AWAITING BED FOR ERCP. PT A/O X4. PT MEDICATED FOR PAIN X2 WITH REPORTED RELIEF OF SX. PT'S SAMSON PATENT AND DRAINING TO GRAVITY. NEW ORDERS RECIEVED FOR ACHS BLOOD SUGARS, UPDATED EMAR. S.O. AT BEDSIDE T/O THE NIGHT. CALL LIGHT IN REACH.
[2024-08-02 06:18] LABS: Albumin, Blood 2.8 g/dL (3.4-5.0); Albumin/Globulin Ratio 0.7 (0.8-1.8); Bilirubin, Total 0.6 mg/dL (0.1-1.0); Bun/Creatinine Ratio 14.6 (12.0-20.0); Calcium, Blood 8.2 mg/dL (8.5-10.1); Creatinine, Blood 1.51 mg/dL (0.60-1.20); Globulin, Blood 3.8 g/dL (2.2-4.0); Potassium, Blood 4.2 mmol/L (3.5-5.5); Total Protein, Blood 6.6 g/dL (6.4-8.2)
[2024-08-02 07:14] VITALS: BP 126/75
[2024-08-02] MEDS ORDERED: Insulin Human Lispro 100 Units/ML 3ML Syringe SC SCH (07:30)
[2024-08-02] MEDS ORDERED: HYDROcodone 5-APAP 325 TAB PO PRN (09:35)
--- NOTE | 2024-08-02 10:13 | NUR ---
MORNING NOTE THIS RN ASSUMED CARE AT APPROX 0715. PATIENT ALERT AND ORIENTED X4. L SIDED WEAKNESS, SOFT SPEECH - HX OF X2 CVAs. COMMUNICATING NEEDS EFFECTIVELY. AT BEDSIDE ASSISTING WITH CARE. VSS. SBP 120s. MAP >65. ON ROOM AIR WHILE AWAKE, SATs >90%. USES CPAP WITH SLEEP. CONTINUOUS PULSE OX IN PLACE. TOLERATING CLEAR LIQUID DIET - DECREASED APPETITE NOTED THIS MORNING. PAIN 10/10 THIS MORNING DESPITE IV FENTANYL ADMINISTRATION PRIOR TO ASSUMPTION OF CARE - DISCUSSED PO MEDICATION WITH MD WHILE ROUNDING. ORDER FOR PO NORCO NOW IN PLACE - ADMINISTERED PER EMAR. SAMSON CATHETER IN PLACE DRAINING YELLOW URINE TO GRAVITY. CALL LIGHT IN REACH.
--- NOTE | 2024-08-02 14:11 | NUR ---
MARIO PIERCE CONTACTED [facility] ETA. AT THIS TIME PT HAS BEEN ACCEPTED BUT NO ETA ON BED AVAILIBILITY.
[2024-08-02 14:14] VITALS: BP 132/78
--- NOTE | 2024-08-02 16:19 | NUR ---
SHIFT SUMMARY NO ACUTE CHANGES SINCE MORNING NOTE. PATIENT REMAINS ALERT AND ORIENTED X4. SLEPT THROUGHOUT DAY - EASILY AROUSABLE WITH VERBAL STIMULI. VSS. SBP 120s-130s. MAP >65. ON ROOM AIR THROUGHOUT DAY, SATs >90%. DECLINED USE OF CPAP WITH SLEEP. CONTINUOUS PULSE OX IN PLACE. MANAGING ABD PAIN PER EMAR. TOLERATING CLEAR LIQUID DIET - DECREASED APPETITE NOTED. AWAITING BED PLACEMENT FOR ERCP AT [facility]. SAMSON CATHETER IN PLACE DRAINING YELLOW URINE TO GRAVITY. BED BATH COMPLETED TODAY. AT BEDSIDE. CALL LIGHT IN REACH.
[2024-08-02 18:25] VITALS: BP 103/71
[2024-08-02 20:30] VITALS: BP 123/93
[2024-08-02] MEDS ORDERED: NS 250 ML IV PRN (23:25)
[2024-08-03 04:09] VITALS: BP 140/98
[2024-08-03 05:16] LABS: BASOPHILS ABSOLUTE AUTO 0.03 K/mm3 (0.00-0.23); BASOPHILS PERCENT AUTO 1 % (0-2); EOSINOPHILS ABSOLUTE AUTO 0.17 K/mm3 (0.00-0.68); EOSINOPHILS PERCENT AUTO 3 % (0-6); Hematocrit 48.1 % (37.0-53.0); Hemoglobin 15.7 g/dL (13.5-17.5); IMMATURE GRAN PERCENT AUTO 0 % (0-1); LYMPHOCYTES ABSOLUTE AUTO 2.32 K/mm3 (0.84-5.20); LYMPHOCYTES PERCENT AUTO 36 % (21-46); MONOCYTES ABSOLUTE AUTO 0.71 K/mm3 (0.16-1.47); MONOCYTES PERCENT AUTO 11 % (4-13); Mean Corpuscular HGB 27.3 pg (26.0-34.0); Mean Corpuscular HGB Conc 32.6 g/dL (31.5-36.5); Mean Corpuscular Volume 84 fL (80-100); Mean Platelet Volume 9.6 fL (9.1-12.4); NEUTROPHILS ABSOLUTE AUTO 3.23 K/mm3 (1.96-9.15); NEUTROPHILS PERCENT AUTO 50 % (41-73); Platelet Count 222 K/mm3 (150-400); RDW Coefficient Variation 14.5 % (11.7-14.2); RDW Standard Deviation 43.8 fL (35.1-46.3); Red Blood Cell Count 5.75 M/mm3 (4.30-5.90); White Blood Cell Count 6.46 K/mm3 (4.00-11.30)
--- NOTE | 2024-08-03 05:38 | NUR ---
SHIFT SUMMARY NOC. PT ADMIT FOR ACUTE ELODIA. PT C/O ABDOMINAL PAIN AND CHRONIC BACK PAIN. PT MEDICATED WITH NORCO X2, METHOCARBAMOL X2, AND FENTANYL X1. PT REPORTS SOME RELIEF WITH PAIN MEDS. PT'S SAMSON PATENT AND DRAINING TO GRAVITY. PT TOLERATING CLEAR LIQUID DIET, BUT REPORTS "HUNGER PAINS". PT'S LONG ACTING INSULIN HELD D/T BS OF 112MG/DL AT BEDTIME (DISCUSSED WITH JOB CHANGE CREW MEMBER). S.O. AT BEDSIDE T/O THE NIGHT. CALL LIGHT IN REACH.
[2024-08-03 05:41] LABS: Albumin, Blood 2.8 g/dL (3.4-5.0); Albumin/Globulin Ratio 0.7 (0.8-1.8); Bilirubin, Total 0.7 mg/dL (0.1-1.0); Bun/Creatinine Ratio 13.8 (12.0-20.0); Calcium, Blood 8.7 mg/dL (8.5-10.1); Creatinine, Blood 1.09 mg/dL (0.60-1.20); Globulin, Blood 3.9 g/dL (2.2-4.0); Potassium, Blood 3.8 mmol/L (3.5-5.5); Total Protein, Blood 6.7 g/dL (6.4-8.2)
[2024-08-03 07:16] VITALS: BP 128/96
[2024-08-03 15:47] VITALS: BP 125/93
--- NOTE | 2024-08-03 17:51 | NUR ---
SHIFT SUMMARY HAS DONE OK THIS SHIFT. PAINFUL BUT DENIES N/V AFTER ADVANCING DIET. JASON ROMANAKI CALLED x 2, STILL ON LIST. REPOSITIONS SELF w/ HELP FROM SPOUSE PER THEIR CHOICE. PAIN MEDS, IVX ABX GIVEN T/O SHIFT.
--- NOTE | 2024-08-03 18:41 | NUR ---
PT TRANSFERRED TO MEDICAL FLOOR VIA HOSPITAL BED @ 1840, PT AND FAMILY ORIENTED TO ROOM, CALL LIGHT WITHIN REACH. A WATER AND DIET PEPSI PROVIDED PER PT REQUEST. PT REPORTS BACK PAIN, TREATED PER EMAR.
--- NOTE | 2024-08-03 20:51 | NUR ---
[facility] [place] UPDATE: [facility] [place] [facility] TO UPDATE ON PT NEW ROOM ASSIGNMENT AND CONFIRM THAT PT IS STILL ON THE TX WAITLIST. CONFIRMED PT IS STILL NEEDING TO BE TX AND IS STILL ON THE WAITLIST. GAVE NEW ROOM # AND MEDICAL FLOOR NURSE STATION PHONE # TO COORDINATOR. PER COORDINATOR, POSSIBLE THAT BED WILL BECOME AVAILABLE TOMORROW 08/04/24. MEDICAL FLOOR MANAGER INTERFACEWILBUR [place]. UPDATED.
[2024-08-03 21:24] VITALS: BP 109/74
[2024-08-04 02:33] VITALS: BP 132/98
[2024-08-04 03:00] VITALS: BP 132/98
[2024-08-04 03:19] VITALS: BP 132/98
--- NOTE | 2024-08-04 03:23 | NUR ---
SHIFT SUMMARY/TRANSFERRING TO [facility] PT IS A/O X 4, SAMSON WITH GOOD OUTPUT (ACUTE FOR RETENTION). HS B. VSS. ON RA, REFUSED C-PAP DURING NIGHT HRS. @0322 REPORT CALLED TO REESE AT [facility]. HAIR MACHINE OPERATOR NOTIFIED. NO ACUTE EVENTS DURING THIS SHIFT. BED AT THE LOWEST POSITION, CALL LIGHT W/I REACH. PT IS ABLE TO MAKE HIS NEEDS KNOWN AND HAS BEEN COOPERATIVE WITH CARE.
[2024-08-04 05:55] LABS: BASOPHILS ABSOLUTE AUTO 0.04 K/mm3 (0.00-0.23); BASOPHILS PERCENT AUTO 1 % (0-2); EOSINOPHILS ABSOLUTE AUTO 0.23 K/mm3 (0.00-0.68); EOSINOPHILS PERCENT AUTO 4 % (0-6); Hematocrit 48.3 % (37.0-53.0); Hemoglobin 15.8 g/dL (13.5-17.5); IMMATURE GRAN ABSOLUTE AUTO 0.02 K/mm3 (0.00-0.10); IMMATURE GRAN PERCENT AUTO 0 % (0-1); LYMPHOCYTES ABSOLUTE AUTO 1.89 K/mm3 (0.84-5.20); LYMPHOCYTES PERCENT AUTO 29 % (21-46); MONOCYTES PERCENT AUTO 11 % (4-13); Mean Corpuscular HGB Conc 32.7 g/dL (31.5-36.5); Mean Corpuscular Volume 83 fL (80-100); Mean Platelet Volume 9.4 fL (9.1-12.4); NEUTROPHILS ABSOLUTE AUTO 3.73 K/mm3 (1.96-9.15); NEUTROPHILS PERCENT AUTO 56 % (41-73); Platelet Count 233 K/mm3 (150-400); RDW Coefficient Variation 14.1 % (11.7-14.2); RDW Standard Deviation 42.6 fL (35.1-46.3); Red Blood Cell Count 5.85 M/mm3 (4.30-5.90); White Blood Cell Count 6.61 K/mm3 (4.00-11.30)
[2024-08-04 06:12] LABS: Albumin, Blood 2.9 g/dL (3.4-5.0); Albumin/Globulin Ratio 0.7 (0.8-1.8); Bilirubin, Total 0.5 mg/dL (0.1-1.0); Bun/Creatinine Ratio 14.5 (12.0-20.0); Calcium, Blood 8.7 mg/dL (8.5-10.1); Creatinine, Blood 1.1 mg/dL (0.60-1.20); Globulin, Blood 4.1 g/dL (2.2-4.0)
== END 2024-08-04 05:51 | disposition short-term general hospital (02) | DRG 445 ==
LOC: ER 17:58 → SURS 17:59 → ERHOLD 17:59 → SURS 22:13 → MEDS 08-03 18:31
PROVIDERS: Student in an Organized Health Care Education/Training Program; ADMIT Internal Medicine
DX: K80.50 Calculus of bile duct without cholangitis or cholecystitis without obstruction (principal); J98.11 Atelectasis; N17.9 Acute kidney failure, unspecified; Z68.41 Body mass index [BMI] 40.0-44.9, adult; Z28.21 Immunization not carried out because of patient refusal; I10 Essential (primary) hypertension; E11.9 Type 2 diabetes mellitus without complications; E78.5 Hyperlipidemia, unspecified; K59.00 Constipation, unspecified; D75.1 Secondary polycythemia; G40.909 Epilepsy, unspecified, not intractable, without status epilepticus; E66.9 Obesity, unspecified; F17.210 Nicotine dependence, cigarettes, uncomplicated; F17.290 Nicotine dependence, other tobacco product, uncomplicated; Z79.82 Long term (current) use of aspirin; Z79.899 Other long term (current) drug therapy; Z79.02 Long term (current) use of antithrombotics/antiplatelets; N31.9 Neuromuscular dysfunction of bladder, unspecified; Z79.4 Long term (current) use of insulin
CPT/HCPCS: 36415; 51702; 51798; 74177; 80053; 81001; 82947; 83690; 83880; 85025; 94660; 94762; 96365; 96366; 96375; 96376; 99285-25; A9270; G0378; J0295; J1171; J1815; J1953; J2270; J2405; J3010; J7030; J7050; Q9967

== ENCOUNTER 2024-09-24 18:22 | Emergency (ER) | payer OTHER, MEDICARE ==
[~2024-09-24] VITALS: Ht 185.4 cm; Wt 136.1 kg
[2024-09-24] MEDS ORDERED: Morphine Sulfate 4 MG/1 ML Injection IV ONE (19:45)
[2024-09-24 19:46] LABS: BASOPHILS ABSOLUTE AUTO 0.05 K/mm3 (0.00-0.23); BASOPHILS PERCENT AUTO 1 % (0-2); EOSINOPHILS ABSOLUTE AUTO 0.25 K/mm3 (0.00-0.68); EOSINOPHILS PERCENT AUTO 3 % (0-6); Hematocrit 46.8 % (37.0-53.0); Hemoglobin 15.5 g/dL (13.5-17.5); IMMATURE GRAN ABSOLUTE AUTO 0.01 K/mm3 (0.00-0.10); IMMATURE GRAN PERCENT AUTO 0 % (0-1); LYMPHOCYTES ABSOLUTE AUTO 3.37 K/mm3 (0.84-5.20); LYMPHOCYTES PERCENT AUTO 43 % (21-46); MONOCYTES ABSOLUTE AUTO 0.69 K/mm3 (0.16-1.47); MONOCYTES PERCENT AUTO 9 % (4-13); Mean Corpuscular HGB 27.6 pg (26.0-34.0); Mean Corpuscular HGB Conc 33.1 g/dL (31.5-36.5); Mean Corpuscular Volume 83 fL (80-100); Mean Platelet Volume 9.7 fL (9.1-12.4); NEUTROPHILS ABSOLUTE AUTO 3.43 K/mm3 (1.96-9.15); NEUTROPHILS PERCENT AUTO 44 % (41-73); Platelet Count 258 K/mm3 (150-400); RDW Coefficient Variation 14.7 % (11.7-14.2); RDW Standard Deviation 44.5 fL (35.1-46.3); Red Blood Cell Count 5.62 M/mm3 (4.30-5.90)
[2024-09-24 20:22] LABS: Free Thyroxine 1.06 ng/dL (0.70-1.60); Magnesium, Blood 2.3 mg/dL (1.6-2.4)
[2024-09-24 20:33] LABS: Thyroid Stimulating Hormone 0.679 uIU/mL (0.360-4.800)
[2024-09-24 20:43] LABS: Bun/Creatinine Ratio 24.7 (12.0-20.0); Calcium, Blood 8.8 mg/dL (8.5-10.1); Creatinine, Blood 1.46 mg/dL (0.60-1.20); Potassium, Blood 4.6 mmol/L (3.5-5.5)
[2024-09-24] MEDS ORDERED: ACET500 PO (21:23)
[2024-09-24 21:45] VITALS: BP 120/89
== END 2024-09-24 21:45 | disposition home or self-care (01) ==
LOC: ER 18:22
PROVIDERS: Emergency Medicine
DX: M25.551 Pain in right hip (principal); R94.4 Abnormal results of kidney function studies; I69.354 Hemiplegia and hemiparesis following cerebral infarction affecting left non-dominant side; I10 Essential (primary) hypertension; E11.9 Type 2 diabetes mellitus without complications; E78.5 Hyperlipidemia, unspecified; F17.210 Nicotine dependence, cigarettes, uncomplicated; F17.290 Nicotine dependence, other tobacco product, uncomplicated; Z79.82 Long term (current) use of aspirin; Z79.01 Long term (current) use of anticoagulants; Z79.4 Long term (current) use of insulin; Z79.899 Other long term (current) drug therapy; W18.30XA Fall on same level, unspecified, initial encounter
CPT/HCPCS: 70450; 71045; 72125; 73502; 74177; 80048; 83735; 84439; 84443; 85025; 93005; 93010; 96374-59; 99285-25; J2270; Q9967

== ENCOUNTER 2024-11-26 12:41 | Day surgery (SDC) | payer MEDICARE, OTHER ==
[~2024-11-26] VITALS: Ht 177.8 cm; Wt 133.4 kg
[~2024-11-26 12:41] MED LIST changes: +ACET500 PO; +SILD50TA PO; +SUMA25 PO; +TRAZ100 PO
[2024-11-26] MEDS ORDERED: MELO7.5 PO (13:44)
[2024-11-26] MEDS ORDERED: MELATONIN5 M1 PO (13:45)
[2024-11-26 13:55] VITALS: BP 135/105
[2024-11-26] MEDS ORDERED: FentaNYL Citrate 50 MCG/ML 2 ML Injection ONE ×2 (16:31→17:00)
[2024-11-26] MEDS ORDERED: Midazolam HCl 1MG / ML 2ML Vial ONE ×2 (16:31→17:00)
[2024-11-26] MEDS ORDERED: NS 1,000 ML IV ONE (16:31)
[2024-11-26 17:28] VITALS: BP 137/124
[2024-11-26 17:30] VITALS: BP 121/92
--- NOTE | 2024-11-26 17:37 | NUR ---
PT BACK TO RECOVERY ROOM. SAMSON CATHETER REMOVED IN LAB, SUPRAPUBIC DRAINING TO CLEAR YELLOW URINE TO GRAVITY. PT S/O AT BEDSIDE. VSS.
[2024-11-26 17:45] VITALS: BP 133/94
[2024-11-26 18:00] VITALS: BP 132/94
--- NOTE | 2024-11-26 18:17 | NUR ---
pt able to stand and get dressed with assistance. discharge instructions reviewed. along with follow up. no further questions at this time. vss remain stable. iv removed catheter intact. pt discharged to home.
[2024-12-20] MEDS ORDERED: JARDIANCE25 MG PO (13:41)
[2024-12-20] MEDS ORDERED: Cyclobenzaprine5 MG PO (13:42)
[2024-12-20] MEDS ORDERED: STEGLATRO5 MG PO (13:42)
[2024-12-20] MEDS ORDERED: AMLO5 PO (13:42)
[2024-12-20] MEDS ORDERED: FISH OIL 1,0001 EA10 (13:43)
[2024-12-20] MEDS ORDERED: SENN187 PO (13:43)
[2024-12-20] MEDS ORDERED: PROBIOTIC1 EA15 PO (13:43)
[2024-12-20] MEDS ORDERED: DERMACINRX FOL1 EAC2 PO (13:43)
[2024-12-20] MEDS ORDERED: CENTRUM SILVER1 EAC2 PO (13:44)
[2024-12-20] MEDS ORDERED: APPLE CIDER VI1 EAC2 PO (13:44)
[2024-12-20] MEDS ORDERED: HUMALOG JU100 UNIT/2 SC (15:28)
[2024-12-20] MEDS ORDERED: GLIP5 PO (15:29)
[2024-12-20] MEDS ORDERED: SEMGLEE (Y100 UNIT/2 SC (15:29)
[2024-12-21] MEDS ORDERED: LEVO750 PO (15:34)
[2024-12-21] MEDS ORDERED: METO25ER PO (15:36)
== END 2024-11-26 18:00 | disposition home or self-care (01) ==
LOC: MHTC 12:41
DX: N31.9 Neuromuscular dysfunction of bladder, unspecified (principal); N13.9 Obstructive and reflux uropathy, unspecified; R33.9 Retention of urine, unspecified; E11.22 Type 2 diabetes mellitus with diabetic chronic kidney disease; I12.9 Hypertensive chronic kidney disease with stage 1 through stage 4 chronic kidney disease, or unspecified chronic kidney disease; N18.2 Chronic kidney disease, stage 2 (mild); E78.5 Hyperlipidemia, unspecified; F17.290 Nicotine dependence, other tobacco product, uncomplicated; Z79.899 Other long term (current) drug therapy
CPT/HCPCS: 51102; 76937; 77002; 99152; 99153; C1729; C1769; J2250; J3010; J7030; Q9967

== ENCOUNTER 2025-01-27 21:42 | Observation (INO) | payer MEDICARE, OTHER ==
[~2025-01-27] VITALS: Ht 185.4 cm; Wt 133.8 kg
[~2025-01-27 21:42] MED LIST changes: +AMLO5 PO; +APPLE CIDER VI1 EAC2 PO; +CENTRUM SILVER1 EAC2 PO; +Cyclobenzaprine5 MG PO; +FISH OIL 1,0001 EA10; +GLIP5 PO; +HUMALOG JU100 UNIT/2 SC; +JARDIANCE25 MG PO; +LEVO750 PO; +MELATONIN5 M1 PO; +MELO7.5 PO; +METO25ER PO; +PROBIOTIC1 EA15 PO; +SEMGLEE (Y100 UNIT/2 SC; +SENN187 PO; +STEGLATRO5 MG PO; +VITAMIN D5000 UNIT PO
[2025-01-27 22:44] LABS: Source, Urine Clean Catch
[2025-01-27] MEDS ORDERED: Prochlorperazine Edisylate 10 mg Vial IV ONE (22:50)
[2025-01-27] MEDS ORDERED: DiphenhydrAMINE HCl 50 MG/ML 1ML Vial IV ONE (22:50)
[2025-01-27] MEDS ORDERED: NS 1,000 ML IV SCH (22:55)
[2025-01-27 22:58] LABS: Bilirubin, Urine Neg (Neg); Glucose Qualitative, Urine 4+ (Neg); Ketones, Urine 1+ (Neg); Leukocyte Esterase, Urine Neg (Neg); Protein, Urine 3+ (Neg); Specific Gravity, Urine 1.020 (1.003-1.022); Urobilinogen, Urine NORM (Normal)
[2025-01-27 23:14] LABS: BASOPHILS ABSOLUTE AUTO 0.08 K/mm3 (0.00-0.23); BASOPHILS PERCENT AUTO 1 % (0-2); EOSINOPHILS ABSOLUTE AUTO 0.53 K/mm3 (0.00-0.68); EOSINOPHILS PERCENT AUTO 7 % (0-6); Hematocrit 54.4 % (37.0-53.0); Hemoglobin 17.5 g/dL (13.5-17.5); IMMATURE GRAN ABSOLUTE AUTO 0.04 K/mm3 (0.00-0.10); IMMATURE GRAN PERCENT AUTO 1 % (0-1); LYMPHOCYTES ABSOLUTE AUTO 3.06 K/mm3 (0.84-5.20); LYMPHOCYTES PERCENT AUTO 38 % (21-46); MONOCYTES ABSOLUTE AUTO 0.66 K/mm3 (0.16-1.47); MONOCYTES PERCENT AUTO 8 % (4-13); Mean Corpuscular HGB Conc 32.2 g/dL (31.5-36.5); Mean Corpuscular Volume 80 fL (80-100); NEUTROPHILS ABSOLUTE AUTO 3.80 K/mm3 (1.96-9.15); NEUTROPHILS PERCENT AUTO 46 % (41-73); NRBC ABSOLUTE 0.00 K/mm3 (0.00-0.02); NRBC Auto 0.0 /100 WBC (0.0-0.2); RDW Coefficient Variation 15.9 % (11.7-14.2); RDW Standard Deviation 42.7 fL (35.1-46.3)
[2025-01-27 23:17] LABS: Ethanol (Alcohol), Blood, Med <3 mg/dL; Salicylate 1.8 mg/dL (2.8-20.0)
[2025-01-27 23:22] LABS: Color, Urine Pale Yellow (P-Yellow)
[2025-01-27 23:23] LABS: Red Blood Cells, Urine 25-50 /hpf (0-2); U Amphetamine Screen Not Detected; U Barbituate Screen Not Detected; U Benzodiazapine Screen Not Detected; U Buprenorphine Screen Not Detected; U Cannabinoids Screen Not Detected; U Cocaine Screen Not Detected; U Methadone Screen Not Detected; U Methamphetamine Screen Not Detected; U Opiates Screen Not Detected; U Oxycodone Screen Not Detected; U Phencyclidine Screen Not Detected; White Blood Cells, Urine 0-2 /hpf (0-5)
[2025-01-27 23:25] LABS: Alanine Aminotransfer (ALT/SGP 48 U/L (12-78); Albumin, Blood 2.9 g/dL (3.4-5.0); Albumin/Globulin Ratio 0.7 (0.8-1.8); Anion Gap 11 mmol/L (3-11); Aspartate Aminotrans (AST/SGOT 27 U/L (12-37); Bilirubin, Total 0.4 mg/dL (0.1-1.0); Blood Urea Nitrogen 19 mg/dL (8-24); CO2, Blood 20 mmol/L (21-32); Calcium, Blood 8.6 mg/dL (8.5-10.1); Chloride, Blood 108 mmol/L (98-108); Creatinine, Blood 1.06 mg/dL (0.60-1.20); Globulin, Blood 4.4 g/dL (2.2-4.0); Glucose, Blood 144 mg/dL (70-99); Potassium, Blood 4.0 mmol/L (3.5-5.5); Sodium, Blood 135 mmol/L (136-145); Total Protein, Blood 7.3 g/dL (6.4-8.2)
[2025-01-27 23:26] LABS: Acetaminophen, Random <2.0 ug/mL (10.0-30.0)
[2025-01-27 23:33] LABS: Platelet Count 238 K/mm3 (150-400)
[2025-01-28] MEDS ORDERED: CefTRIAXone Sodium 2,000 MG in NS 100 ML IV ONE (01:05)
[2025-01-28] MEDS ORDERED: Ketorolac Tromethamine 15mg Vial IV ONE (01:20)
[2025-01-28] MEDS ORDERED: Magnesium Hydroxide Conc 10 ML UDC PO PRN (02:50)
[2025-01-28] MEDS ORDERED: Metoclopramide HCl 5MG / ML 2ML Vial IV PRN (02:50)
[2025-01-28] MEDS ORDERED: PILOCARPINE 2% BOTHEYES STA (03:11)
[2025-01-28] MEDS ORDERED: OPTH BOTHEYES STA (03:11)
[2025-01-28] MEDS ORDERED: Alphagan P5 ML LEFTEYE (04:32)
[2025-01-28] MEDS ORDERED: TIMDOROPSO LEFTEYE (04:32)
[2025-01-28] MEDS ORDERED: PILOCARPINE 2% LEFTEYE STA (04:35)
[2025-01-28] MEDS ORDERED: OPTH LEFTEYE STA (04:35)
[2025-01-28 06:24] VITALS: BP 148/109
[2025-01-28] MEDS ORDERED: Insulin Human Lispro 100 Units/ML 3ML Syringe SC SCH ×2 (07:30→08:00)
[2025-01-28 07:46] VITALS: BP 122/86
--- NOTE | 2025-01-28 08:02 | NUR ---
SHIFT SUMMARY ARRIVED AT 0405 WITH SEVERE MIGRAINE. PT MEDICATED PER EMAR UPON ARRIVAL. PT GIRLFRIEND IS IN ROOM KEEPS ANSWERING QUESTIONS FOR PT. HE IS BLIND IN HIS LEFT EYE AND MOSTLY BLIND IN THE RIGHT EYE. HE USES CPAP AT NIGHT. HAS A SUPRAPUBIC CATHETER. IS ON TELE. PT HAS BEEN PLEASANT AND COOPERATIVE WITH CARE.
[2025-01-28] MEDS ORDERED: Enoxaparin 40 MG/0.4 ML SYR SC SCH (09:00)
--- NOTE | 2025-01-28 09:00 | NUR ---
Pt laying in bed with eyes closed, wakes easily, s.o. in room, pt has flat affect but is cooperative with care, follows commands well, refused breakfast only drank coffee, lungs are clear in upper redd, dim in bases, resp even and unlabored, no cough noted, hrr, distant sounds, no edema noted, ppp+2, cap refill<3 sec, vs stable, afebrile, piv to rac site is clear and patent, btx4, abd flat soft nontender, voids via suprapubic cath draining yellow urine, skin c/w/d, has left side deficit, legs spasm at times, swallows po meds without diff, blind in left eye, call ilght in reach.
[2025-01-28] MEDS ORDERED: Brimonidine Tartrate 0.2% Opth 5 ml BOTHEYES SCH ×2 (14:00→21:00)
[2025-01-28] MEDS ORDERED: ACET500 PO (14:18)
[2025-01-28] MEDS ORDERED: BRIMONIDINE TART5 M3 LEFTEYE (14:18)
[2025-01-28] MEDS ORDERED: METOPROLOL TART25 MG PO (14:20)
[2025-01-28] MEDS ORDERED: GABAPENTIN600 MG PO (14:20)
[2025-01-28] MEDS ORDERED: PLAVIX75 MG PO (14:23)
--- NOTE | 2025-01-28 19:18 | NUR ---
pt remains with flat affect, called Dr. Jacinto for pain meds, recieved order for tramadol, did not want dinner, but later agreed to drink an ensure. has had h/a all day, no acute changes this shift. call light in reach.
[2025-01-28 20:14] VITALS: BP 141/102
[2025-01-28] MEDS ORDERED: Insulin Glargine-Yfgn 100 Unit/mL 3 ML SYR SC SCH (21:00)
[2025-01-28] MEDS ORDERED: Dorzolamide/Timolol Opth Soln 10 ML BOTHEYES SCH (21:00)
[2025-01-29 01:04] VITALS: BP 135/101
[2025-01-29] MEDS ORDERED: FentaNYL Citrate 50 MCG/ML 2 ML Injection IV PRN (03:50)
[2025-01-29 05:03] VITALS: BP 148/110
--- NOTE | 2025-01-29 06:39 | NUR ---
HOOP EXPANDER SUMMARY NO ACUTE CHANGES OVERNIGHT. PT'S SO AT BEDSIDE T/O THE NIGHT. PT REMAINS WITH FLAT AFFECT. SPEECH IS MUMBLED. PT REPORTS 8/10-10/10 PAIN IN LEFT EYE AND RADIATING TO TEETH. PT GIVEN TRAMADOL TWICE AND NOW HAS ORDER FOR FENTANYL Q4 PRN. PT HOME MED REC HAS BEEN COMPLETED AND SOME REMAINING HOME MEDICATIONS NEED TO BE ORDERED. PT NOTED HAVING ELEVATED DIASTOLIC BLOOD PRESSUE. CALL LIGHT ACCESSIBLE. REGULAR ROUNDING COMPLETED EVERY 1-2 HOURS T/O GHT NIGHT. CARE WILL CONTINUE UNTIL REPORT GIVEN TO ONCOMING NURSE.
[2025-01-29 08:02] VITALS: BP 143/95
--- NOTE | 2025-01-29 11:05 | NUR ---
DR HOLLAND REQUEST DR WDAE SEE PT PRIOR TO D.C PLAN FOR TODAY. CALLED DR WADE, HE TO SEE PT LATER TODAY
[2025-01-29 13:04] VITALS: BP 136/105
[2025-01-29] MEDS ORDERED: TRAM50 PO (13:46)
[2025-01-29] MEDS ORDERED: ACET250 PO (13:46)
[2025-01-29] MEDS ORDERED: AMOCLA875 PO (13:47)
--- NOTE | 2025-01-29 16:12 | NUR ---
DISCHARGED @ 1603 W/WHEELTRANSPORT @ 1603, IV & TELE REMOVED, ALL BELONGINGS SENT W/PATIENT
--- NOTE | 2025-01-29 16:19 | NUR ---
1515 DISCAHARGE REVIEWED WITH PT AND SPOUSE.. VERBALIZED UNDERSTANDING OF MEDS AND INST/ HANDED PHYSICAL RX. PENDING TRANSPORT.
[2025-01-30] MEDS ORDERED: Cholecalciferol 1000 Unit Tablet (=25MCG) PO SCH (09:00)
== END 2025-01-29 16:20 | disposition home or self-care (01) ==
LOC: ER 21:42 → MEDS 21:43 → ENPENDDIS 01-29 16:54
PROVIDERS: Student in an Organized Health Care Education/Training Program; ADMIT Internal Medicine
DX: H40.20X0 Unspecified primary angle-closure glaucoma, stage unspecified (principal); H57.12 Ocular pain, left eye; H54.3 Unqualified visual loss, both eyes; I10 Essential (primary) hypertension; D45 Polycythemia vera; I69.354 Hemiplegia and hemiparesis following cerebral infarction affecting left non-dominant side; I69.320 Aphasia following cerebral infarction; E11.9 Type 2 diabetes mellitus without complications; E78.5 Hyperlipidemia, unspecified; I25.10 Atherosclerotic heart disease of native coronary artery without angina pectoris; G40.909 Epilepsy, unspecified, not intractable, without status epilepticus; G08 Intracranial and intraspinal phlebitis and thrombophlebitis; F17.210 Nicotine dependence, cigarettes, uncomplicated; F17.290 Nicotine dependence, other tobacco product, uncomplicated; Z79.4 Long term (current) use of insulin; Z79.82 Long term (current) use of aspirin; Z79.84 Long term (current) use of oral hypoglycemic drugs; Z79.899 Other long term (current) drug therapy; Z95.5 Presence of coronary angioplasty implant and graft
CPT/HCPCS: 36415; 70450; 70496; 70498; 80053; 80320; 81001; 82947; 83036; 83880; 85025; 87077; 87086; 87186; 93005; 93010; 94660; 94762; 96365; 96372; 96375; 96375-59; 99285-25; A9270; G0378; G0480; J0696; J0780; J1200; J1650; J1815; J1885; J3010; J7030; Q9967

== ENCOUNTER → 2025-02-25 | Outpatient (CLI) | payer MEDICARE, OTHER ==
[~2025-02-25] MED LIST changes: +ACET250 PO; +AMOCLA875 PO; +Alphagan P5 ML LEFTEYE; +BRIMONIDINE TART5 M3 LEFTEYE; +GABAPENTIN600 MG PO; +METOPROLOL TART25 MG PO; +PLAVIX75 MG PO; +TIMDOROPSO LEFTEYE; +TRAM50 PO
[2025-02-25 16:33] LABS: D-Dimer, Quantitative 0.25 mg/L FEU (0.00-0.52); Fibrinogen 340.0 mg/dL (170-430); Prothrombin Time Results 11.0 Sec (9.7-11.5)
== END ==
LOC: LAB 14:36 → LAB SHORT 14:36
PROVIDERS: Nurse Practitioner
DX: I25.2 Old myocardial infarction (principal); F17.210 Nicotine dependence, cigarettes, uncomplicated; Z79.01 Long term (current) use of anticoagulants; I69.259 Hemiplegia and hemiparesis following other nontraumatic intracranial hemorrhage affecting unspecified side; D75.1 Secondary polycythemia
CPT/HCPCS: 85014; 85379; 85384; 85610; 85730